=== PATIENT | male | born 1955 | race African-American/Black ===

== ENCOUNTER 2017-09-02 20:44 | Inpatient (IN) | payer OTHER ==
[~2017-09-02] VITALS: Ht 170.2 cm; Wt 60.0 kg
[~2017-09-02 20:44] MED LIST: ABAC1TAB PO; CIPR-255 PO; CIPR1TAB11 PO; CLOP1TAB15 PO; LAMI150T23 PO; [UNRECOGNIZED DRUG - CODE] PO
[2017-09-02] MEDS ORDERED: VANCOMYCIN 1GM ED/ASU OMNICELL IV STA (21:44)
--- NOTE | 2017-09-02 21:45 | DIAGNOSTIC IMAGING REPORT ---
CHEST ONE VIEW PORTABLE CLINICAL HISTORY: Sepsis. COMPARISON STUDY: No previous studies for comparison. FINDINGS: The patient is rotated. No pneumothorax or pleural effusion is noted. There is no consolidation to suggest pneumonia. Cardiac size is normal. Mediastinal contours are unremarkable when allowing for patient rotation. IMPRESSION: No acute cardiopulmonary findings. Electronically signed by: Butch Jeronimo M.D. 09/02/2017 9:43 PM Dictated Date/Time: 09/02/2017 9:43 PM
--- NOTE | 2017-09-02 21:56 | DIAGNOSTIC IMAGING REPORT ---
R FOOT MIN 3 VIEWS ROUTINE CLINICAL HISTORY: Evaluate for osteomyelitis. COMPARISON: CT of the right foot August 08, 2017. FINDINGS: Postoperative findings consistent with transmetatarsal amputation of the right first through fifth digits is noted. Open wound involving the first metatarsal is noted. There is subtle lucency at the resection site. There is subtle irregularity of the distal aspect of the third metatarsal as well. Alignment of the tarsometatarsal joints is anatomic. IMPRESSION: 1. Status post transmetatarsal amputation of the right first through fifth digits. Open wound involves the distal aspect of the remaining first metatarsal with subtle osteolysis within the first metatarsal which raises the possibility of osteomyelitis. 2. Equivocal osteomyelitis of the distal remaining third metatarsal. Electronically signed by: Butch Jeronimo M.D. 09/02/2017 9:54 PM Dictated Date/Time: 09/02/2017 9:47 PM
[2017-09-02 22:00] LABS: BASO % 0.3 %; BASO ABS # 0.02 K/uL (0-0.2); EOS % 1.4 %; EOS ABS # 0.08 K/uL (0-0.5); HEMATOCRIT 38.3 % (42-52); HEMOGLOBIN 13.3 g/dL (14.0-18.0); IG# 0.01 K/uL (0.00-0.02); LYMPH % 27.5 %; LYMPH ABS # 1.61 K/uL (1.2-3.4); MEAN CELL VOLUME 103.8 fL (80-100); MEAN CORPUSCULAR HGB CONC 34.7 g/dl (32-36); MEAN PLATELET VOLUME 9.4 fL (7.4-10.4); MONO % 5.6 %; MONO ABS # 0.33 K/uL (0.11-0.59); NEUT ABS # 3.81 K/uL (1.4-6.5); PLATELET COUNT 279 K/uL (130-400); RED CELL DISTRIBUTION WIDTH CV 14.3 % (11.5-14.5); RED CELL DISTRIBUTION WIDTH SD 54.8 fL (36.4-46.3); WHITE BLOOD COUNT 5.86 K/uL (4.8-10.8)
[2017-09-02 22:14] LABS: PTT PATIENT 23.5 SECONDS (21.0-31.0)
[2017-09-02 22:28] LABS: ALBUMIN 3.9 gm/dl (3.4-5.0); CALCIUM 9.5 mg/dl (8.5-10.1); CREATININE 1.06 mg/dl (0.60-1.40); POTASSIUM 3.9 mmol/L (3.5-5.1); TOTAL PROTEIN 8.1 gm/dl (6.4-8.2)
[2017-09-02] MEDS ORDERED: [UNRECOGNIZED DRUG - OTHER] PO (22:56)
[2017-09-02] MEDS ORDERED: CIPR-255 PO (22:59)
[2017-09-02] MEDS ORDERED: CARV6.25 PO (23:09)
[2017-09-02] MEDS ORDERED: GLC/500 PO (23:09)
[2017-09-02] MEDS ORDERED: ACET300T3 PO (23:09)
[2017-09-02] MEDS ORDERED: FLUO20CA35 PO (23:09)
[2017-09-02] MEDS ORDERED: EFAV600T PO (23:09)
[2017-09-02] MEDS ORDERED: MULT-506 PO (23:09)
[2017-09-02] MEDS ORDERED: VANCOMYCIN CONSULT ACTIVE PRN (23:15)
[2017-09-02] MEDS ORDERED: ACETAMINOPHEN 325 MG TAB PO PRN (23:15)
[2017-09-02] MEDS ORDERED: POLYETHYLENE (MIRALAX) 17 GM PACK PO PRN (23:15)
[2017-09-02] MEDS ORDERED: PIPERACILL/TAZOBAC CONSULT ACTIVE PRN (23:15)
[2017-09-02] MEDS ORDERED: ONDANSETRON INJ 2 MG/ML 2 ML VIAL IV PRN (23:15)
[2017-09-03] VITALS (7 sets, daily range): BP systolic 113–150; BP diastolic 67–82; PULSE 58–75; TEMP 36.6–37.2; O2SAT 99–100; Ht 170.2 cm; Wt 60.0 kg
--- NOTE | 2017-09-03 00:11 | EMERGENCY ROOM VISIT NOTE ---
History Report prepared by Diane: Nic Mariano Under the Supervision of: Dr. Artur Shukla M.D. First contact with patient: 20:48 Chief Complaint: WOUND INFECTION Stated Complaint: R FOOT INFECTION History of Present Illness The patient is a 62 year old male who presents to the Emergency Room with complaints of a wound on his right foot since his foot surgery on June 14. He states that he had a toe infection and had his toes removed at [facility] on June 14. He was discharged with aspirin and antibiotics. He has since been living with family in [place]. He reports that the wound on his foot has been open and exposing the bone for about a month and has since been placed back on antibiotics. He states that he has been sent to see a surgeon from [facility] who told him that he should have surgery, but the patient states he is waiting for a second opinion. He also notes that he was sent for blood work at the [facility] a couple days ago with no reported abnormalities. He states that today a new home care nurse told him that judging from the status of his foot, he should come to the ER. The patient does not believe it has been worsening recently. The patient denies fever or vomiting. He reports HIV for which he takes medication and that he is diabetic. He reports that he was told that the CT scan performed on August 08 was normal. Source of History: patient Onset: June 14 Position: foot (right) Quality: other (wound with bone exposed) Timing: constant Modifying Factors (Worsening): other (Palpation) Associated Symptoms: No fevers, No vomiting Review of Systems See HPI for pertinent positives & negatives. A total of 10 systems reviewed and were otherwise negative. Past Medical & Surgical Medical Problems: (1) Amputated toe (2) Diabetes (3) HIV (human immunodeficiency virus infection) (4) Osteomyelitis Family History Cancer Diabetes mellitus Hypertension Social History Smoking Status: Current Every Day Smoker Drug Use: marijuana Marital Status: Housing Status: lives with family Occupation Status: retired, disabled Current/Historical Medications Scheduled Abacavir Mugovkn-Wsknvhvuig-Zx (Trizivir), 1 TAB PO UD Carvedilol (Coreg), 6.25 MG PO Q12 Ciprofloxacin Hcl (Cipro), 500 MG PO BID Clopidogrel (Plavix), 75 MG PO DAILY Efavirenz (Sustiva), 600 MG PO HS Fluoxetine (Prozac), 20 MG PO DAILY Metformin Hcl (Glucophage), 500 MG PO BID Multivitamin (Multivitamin), 1 TAB PO DAILY Scheduled PRN Acetaminophen/Codeine (Tylenol W/Codeine #3), 2 TAB PO Q6H PRN for Pain Allergies Coded Allergies: No Known Allergies (Unverified , 07/28/17) Physical Exam Vital Signs Date Time Temp Pulse Resp B/P (MAP) Pulse Ox O2 Delivery O2 Flow Rate FiO2 09/02/17 23:07 76 18 136/70 99 Room Air 09/02/17 21:17 100 Room Air 09/02/17 20:47 36.7 79 142/90 100 Room Air Physical Exam Constitutional: Vital signs reviewed. Eyes: Pupils are equal round reactive to light. Conjunctiva are noninjected. ENT: Pharynx is clear without erythema or exudate. Mucous membranes are moist. Neck supple without meningeal signs. Respiratory: Clear to auscultation bilaterally. Breath sounds are equal bilaterally. Cardiovascular: Regular rate and rhythm. No rubs or gallops. GI: Soft, nondistended and nontender. Bowel sounds are present. Musculoskeletal: Open wound to right foot with amputation of all toes. First metatarsal is visible, no purulent discharge, diffuse tenderness Integumentary: No cyanosis. Neurological: The patient is awake and alert. No focal deficits. Psychiatric: Normal affect. Medical Decision & Procedures ER Provider Diagnostic Interpretation: Radiology results as stated below per my review and the radiologist's interpretation: Patient: LEYDA VALDEZ Address1: [address] [place] [address] Rec: [id number] Address2: Acct ID: [id number] [facility] Zip: [place] [address] Date: 1955 Sex: M Room/Bed: Ref Phy: [facility] SC: REBECCA Att Phy: Report #: [id number] Lynnette Phy: [facility] Test: [id number] Admit Phy: Healthcare Financial Analyst: LUCY Interpreting Phy: Butch Jeronimo MD Diagnosis: R FOOT INFECTION Ordering Phy: Artur Shukla MD Service Date: 09/02/17 Admit Date: 09/02/17 MNE: [id number] CONF: DICTATED BY: Butch Jeronimo MD]] CC: Artur Shukla M.D. [facility] Endcc: [~ rep ct add3]] CHEST ONE VIEW PORTABLE CLINICAL HISTORY: Sepsis. COMPARISON STUDY: No previous studies for comparison. FINDINGS: The patient is rotated. No pneumothorax or pleural effusion is noted. There is no consolidation to suggest pneumonia. Cardiac size is normal. Mediastinal contours are unremarkable when allowing for patient rotation. IMPRESSION: No acute cardiopulmonary findings. Electronically signed by: Butch Jeronimo M.D. 09/02/2017 9:43 PM Dictated Date/Time: 09/02/2017 9:43 PM Patient: LEYDA VALDEZ Address1: [address] [place] [address] Rec: [id number] Address2: Acct ID: [id number] [facility] Zip: [place] [address] Date: 1955 Sex: M Room/Bed: Ref Phy: [facility] SC: REBECCA Att Phy: Report #: [id number] Lynnette Phy: [facility] Test: FT Admit Phy: Healthcare Financial Analyst: LUCY Interpreting Phy: Butch Jeronimo MD Diagnosis: R FOOT INFECTION Ordering Phy: Artur Shukla MD Service Date: 09/02/17 Admit Date: 09/02/17 MNE: [id number] CONF: DICTATED BY: Butch Jeronimo MD]] CC: Artur Shukla M.D. [facility] Endcc: [~ rep ct add3]] R FOOT MIN 3 VIEWS ROUTINE CLINICAL HISTORY: Evaluate for osteomyelitis. COMPARISON: CT of the right foot August 08, 2017. FINDINGS: Postoperative findings consistent with transmetatarsal amputation of the right first through fifth digits is noted. Open wound involving the first metatarsal is noted. There is subtle lucency at the resection site. There is subtle irregularity of the distal aspect of the third metatarsal as well. Alignment of the tarsometatarsal joints is anatomic. IMPRESSION: 1. Status post transmetatarsal amputation of the right first through fifth digits. Open wound involves the distal aspect of the remaining first metatarsal with subtle osteolysis within the first metatarsal which raises the possibility of osteomyelitis. 2. Equivocal osteomyelitis of the distal remaining third metatarsal. Electronically signed by: Butch Jeronimo M.D. 09/02/2017 9:54 PM Dictated Date/Time: 09/02/2017 9:47 PM Laboratory Results 09/02/17 21:34 Red Blood Count 3.69, Mean Corpuscular Volume 103.8, Mean Corpuscular Hemoglobin 36.0, Mean Corpuscular Hemoglobin Concent 34.7, Mean Platelet Volume 9.4, Neutrophils (%) (Auto) 65.0, Lymphocytes (%) (Auto) 27.5, Monocytes (%) ( Auto) 5.6, Eosinophils (%) (Auto) 1.4, Basophils (%) (Auto) 0.3, Neutrophils # ( Auto) 3.81, Lymphocytes # (Auto) 1.61, Monocytes # (Auto) 0.33, Eosinophils # ( Auto) 0.08, Basophils # (Auto) 0.02 09/02/17 21:34 Test 09/02/17 21:34 09/02/17 21:46 White Blood Count 5.86 K/uL (4.8-10.8) Red Blood Count 3.69 M/uL (4.7-6.1) Hemoglobin 13.3 g/dL (14.0-18.0) Hematocrit 38.3 % (42-52) Mean Corpuscular Volume 103.8 fL (80-100) Mean Corpuscular Hemoglobin 36.0 pg (25-34) Mean Corpuscular Hemoglobin Concent 34.7 g/dl (32-36) Platelet Count 279 K/uL (130-400) Mean Platelet Volume 9.4 fL (7.4-10.4) Neutrophils (%) (Auto) 65.0 % Lymphocytes (%) (Auto) 27.5 % Monocytes (%) (Auto) 5.6 % Eosinophils (%) (Auto) 1.4 % Basophils (%) (Auto) 0.3 % Neutrophils # (Auto) 3.81 K/uL (1.4-6.5) Lymphocytes # (Auto) 1.61 K/uL (1.2-3.4) Monocytes # (Auto) 0.33 K/uL (0.11-0.59) Eosinophils # (Auto) 0.08 K/uL (0-0.5) Basophils # (Auto) 0.02 K/uL (0-0.2) RDW Standard Deviation 54.8 fL (36.4-46.3) RDW Coefficient of Variation 14.3 % (11.5-14.5) Immature Granulocyte % (Auto) 0.2 % Immature Granulocyte # (Auto) 0.01 K/uL (0.00-0.02) Prothrombin Time 10.1 SECONDS (9.0-12.0) Prothromb Time International Ratio 1.0 (0.9-1.1) Activated Partial Thromboplast Time 23.5 SECONDS (21.0-31.0) Partial Thromboplastin Ratio 0.9 Anion Gap 8.0 mmol/L (3-11) Est Creatinine Clear Calc Drug Dose 59.7 ml/min Estimated GFR () 85.5 Estimated GFR (Non- 73.8 BUN/Creatinine Ratio 25.0 (10-20) Calcium Level 9.5 mg/dl (8.5-10.1) Total Bilirubin 0.1 mg/dl (0.2-1) Aspartate Amino Transf (AST/SGOT) 12 U/L (15-37) Alanine Aminotransferase (ALT/SGPT) 20 U/L (12-78) Alkaline Phosphatase 149 U/L (45-117) Total Protein 8.1 gm/dl (6.4-8.2) Albumin 3.9 gm/dl (3.4-5.0) Globulin 4.2 gm/dl (2.5-4.0) Albumin/Globulin Ratio 0.9 (0.9-2) Bedside Lactic Acid Venous 2.80 mmol/L (0.90-1.70) Laboratory results as reviewed by me. Medications Administered Medications (Trade) Dose Ordered Sig/Sea Route Start Time Stop Time Status Last Admin Dose Admin Vancomycin HCl (Vancomycin 1gm Ed/Asu Omnicell) 1 gm NOW STAT IV 09/02/17 21:44 09/02/17 21:46 DC 09/02/17 21:57 1 GM ED Course 2057: The patient was evaluated in room C4. A complete history and physical exam was performed. 2143: Ordered Vancomycin HCl 1 gm IV. 2234: I spoke with Dr. Froylan Araujo Hospitalist. He will reevaluate the patient for admission. Medical Decision This is a 62-year-old male who presents with right foot pain. Differential diagnosis includes wound infection, sepsis, osteomyelitis, outpatient treatment failure, cellulitis, abscess. I did perform a limited focused review of portions of the patient's old chart on the electronic medical record. The patient had a August 02 debridement of right foot wound. He had a CT scan of the right leg August 08. Concerning of osteomyelitis of the 5th right metatarsal bone. I did evaluate the patient as noted above. The patient has a nonhealing wound to the right foot. It is open with bone exposed. Apparently it has been this way for a month. He had a CAT scan on August 08 which was concerning for osteomyelitis. He was told he needed surgery but declined at the time, waiting for a second opinion. He was sent here today by a home health nurse who was concerned about the appearance of the foot. IV access was established. The patient was placed on a continuous supervisor order takers. I did order and personally review the patient's foot x-ray as described above. He does have signs of osteomyelitis. I did order and review the patient's blood work as noted in the electronic medical record. Lactic acid is elevated. Blood cultures were obtained. I did treat the patient with IV vancomycin. The patient has a history of diabetes, HIV and peripheral vascular disease. I did recommend hospitalization for further care and evaluation. I did discuss the case with the hospitalist and trimming caser. Medication Reconcilliation Current Medication List: was personally reviewed by me Blood Pressure Screening Patient's blood pressure: Elevated blood pressure Blood pressure disposition: Referred to PCP Consults Time Called: 2228 Consulting Physician: Dr. Froylan Araujo Hospitalist Returned Call: [phone] Froylan Araujo Hospitalkim. He will reevaluate the patient for hospitalization. Impression Primary Impression: Osteomyelitis of right foot Additional Impressions: HIV (human immunodeficiency virus infection) Failure of outpatient treatment Scribe Attestation The scribe's documentation has been prepared under my direct and personally reviewed by me in its entirety. I confirm that the note above accurately reflects all work, treatment, procedures, and medical decision making performed by me. Departure Information Dispostion Being Evaluated By Hospitalist Referrals No Doctor, Assigned (PCP) Patient Instructions My [facility] Problem Qualifiers Primary Impression: Osteomyelitis of right foot Osteomyelitis type: unspecified type Qualified Codes: M86.9 - Osteomyelitis , unspecified
[2017-09-03] MEDS ORDERED: VANCOMYCIN IV 500 MG in SODIUM CHLORIDE 0.9% 250ML 250 ML IV STA (00:14)
[2017-09-03] MEDS ORDERED: PIPERACILL/TAZOBAC IV 4.5 GM in DEXTROSE 5% 100ML 100 ML IV STA (00:15)
--- NOTE | 2017-09-03 00:39 | HISTORY & PHYSICAL EXAMINATION ---
DATE OF ADMISSION: 09/02/2017 CHIEF COMPLAINT: Right foot infection. HISTORY OF PRESENT ILLNESS: A 62-year-old male with past medical history significant for hypertension, diabetes, HIV positive, on antivirals. Presents with right foot infection. The patient recently moved to [place] to live with his son. In [facility] in [place] he had right toe 1 to 5 amputation. The patient says after that he moved to [place] and [facility] He is on antibiotics, Cipro, but today home care nurse saw him and said that he needed to come to the hospital. His bone is exposed on the right foot but no foul smelling and drainage seen. No obvious erythema seen. Denies any fever, chills. Currently resting comfortably and hemodynamically stable. No blurred vision, no chest pain. Denies any headaches. No earaches. No chest pain, no shortness of breath, no nausea, no vomiting, no abdominal pain. Says he is doing okay and everything else is fine and does not want to answer the review questions. ALLERGIES: No known drug allergies. PAST MEDICAL HISTORY: As mentioned. PAST SURGICAL HISTORY: He says he just had amputation of his left foot toes. MEDICATIONS: Patient is on Cipro 500 mg p.o. b.i.d., metformin 500 mg p.o. b.i.d., Trizivir 1 tablet as directed, Tylenol with codeine 2 tablets p.o. q. 6 hours p.r.n., Coreg 6.25 mg p.o. b.i.d., Plavix 75 mg p.o. daily, Sustiva 600 mg p.o. at bedtime, Prozac 20 mg p.o. daily, multivitamin 1 tablet p.o. daily. FAMILY HISTORY: Says both of his parents are . SOCIAL HISTORY: He quit smoking, denies any alcohol use. REVIEW OF SYMPTOMS: As per HPI. Rest of the symptoms, patient is not answering. PHYSICAL EXAMINATION: GENERAL: Patient is of moderate build, not in distress. VITAL SIGNS: Temperature 36.7, pulse 100, respiratory rate 18, blood pressure 142/90, oxygen 100% room air. HEENT: No pallor, no icterus. NECK: No neck masses. CARDIOVASCULAR: S1, S2 heard, regular rate and rhythm, no murmur, no gallop. RESPIRATORY SYSTEM: Normal AP diameter. No accessory muscle use. No wheezing, no crackles. ABDOMEN: Soft, bowel sounds present, nontender, no distention. CENTRAL NERVOUS SYSTEM: Nonfocal. EXTREMITIES: No edema seen. Right foot from first to fifth toe s/p amputation amputation site is exposed with visible bone, but no drainage and no foul swelling or erythema seen. LABORATORIES: WBC 5.8, hemoglobin 13.3, hematocrit 38.3, platelets 279. Sodium 139, potassium 3.9, chloride 107, bicarbonate 24, BUN 27, creatinine 1.06, serum glucose 128, point of care lactic acid 2.8, calcium 9.5, total bilirubin 0.1, , AST 12, ALT 20, alkaline phosphatase is 149. PT 10.1, INR 1, APTT 23.5. Foot x-ray, status post transmetatarsal amputation of right 1st through 5th digits, Open wound involves the distal aspect of the remaining first metatarsal with subtle osteolysis within the first metatarsal space with raises a possibility of osteomyelitis, Equivocal osteomyelitis of the distal remaining 3rd metatarsal. No acute cardiopulmonary findings. ASSESSMENT AND PLAN: This is a 62-year-old male who presents with possible osteomyelitis of the Right foot. 1. Osteomyelitis of the Right foot, recently had amputation of 1st through 5th digits of his right foot at [facility]. Currently, came to live with his son in [place], [facility]. There is an open wound with bone exposed. Does not complain of much pain. No drainage . We will place him on IV Zosyn and IV vancomycin. Consult ortho and ID and wound care and monitor on medical floor. 2. History of HIV. Continue his home medications. 3. Diabetes. Hold metformin. Place on insulin sliding scale. 4. Hypertension. Continue his Coreg. 5. Deep venous thrombosis prophylaxis, heparin subQ. DISPOSITION: Admit to medical floor. Expect to discharge home and follow with his family doctor. Level 1 full code. MTDD
[2017-09-03] MEDS: SODIUM CHLORIDE 0.9% 1000ML 1,000 ML IV SCH ×2 (01:10→23:45)
[2017-09-03] MEDS: INSULIN ASPART 100 UNITS/ML 3 ML PEN SC SCH ×4 (08:00→21:00)
[2017-09-03 08:07] LABS: BASO % 0.2 %; BASO ABS # 0.01 K/uL (0-0.2); EOS % 1.7 %; EOS ABS # 0.08 K/uL (0-0.5); HEMATOCRIT 31.9 % (42-52); HEMOGLOBIN 11.1 g/dL (14.0-18.0); LYMPH % 28.6 %; LYMPH ABS # 1.38 K/uL (1.2-3.4); MEAN CELL VOLUME 103.6 fL (80-100); MEAN CORPUSCULAR HGB CONC 34.8 g/dl (32-36); MEAN PLATELET VOLUME 8.9 fL (7.4-10.4); MONO % 9.3 %; MONO ABS # 0.45 K/uL (0.11-0.59); NEUT % 60.2 %; PLATELET COUNT 255 K/uL (130-400); RED CELL DISTRIBUTION WIDTH CV 14.1 % (11.5-14.5); RED CELL DISTRIBUTION WIDTH SD 53.1 fL (36.4-46.3); WHITE BLOOD COUNT 4.82 K/uL (4.8-10.8)
[2017-09-03 08:32] LABS: CALCIUM 8.6 mg/dl (8.5-10.1); CREATININE 0.89 mg/dl (0.60-1.40); POTASSIUM 3.8 mmol/L (3.5-5.1)
[2017-09-03] MEDS: PIPERACILL/TAZOBAC IV 4.5 GM in D5W 100 ML IV SCH ×3 (08:43→23:49)
[2017-09-03] MEDS: CARVEDILOL 6.25 MG TAB PO SCH ×2 (08:51→20:37)
[2017-09-03] MEDS: FLUOXETINE HCL 20 MG CAP PO SCH (08:51)
[2017-09-03] MEDS: MULTIVITAMIN TAB PO SCH (08:51)
[2017-09-03] MEDS: CLOPIDOGREL BISULFATE 75 MG TAB PO SCH (08:51)
[2017-09-03] MEDS: HEPARIN SOD 5000 UNIT/0.5 ML CARP SQ SCH ×2 (08:58→20:39)
[2017-09-03] MEDS: VANCOMYCIN IV 750 MG in SODIUM CHLORIDE 0.9% 250ML 250 ML IV SCH (13:39)
[2017-09-03] MEDS ORDERED: VANCOMYCIN IV 750 MG in SODIUM CHLORIDE 0.9% 250ML 250 ML IV SCH (14:00)
--- NOTE | 2017-09-03 14:22 | Medical Consult ---
Consultation Date of Consultation: Sep 03, 2017. Attending Physician: Frandy Moffett M.D. Reason for Consultation: Osteomyelitis left foot History of Present Illness 62-year-old male with longstanding HIV infection, well maintained on current anti-retroviral medications with reportedly undetectable viral load good CD4 count, was hospitalized in June for left foot infection, ultimately requiring transmetatarsal amputation. Patient reportedly receiving ciprofloxacin after discharge. He was now referred the hospital by wound care nurse because of worsening left foot wound with exposed bone and purulent drainage with foul odor. Patient denies any significant fever or chills. Currently without pain in his foot, up to 3/10 in intensity in recent past. He has been started empirically on vancomycin and Zosyn, cultures are pending. Orthopedic consultation pending. Past Medical/Surgical History Medical Problems: (1) Diabetic foot ulcer Status: Acute (2) Failure of outpatient treatment Status: Acute (3) Osteomyelitis of right foot Status: Acute (4) Skin wound from surgical incision Status: Acute Medical Problems: (1) Amputated toe (2) Diabetes (3) HIV (human immunodeficiency virus infection) (4) Osteomyelitis Family History Cancer Diabetes mellitus Hypertension Social History Smoking Status: Former Smoker Drug Use: marijuana Marital Status: Housing Status: lives with family Occupation Status: retired, disabled Allergies Coded Allergies: No Known Allergies (Unverified , 07/28/17) Current Inpatient Medications Current Inpatient Medications Medications (Trade) Dose Ordered Sig/Sea Route Start Time Stop Time Status Last Admin Dose Admin Acetaminophen (Tylenol Tab) 650 mg Q4H PRN PO 09/02/17 23:15 10/02/17 23:14 Polyethylene (Miralax Powder Packet) 17 gm DAILY PRN PO 09/02/17 23:15 10/02/17 23:14 Ondansetron HCl (Zofran Inj) 4 mg Q6H PRN IV 09/02/17 23:15 10/02/17 23:14 Heparin Sodium (Porcine) (Heparin Sq 5000 Unit/0.5ml) 5,000 unit Q12H SQ 09/03/17 09:00 10/03/17 08:59 09/03/17 08:58 5,000 UNIT Acetaminophen/ Codeine Phosphate (Tylenol w/ Codeine #3 Tab) 2 tab Q6H PRN PO 09/02/17 23:15 10/02/17 23:14 Carvedilol (Coreg Tab) 6.25 mg Q12 PO 09/03/17 09:00 10/03/17 08:59 09/03/17 08:51 6.25 MG Clopidogrel Bisulfate (plAVix TAB) 75 mg DAILY PO 09/03/17 09:00 10/03/17 08:59 09/03/17 08:51 75 MG Fluoxetine HCl (Prozac Cap) 20 mg DAILY PO 09/03/17 09:00 10/03/17 08:59 09/03/17 08:51 20 MG Multivitamins (Multivitamin Tab) 1 tab DAILY PO 09/03/17 09:00 10/03/17 08:59 09/03/17 08:51 1 TAB Miscellaneous Information (Order Awaiting Action) 1 ea QS N/A 09/03/17 08:00 10/03/17 07:59 Miscellaneous Information (Order Awaiting Action) 1 ea QS N/A 09/03/17 08:00 10/03/17 07:59 Vancomycin HCl (Consult) 1 ea UD PRN N/A 09/02/17 23:15 10/02/17 23:14 Miscellaneous Information (Consult) 1 ea UD PRN N/A 09/02/17 23:15 10/02/17 23:14 Sodium Chloride 1,000 ml @ 50 mls/hr Q20H IV 09/02/17 23:59 10/02/17 23:58 09/03/17 01:10 50 MLS/HR Insulin Aspart (novoLOG ASPART) SLIDING SCALE G... ACHS SC 09/03/17 07:00 10/03/17 06:59 Piperacillin Sod/ Tazobactam Sod 4.5 gm/Dextrose 120 ml @ 30 mls/hr Q8H IV 09/03/17 08:00 10/15/17 07:59 09/03/17 08:43 30 MLS/HR Vancomycin HCl 750 mg/Sodium Chloride 265 ml @ 125 mls/hr Q12H IV 09/03/17 14:00 10/15/17 13:59 09/03/17 13:39 125 MLS/HR Review of Systems All systems were reviewed and are negative except as per HPI Physical Exam Date Time Temp Pulse Resp B/P (MAP) Pulse Ox O2 Delivery O2 Flow Rate FiO2 09/03/17 09:01 75 119/79 (92) 09/03/17 08:00 Room Air 09/03/17 06:27 36.6 70 16 113/76 (88) 100 Room Air 09/03/17 01:24 37.2 73 15 139/82 100 Room Air 09/03/17 00:03 37.2 73 15 139/82 (101) 100 Room Air 09/03/17 00:00 Room Air 09/02/17 23:07 76 18 136/70 99 Room Air 09/02/17 21:17 100 Room Air 09/02/17 20:47 36.7 79 142/90 100 Room Air General Appearance: WD/WN, no apparent distress Head: normocephalic, atraumatic Eyes: normal inspection, EOMI, sclerae normal ENT: normal ENT inspection, pharynx normal Neck: supple, no adenopathy, thyroid normal, trachea midline Respiratory/Chest: chest non-tender, lungs clear, normal breath sounds, no respiratory distress Cardiovascular: regular rate, rhythm, no gallop, no murmur Abdomen/GI: normal bowel sounds, non tender, soft, no organomegaly Back: normal inspection, no CVA tenderness Extremities/Musculoskelatal: no calf tenderness, non-tender Neurologic/Psych: alert, oriented x 3 Skin: normal color, no rash, + pertinent finding (Transmetatarsal site indurated with exposed bone) Laboratory Results Date/Time Source Procedure Growth Status 09/02/17 21:45 Blood Blood Culture Pending Received 09/02/17 21:34 Blood Blood Culture Pending Received Last 24 Hours Test 09/02/17 21:34 09/02/17 21:46 09/03/17 07:33 09/03/17 08:24 White Blood Count 5.86 K/uL 4.82 K/uL Red Blood Count 3.69 M/uL 3.08 M/uL Hemoglobin 13.3 g/dL 11.1 g/dL Hematocrit 38.3 % 31.9 % Mean Corpuscular Volume 103.8 fL 103.6 fL Mean Corpuscular Hemoglobin 36.0 pg 36.0 pg Mean Corpuscular Hemoglobin Concent 34.7 g/dl 34.8 g/dl Platelet Count 279 K/uL 255 K/uL Mean Platelet Volume 9.4 fL 8.9 fL Neutrophils (%) (Auto) 65.0 % 60.2 % Lymphocytes (%) (Auto) 27.5 % 28.6 % Monocytes (%) (Auto) 5.6 % 9.3 % Eosinophils (%) (Auto) 1.4 % 1.7 % Basophils (%) (Auto) 0.3 % 0.2 % Neutrophils # (Auto) 3.81 K/uL 2.90 K/uL Lymphocytes # (Auto) 1.61 K/uL 1.38 K/uL Monocytes # (Auto) 0.33 K/uL 0.45 K/uL Eosinophils # (Auto) 0.08 K/uL 0.08 K/uL Basophils # (Auto) 0.02 K/uL 0.01 K/uL RDW Standard Deviation 54.8 fL 53.1 fL RDW Coefficient of Variation 14.3 % 14.1 % Immature Granulocyte % (Auto) 0.2 % 0.0 % Immature Granulocyte # (Auto) 0.01 K/uL 0.00 K/uL Prothrombin Time 10.1 SECONDS Prothromb Time International Ratio 1.0 Activated Partial Thromboplast Time 23.5 SECONDS Partial Thromboplastin Ratio 0.9 Sodium Level 139 mmol/L 139 mmol/L Potassium Level 3.9 mmol/L 3.8 mmol/L Chloride Level 107 mmol/L 110 mmol/L Carbon Dioxide Level 24 mmol/L 22 mmol/L Anion Gap 8.0 mmol/L 7.0 mmol/L Blood Urea Nitrogen 27 mg/dl 22 mg/dl Creatinine 1.06 mg/dl 0.89 mg/dl Est Creatinine Clear Calc Drug Dose 59.7 ml/min 71.2 ml/min Estimated GFR () 85.5 104.7 Estimated GFR (Non- 73.8 90.4 BUN/Creatinine Ratio 25.0 24.7 Random Glucose 128 mg/dl 126 mg/dl Calcium Level 9.5 mg/dl 8.6 mg/dl Total Bilirubin 0.1 mg/dl Aspartate Amino Transf (AST/SGOT) 12 U/L Alanine Aminotransferase (ALT/SGPT) 20 U/L Alkaline Phosphatase 149 U/L Total Protein 8.1 gm/dl Albumin 3.9 gm/dl Globulin 4.2 gm/dl Albumin/Globulin Ratio 0.9 Bedside Lactic Acid Venous 2.80 mmol/L Magnesium Level 1.7 mg/dl Bedside Glucose 114 mg/dl Test 09/03/17 12:00 Bedside Glucose 114 mg/dl R FOOT MIN 3 VIEWS ROUTINE CLINICAL HISTORY: Evaluate for osteomyelitis. COMPARISON: CT of the right foot August 08, 2017. FINDINGS: Postoperative findings consistent with transmetatarsal amputation of the right first through fifth digits is noted. Open wound involving the first metatarsal is noted. There is subtle lucency at the resection site. There is subtle irregularity of the distal aspect of the third metatarsal as well. Alignment of the tarsometatarsal joints is anatomic. IMPRESSION: 1. Status post transmetatarsal amputation of the right first through fifth digits. Open wound involves the distal aspect of the remaining first metatarsal with subtle osteolysis within the first metatarsal which raises the possibility of osteomyelitis. 2. Equivocal osteomyelitis of the distal remaining third metatarsal. Electronically signed by: Butch Jeronimo M.D. 09/02/2017 9:54 PM Dictated Date/Time: 09/02/2017 9:47 PM Assessment & Plan 62-year-old diabetic male with HIV infection status post right transmetatarsal amputation now with open wound with exposed bone and likely osteomyelitis. Pending further cultures, vancomycin and Zosyn should provide adequate coverage. Would recommend surgical consultation is likely will need revision surgery. Will continue on his HIV medications. Will follow.
--- NOTE | 2017-09-03 17:24 | Progress Note ---
Internal Med Progress Note Date of Service: Sep 03, 2017. Provider Documentation: SUBJECTIVE: The patient was seen and examined in medical floor He was admitted yesterday with possible osteomyelitis involving the toe amputation site on left foot He does not have any significant symptoms associated with the wound He was seen by the visiting nurse at home who mentioned that the wound has been getting worse. There was a family dispute especially with his [id number] and he called the police for help. Following that he was taken to emergency room and now he is admitted for continuation of care He denies any complaints today OBJECTIVE: Vital Signs-as noted below Exam: General-no apparent distress Denies any pain or drainages from the wound Eyes-normal ENT-normal Neck-supple Lungs-clear to auscultate bilaterally Heart-regular Abdomen-benign, soft, nontender, no organomegaly Extremities-no edema, chronic skin changes, no palpable pulses All of the toes on left foot are amputated Amputation stem has a skin gap with visible first metatarsal bone Minimal to no surrounding inflammation Neuro-alert, awake and oriented 3 No focal sensory and/or motor deficit appreciated Lab data as noted below. ASSESSMENT & PLAN: He is a 62-year-old male with past medical history significant for hypertension , diabetes, HIV positive, on antivirals presented with the open and reasonably healed left foot amputation site with the possibility of ongoing osteomyelitis. Osteomyelitis of the Right foot, Status post amputation of 1st through 5th digits of his right foot at [facility] in June of this year There is an open wound with bone exposed-has been there for the last 3 months or so No complaints of pain , swelling , redness , tenderness and more drainages Has exposed terminal part of first metatarsal bone suspicious for osteomyelitis Started on IV Zosyn and IV vancomycin. Appreciate ID input and recommendation Ortho has been consulted Patient denies any symptoms History of HIV. Continue his home medications. Any further recommendation as per ID Diabetes. Hold metformin. Place on insulin sliding scale. Check hemoglobin A1c Hypertension. Continue his Coreg. Deep venous thrombosis prophylaxis, heparin subQ. Social issues; this is what he mentioned about his current living situation. He was in [place] and going with his livelihood without any significant problem He moved to [place] about 3 months back and has been living with his son and [id number] who has been sharing his social security check. He personally does not like to be cared like a child by her [id number]. Following that cell or agreement with his [id number] yesterday he had to call the police for help and following that he was brought into the emergency room for further evaluation of his right foot wound. DISPOSITION: Admit to medical floor. Expect to discharge home and follow with his family doctor. Level 1 full code. Vital Signs: Date Time Temp Pulse Resp B/P (MAP) Pulse Ox O2 Delivery O2 Flow Rate FiO2 09/03/17 16:00 Room Air 09/03/17 14:59 37.1 65 16 117/71 (86) 99 Room Air 09/03/17 09:01 75 119/79 (92) 09/03/17 08:00 Room Air 09/03/17 06:27 36.6 70 16 113/76 (88) 100 Room Air 09/03/17 01:24 37.2 73 15 139/82 100 Room Air 09/03/17 00:03 37.2 73 15 139/82 (101) 100 Room Air 09/03/17 00:00 Room Air 09/02/17 23:07 76 18 136/70 99 Room Air 09/02/17 21:17 100 Room Air 09/02/17 20:47 36.7 79 142/90 100 Room Air Lab Results: Results Past 24 Hours Test 09/02/17 21:34 09/02/17 21:46 09/03/17 07:33 09/03/17 08:24 Range/Units White Blood Count 5.86 4.82 4.8-10.8 K/uL Red Blood Count 3.69 3.08 4.7-6.1 M/uL Hemoglobin 13.3 11.1 14.0-18.0 g/dL Hematocrit 38.3 31.9 42-52 % Mean Corpuscular Volume 103.8 103.6 80-100 fL Mean Corpuscular Hemoglobin 36.0 36.0 25-34 pg Mean Corpuscular Hemoglobin Concent 34.7 34.8 32-36 g/dl Platelet Count 279 255 130-400 K/uL Mean Platelet Volume 9.4 8.9 7.4-10.4 fL Neutrophils (%) (Auto) 65.0 60.2 % Lymphocytes (%) (Auto) 27.5 28.6 % Monocytes (%) (Auto) 5.6 9.3 % Eosinophils (%) (Auto) 1.4 1.7 % Basophils (%) (Auto) 0.3 0.2 % Neutrophils # (Auto) 3.81 2.90 1.4-6.5 K/uL Lymphocytes # (Auto) 1.61 1.38 1.2-3.4 K/uL Monocytes # (Auto) 0.33 0.45 0.11-0.59 K/uL Eosinophils # (Auto) 0.08 0.08 0-0.5 K/uL Basophils # (Auto) 0.02 0.01 0-0.2 K/uL RDW Standard Deviation 54.8 53.1 36.4-46.3 fL RDW Coefficient of Variation 14.3 14.1 11.5-14.5 % Immature Granulocyte % (Auto) 0.2 0.0 % Immature Granulocyte # (Auto) 0.01 0.00 0.00-0.02 K/uL Prothrombin Time 10.1 9.0-12.0 SECONDS Prothromb Time International Ratio 1.0 0.9-1.1 Activated Partial Thromboplast Time 23.5 21.0-31.0 SECONDS Partial Thromboplastin Ratio 0.9 Sodium Level 139 139 136-145 mmol/L Potassium Level 3.9 3.8 3.5-5.1 mmol/L Chloride Level 107 110 98-107 mmol/L Carbon Dioxide Level 24 22 21-32 mmol/L Anion Gap 8.0 7.0 3-11 mmol/L Blood Urea Nitrogen 27 22 7-18 mg/dl Creatinine 1.06 0.89 0.60-1.40 mg/dl Est Creatinine Clear Calc Drug Dose 59.7 71.2 ml/min Estimated GFR () 85.5 104.7 Estimated GFR (Non- 73.8 90.4 BUN/Creatinine Ratio 25.0 24.7 10-20 Random Glucose 128 126 70-99 mg/dl Calcium Level 9.5 8.6 8.5-10.1 mg/dl Total Bilirubin 0.1 0.2-1 mg/dl Aspartate Amino Transf (AST/SGOT) 12 15-37 U/L Alanine Aminotransferase (ALT/SGPT) 20 12-78 U/L Alkaline Phosphatase 149 45-117 U/L Total Protein 8.1 6.4-8.2 gm/dl Albumin 3.9 3.4-5.0 gm/dl Globulin 4.2 2.5-4.0 gm/dl Albumin/Globulin Ratio 0.9 0.9-2 Bedside Lactic Acid Venous 2.80 0.90-1.70 mmol/L Magnesium Level 1.7 1.8-2.4 mg/dl Bedside Glucose 114 70-99 mg/dl Test 09/03/17 12:00 Range/Units Bedside Glucose 114 70-99 mg/dl Microbiology Results 09/02/17 Blood Culture, Received Pending 09/02/17 Blood Culture, Received Pending
[2017-09-04] MEDS: VANCOMYCIN IV 750 MG in SODIUM CHLORIDE 0.9% 250ML 250 ML IV SCH ×2 (02:09→14:31)
--- NOTE | 2017-09-04 05:41 | DIAGNOSTIC IMAGING REPORT ---
ADDENDUM Review of the examination again confirms the presence of a stent within the right superficial femoral artery. It is patent. Although waveforms are bi/ triphasic, overall flow characteristics are somewhat diminished. This indicates considerable arterial occlusive change inferior to the knees bilaterally. There may be a small focal area of occlusion with a dampened reconstitution involving the popliteal artery on the right. These findings correlate well with the MICAELA indices. IMPRESSION:. Review of the study indicates significant arterial occlusive change inferior to the knees bilaterally, with potential small focal occlusion right popliteal vessel with immediate reconstitution. Dampened waveforms and flow bilaterally. Electronically signed by: Wilian Hernandez M.D. 09/05/2017 9:47 AM Dictated Date/Time: 09/05/2017 9:41 AM ORIGINAL REPORT ART DOP LOWER EXT BILAT CLINICAL HISTORY: r/o PAD arterial occlusive change COMPARISON STUDY: None FINDINGS: Real-time as well as Doppler evaluation of the arterial structures of the lower legs was performed. Waveforms are triphasic throughout. Velocity characteristics are unremarkable. Triphasic waveforms are noted within the right thigh. There is a stent within the right superficial femoral artery. The stent is patent. Vascular flow characteristics of the right lower extremity are unremarkable. There is diffuse ankle brachial index on the right is 0.51. On the left, posterior tibial ankle brachial index 0.63 and dorsalis pedis 0.58. There is a focal a small focal area of occlusion of the mid left superficial femoral artery. Moderate arterial occlusive changes seen throughout small vessel throughout bilaterally. IMPRESSION: Normal study. 1. Stent within the right superficial femoral artery which is patent. 2. Moderate to moderate a significant small vessel arterial occlusive change bilaterally. 3. Small focal area of stenosis and occlusion Mid distal left superficial femoral artery with moderate reconstitution. The above report was generated using voice recognition software. It may contain grammatical, syntax or spelling errors. Electronically signed by: Wilian Hernandez M.D. 09/04/2017 5:39 AM Dictated Date/Time: 09/04/2017 5:37 AM
[2017-09-04 06:02] LABS: BASO % 0.3 %; BASO ABS # 0.01 K/uL (0-0.2); EOS % 1.8 %; EOS ABS # 0.07 K/uL (0-0.5); HEMATOCRIT 31.4 % (42-52); HEMOGLOBIN 10.8 g/dL (14.0-18.0); IG# 0.01 K/uL (0.00-0.02); LYMPH ABS # 1.57 K/uL (1.2-3.4); MEAN CELL VOLUME 102.6 fL (80-100); MEAN CORPUSCULAR HEMOGLOBIN 35.3 pg (25-34); MEAN CORPUSCULAR HGB CONC 34.4 g/dl (32-36); MEAN PLATELET VOLUME 8.8 fL (7.4-10.4); MONO % 11.5 %; MONO ABS # 0.44 K/uL (0.11-0.59); NEUT % 45.1 %; NEUT ABS # 1.73 K/uL (1.4-6.5); PLATELET COUNT 242 K/uL (130-400); RED CELL DISTRIBUTION WIDTH CV 13.8 % (11.5-14.5); RED CELL DISTRIBUTION WIDTH SD 51.6 fL (36.4-46.3); WHITE BLOOD COUNT 3.83 K/uL (4.8-10.8)
[2017-09-04 06:24] LABS: CALCIUM 7.7 mg/dl (8.5-10.1); CREATININE 0.86 mg/dl (0.60-1.40); POTASSIUM 3.7 mmol/L (3.5-5.1)
[2017-09-04 07:01] VITALS: BP 128/80; PULSE 63; TEMP 37.1; O2SAT 99
[2017-09-04] MEDS: PIPERACILL/TAZOBAC IV 4.5 GM in D5W 100 ML IV SCH ×2 (07:34→16:25)
[2017-09-04] MEDS: CARVEDILOL 6.25 MG TAB PO SCH ×2 (08:42→21:27)
[2017-09-04] MEDS: MULTIVITAMIN TAB PO SCH (08:42)
[2017-09-04] MEDS: CLOPIDOGREL BISULFATE 75 MG TAB PO SCH (08:42)
[2017-09-04] MEDS: FLUOXETINE HCL 20 MG CAP PO SCH (08:43)
[2017-09-04] MEDS: HEPARIN SOD 5000 UNIT/0.5 ML CARP SQ SCH ×2 (08:45→21:22)
[2017-09-04] MEDS: INSULIN ASPART 100 UNITS/ML 3 ML PEN SC SCH ×4 (08:45→21:00)
[2017-09-04] MEDS ORDERED: VANCOMYCIN TROUGH ONE ×2 (13:30→17:30)
--- NOTE | 2017-09-04 14:28 | Progress Note ---
Medicine Progress Note Date & Time of Visit: Sep 04, 2017 at 14:28. Subjective CC: Follow-up visit for osteomyelitis right foot and other problems. HPI: No fever. Has intermittent foot pain. No drainage from wound. ROS: General- no fever, no chills Resp- no cough; no shortness of breath Cardiac- no chest pain, no edema GI- no nausea, no vomiting, no diarrhea, no constipation - no dysuria, no difficulty voiding . Objective Last 8 Hrs Date Time Temp Pulse Resp B/P (MAP) Pulse Ox O2 Delivery O2 Flow Rate FiO2 09/04/17 07:30 Room Air 09/04/17 07:01 37.1 63 18 128/80 (96) 99 Room Air Physical Exam: General- lying in bed; no distress Lungs- clear to auscultation; no respiratory distress Cardiovascular- RRR; no murmur or gallop appreciated; no JVD; no pretibial edema Abdomen- + bowel sounds, soft, nontender Extremities- no cyanosis; no calf tenderness; s/p right transmetatarsal amputation with dehisced wound and exposed first metatarsal; moderate tenderness plantar surface of right foot Neuro- alert, oriented Skin- warm & dry . Laboratory Results: Last 24 Hours Test 09/03/17 17:12 09/03/17 20:35 09/04/17 05:31 09/04/17 08:12 Bedside Glucose 105 mg/dl 117 mg/dl 126 mg/dl White Blood Count 3.83 K/uL Red Blood Count 3.06 M/uL Hemoglobin 10.8 g/dL Hematocrit 31.4 % Mean Corpuscular Volume 102.6 fL Mean Corpuscular Hemoglobin 35.3 pg Mean Corpuscular Hemoglobin Concent 34.4 g/dl Platelet Count 242 K/uL Mean Platelet Volume 8.8 fL Neutrophils (%) (Auto) 45.1 % Lymphocytes (%) (Auto) 41.0 % Monocytes (%) (Auto) 11.5 % Eosinophils (%) (Auto) 1.8 % Basophils (%) (Auto) 0.3 % Neutrophils # (Auto) 1.73 K/uL Lymphocytes # (Auto) 1.57 K/uL Monocytes # (Auto) 0.44 K/uL Eosinophils # (Auto) 0.07 K/uL Basophils # (Auto) 0.01 K/uL RDW Standard Deviation 51.6 fL RDW Coefficient of Variation 13.8 % Immature Granulocyte % (Auto) 0.3 % Immature Granulocyte # (Auto) 0.01 K/uL Erythrocyte Sedimentation Rate 10 mm/hr Sodium Level 139 mmol/L Potassium Level 3.7 mmol/L Chloride Level 110 mmol/L Carbon Dioxide Level 23 mmol/L Anion Gap 6.0 mmol/L Blood Urea Nitrogen 15 mg/dl Creatinine 0.86 mg/dl Est Creatinine Clear Calc Drug Dose 73.6 ml/min Estimated GFR () 106.2 Estimated GFR (Non- 91.6 BUN/Creatinine Ratio 17.6 Random Glucose 109 mg/dl Calcium Level 7.7 mg/dl Magnesium Level 1.7 mg/dl Vitamin B12 Level 845 pg/mL Folate 10.44 ng/mL Thyroid Stimulating Hormone (TSH) 1.000 uIu/ml Test 09/04/17 12:27 09/04/17 13:30 Bedside Glucose 115 mg/dl Assessment & Plan SUSPECTED OSTEOMYELITIS Ortho input appreciated. Records from [place] requested. Consult ID & Vascular Surgery. Continue IV antibiotic therapy with vancomycin and piperacillin / tazobactam. PERIPHERAL VASCULAR DISEASE Records from [place] requested regarding prior vascular evaluations / interventions. HIV Patient does not know results of recent viral load or CD4. Old records requested. He was encouraged to have his family bring in his antiviral meds so that they can be continued. DM TYPE 2 Check Hgb A1C. Hold metformin during hospital stay. Continue insulin coverage as needed. VTE PROPHYLAXIS SQ heparin. DISPOSITION To be determined; may need skilled care when medically stable. Primary Care follow-up with [facility]. Will need local follow-up with ID. . Current Inpatient Medications: Current Inpatient Medications Medications (Trade) Dose Ordered Sig/Sea Route Start Time Stop Time Status Last Admin Dose Admin Acetaminophen (Tylenol Tab) 650 mg Q4H PRN PO 09/02/17 23:15 10/02/17 23:14 Polyethylene (Miralax Powder Packet) 17 gm DAILY PRN PO 09/02/17 23:15 10/02/17 23:14 Ondansetron HCl (Zofran Inj) 4 mg Q6H PRN IV 09/02/17 23:15 10/02/17 23:14 Heparin Sodium (Porcine) (Heparin Sq 5000 Unit/0.5ml) 5,000 unit Q12H SQ 09/03/17 09:00 10/03/17 08:59 09/04/17 08:45 5,000 UNIT Acetaminophen/ Codeine Phosphate (Tylenol w/ Codeine #3 Tab) 2 tab Q6H PRN PO 09/02/17 23:15 10/02/17 23:14 Carvedilol (Coreg Tab) 6.25 mg Q12 PO 09/03/17 09:00 10/03/17 08:59 09/04/17 08:42 6.25 MG Clopidogrel Bisulfate (plAVix TAB) 75 mg DAILY PO 09/03/17 09:00 10/03/17 08:59 09/04/17 08:42 75 MG Fluoxetine HCl (Prozac Cap) 20 mg DAILY PO 09/03/17 09:00 10/03/17 08:59 09/04/17 08:43 20 MG Multivitamins (Multivitamin Tab) 1 tab DAILY PO 09/03/17 09:00 10/03/17 08:59 09/04/17 08:42 1 TAB Miscellaneous Information (Order Awaiting Action) 1 ea QS N/A 09/03/17 08:00 10/03/17 07:59 Miscellaneous Information (Order Awaiting Action) 1 ea QS N/A 09/03/17 08:00 10/03/17 07:59 Vancomycin HCl (Consult) 1 ea UD PRN N/A 09/02/17 23:15 10/02/17 23:14 Miscellaneous Information (Consult) 1 ea UD PRN N/A 09/02/17 23:15 10/02/17 23:14 Sodium Chloride 1,000 ml @ 50 mls/hr Q20H IV 09/02/17 23:59 10/02/17 23:58 09/03/17 23:45 50 MLS/HR Insulin Aspart (novoLOG ASPART) SLIDING SCALE G... ACHS SC 09/03/17 07:00 10/03/17 06:59 Piperacillin Sod/ Tazobactam Sod 4.5 gm/Dextrose 120 ml @ 30 mls/hr Q8H IV 09/03/17 08:00 10/15/17 07:59 09/04/17 07:34 30 MLS/HR Vancomycin HCl 750 mg/Sodium Chloride 265 ml @ 125 mls/hr Q12H IV 09/03/17 14:00 10/15/17 13:59 09/04/17 02:09 125 MLS/HR
[2017-09-04 15:06] VITALS: BP 134/78; PULSE 67; TEMP 37.1; O2SAT 99
--- NOTE | 2017-09-04 16:19 | ORTHOPEDIC CONSULTATION ---
DATE OF CONSULTATION: 09/04/2017 HISTORY OF PRESENT ILLNESS: This is a 62-year-old gentleman, seen at the request of Dr. Moffett and Dr. Galeano. The patient was seen due to concerns regarding open wound dehiscence of his right foot and likely osteomyelitis of the first and third metatarsals as diagnosed by radiographs in the Emergency Department. Patient has a history of right great toe ulceration, which he noted several months ago. He has seen at [facility] and had osteomyelitis of the great toe. The surgeon opted for a transmetatarsal amputation. The patient states that there was consideration for below knee amputation; however, by urging the surgeon to perform a TMA, he was attempting for limb salvage. He eventually then moved to [place] to live with his son in July and has been under the care of several providers including the wound care center. He was on Cipro and was seen by home care nursing, and she noted exposed bone of the first distal metatarsal, has recommended to follow up in the ER. He was seen in the ER, evaluated, and admitted to the hospitalist service. PAST MEDICAL HISTORY: Hypertension, type 2 diabetes mellitus, HIV, on chronic antiretrovirals, questionable peripheral vascular disease, and depression. PAST SURGICAL HISTORY: Right foot transmetatarsal amputation and other noncontributory procedures. ALLERGIES: No known drug allergies. MEDICATIONS: Cipro 500 mg p.o. b.i.d., metformin 500 mg p.o. b.i.d., Trizivir 1 tablet as directed, Tylenol with Codeine 2 tablets p.o. q.6 h. p.r.n., Coreg 6.25 mg p.o. b.i.d., Plavix 75 mg p.o. daily, Sustiva 600 mg p.o. at bedtime, Prozac 20 mg p.o. daily, multivitamin 1 tablet p.o. daily. SOCIAL HISTORY: Quit smoking. Denies alcohol or current drug use. He is retired. He lives with his son in [place]. PHYSICAL EXAMINATION: GENERAL: This is a cachectic appearing 62-year-old gentleman lying supine in his hospital room bed. He is alert and oriented x3. His speech is clear and fluent. Affect is appropriate. Responds to questions appropriately. EXTREMITIES: Examination of the foot demonstrates status post transmetatarsal amputation with partial wound dehiscence and exposure of the distal aspect of the first metatarsal. There is approximately from 10 to 7 mm of wound dehiscence from medial to lateral. There is some local eschar and no evidence of new granulation tissue particularly over the first metatarsal. There is no foul odor. Pedal pulses are not palpable; however, the foot is warm. There is scant hair growth on the feet and ankles. IMAGING: Radiographs and ultrasound reviewed demonstrating possible osteomyelitis of the distal first and third metatarsals, status post transmetatarsal amputation with obvious distal wound dehiscence. No obvious DVTs. LABORATORY DATA: Laboratories reviewed, demonstrating white count initially of 5.86, now down to 3.83, hemoglobin 13.3, now down to 10.8, hematocrit initially 38.3, now down to 31.4, platelet count initially 279, down to 242. Sedimentation rate is 10. BUN 15, creatinine 0.86. Initial random glucose is 117. IMPRESSION: 1. Right foot wound dehiscence, status post transmetatarsal amputation, 06/2017, [facility]. 2. Possible osteomyelitis, first and third distal metatarsals. 3. Likely peripheral vascular disease. 4. HIV positive. 5. Diabetes mellitus type 2. RECOMMENDATIONS: At this point, would recommend vascular evaluation and arterial and venous Dopplers if not already performed at [facility], would recommend assessing for those studies and have them made part of the medical record if they were performed. The patient is unclear about the types of studies done at [facility]. I would not need to repeat them here at [facility]. Based upon vascular surgery evaluation for recommendations of a possible revision, transmetatarsal amputation versus below knee amputation would be appreciated. Will follow with you. Continue IV antibiotics. Maintain nonweightbearing, right lower extremity with the exception of minor pressure on the right heel for transfers. Local wound care with a soft dry dressing daily. Thank you for the opportunity to consult in the care of this patient.
[2017-09-04] MEDS: MAGNESIUM CHLORIDE 64MG DELAYED REL TAB PO SCH (21:28)
[2017-09-04 23:36] VITALS: BP 125/73; PULSE 73; TEMP 37.3; O2SAT 97
[2017-09-05] MEDS: PIPERACILL/TAZOBAC IV 4.5 GM in D5W 100 ML IV SCH ×4 (00:04→23:55)
[2017-09-05] MEDS: SODIUM CHLORIDE 0.9% 1000ML 1,000 ML IV SCH ×2 (00:04→21:35)
[2017-09-05] MEDS: VANCOMYCIN IV 750 MG in SODIUM CHLORIDE 0.9% 250ML 250 ML IV SCH ×3 (02:21→21:36)
[2017-09-05 07:25] VITALS: BP 162/75; PULSE 58; TEMP 37.1; O2SAT 98
[2017-09-05] MEDS: INSULIN ASPART 100 UNITS/ML 3 ML PEN SC SCH ×4 (08:41→21:00)
[2017-09-05] MEDS: HEPARIN SOD 5000 UNIT/0.5 ML CARP SQ SCH ×2 (08:47→21:54)
[2017-09-05] MEDS: CLOPIDOGREL BISULFATE 75 MG TAB PO SCH (08:48)
[2017-09-05] MEDS: MULTIVITAMIN TAB PO SCH (08:48)
[2017-09-05] MEDS: MAGNESIUM CHLORIDE 64MG DELAYED REL TAB PO SCH ×2 (08:49→21:35)
[2017-09-05] MEDS: CARVEDILOL 6.25 MG TAB PO SCH ×2 (08:49→21:34)
[2017-09-05] MEDS: TRIZIVIR PO SCH ×2 (08:49→21:34)
[2017-09-05] MEDS: FLUOXETINE HCL 20 MG CAP PO SCH (08:49)
--- NOTE | 2017-09-05 10:07 | Surgery Consultation ---
Consultation Date of Service Sep 05, 2017. Chief Complaint Open right TMA History of Present Illness The patient is a 62 year old male with past medical history of hypertension, diabetes, HIV positive, on antivirals. He had no history of claudication. He presented to [place] with a foot infection. He underwent stenting of his right superficial femoral artery as well as a transmetatarsal amputation. He then moved to [place]. He presented to the hospital here with an open transmetatarsal amputation site of the right foot. We do not have any previous records from his intervention at [place]. He did smoke in the past and stopped during his [place] hospitalization. Vitals Vital Signs Past 12 Hours Date Time Temp Pulse Resp B/P (MAP) Pulse Ox O2 Delivery O2 Flow Rate FiO2 09/05/17 07:25 37.1 58 16 162/75 (104) 98 Room Air 09/05/17 00:10 Room Air 09/04/17 23:36 37.3 73 14 125/73 (90) 97 Room Air Allergies Coded Allergies: No Known Allergies (Unverified , 07/28/17) Home Medications Scheduled Abacavir Ubfmwsk-Naibnvwcci-Oe (Trizivir), 1 TAB PO UD Carvedilol (Coreg), 6.25 MG PO Q12 Ciprofloxacin Hcl (Cipro), 500 MG PO BID Clopidogrel (Plavix), 75 MG PO DAILY Efavirenz (Sustiva), 600 MG PO HS Fluoxetine (Prozac), 20 MG PO DAILY Metformin Hcl (Glucophage), 500 MG PO BID Multivitamin (Multivitamin), 1 TAB PO DAILY Scheduled PRN Acetaminophen/Codeine (Tylenol W/Codeine #3), 2 TAB PO Q6H PRN for Pain Problem List Medical Problems: (1) Amputated toe (2) Diabetes (3) HIV (human immunodeficiency virus infection) (4) Osteomyelitis Surgical / Medical History Hx Cardiac Surgery: No Hx Abdominal Surgery: No Hx Cancer Surgery: No Hx Thoracic Surgery: No Hx Orthopedic: Yes (right foot, toes amputated) Hx Urinary Tract Surgery: No HX Other Surgery: No Family History Cancer Diabetes mellitus Hypertension Social History Smoking Status: Former Smoker Hx Tobacco Use In Past Year?: No Hx Alcohol Use - Type & Amnt: No Hx Substance Use -Type & Amnt: No Review of Systems Constitutional: No chills, No diaphoresis, No fever, No malaise, No weakness, No weight gain, No weight loss, No sweats, No fatigue, No problem reported Respiratory: No cough, No cyanosis, No ROBLERO, No hemoptysis, No orthopnea, No PND , No short of breath, No sputum production, No stridor, No wheezing, No dyspnea , No problem reported Cardiovascular: No chest pain, No chest tightness, No chest pressure, No palpitations, No syncope, No diaphoresis, No edema, No intermittent claudication , No orthopnea, No cyanosis, No mumur, No lightheadedness, No paroxysmal nocturnal dyspnea, No problem reported Gastrointestinal: No abdominal pain, No constipation, No diarrhea, No nausea, No vomiting, No anorexia, No appetite changes, No belching, No flatulence, No food intolerance, No hematemesis, No hemorrhoids, No hematochezia, No stool changes, No heartburn, No indigestion, No dysphagia, No rectal bleeding, No problem reported Musculoskeletal: No back pain, No gout, No joint pain, No joint swelling, No muscle pain, No muscle stiffness, No muscle weakness, No neck pain, No problem reported Neurologic: No dizziness, No weakness, No headache, No lethargy, No numbness, No paresthesia, No pre-existing deficit, No seizures, No tics, No tingling, No tremors, No vertigo, No memory loss, No LOC, No problem reported Psychiatric: No anxiety, No alcohol abuse, No auditory hallucinations, No depression, No drug abuse, No homicidal ideation, No mood changes, No suicidal ideation, No visual hallucinations, No problem reported Physical Exam Constitutional: General Apperance: cachectic Level of Distress: NAD Ambulation: limited ambulation Psychiatric: Mental Status: active & alert, normal mood, normal affect Orientation: oriented except where noted, to time, to place, to person Memory: recent memory normal, remote memory normal Neck: supple Lungs: Auscultation: breath sounds normal Cardiovascular: Heart Auscultation: RRR Peripheral Pulses: Radial Pulse: normal on the left, normal on the right Femoral Pulse: normal on the left, normal on the right Popliteal Pulse: decreased on the right, absent on the left Posterior Tibialis Pulse: absent on the left, absent on the right Dorsalis Pedis Pulse: absent on the left, absent on the right Abdomen: Inspection & Palpation: soft Musculoskeletal: normal Extremities: Upper Right: no cyanosis, no edema, no varicosities, no palpable cord, no clubbing, no ulcers, no mottling Upper Left: no cyanosis, no edema, no palpable cord, no clubbing, no ulcers , no mottling Lower Right: pertinent finding (open tma site) Lower Left: no cyanosis, no edema, no varicosities, no palpable cord, no clubbing, no ulcers, no mottling Neurologic: Cranial Nerves: grossly intact Sensation: grossly intact Assessment and Plan Impression: Open right TMA site. 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 Plan: Arterial noninvasives done here showed severe decrease ankle arm indices in both feet. He does have infrapopliteal artery occlusive disease of the right lower extremity. The stent however is patent. Waveforms below the knee are dampened. At this point being we do not have films from [place] we recommend repeat arteriography and possible intervention to see if there is any further increase in blood flow we could accomplish to the foot to try and salvage as much of the foot as possible. I have discussed the risks options and benefits of the procedure with the patient. The patient understands the risks options and benefits and agrees to the procedure. This will be done on Tuesday. Thank you very much for letting us participate in the care of this patient
[2017-09-05] MEDS ORDERED: NURSING VERBAL MED ORDER ONE (12:45)
[2017-09-05] MEDS ORDERED: VANCOMYCIN TROUGH ONE (13:30)
[2017-09-05 13:33] LABS: HEMATOCRIT 31.6 % (42-52); HEMOGLOBIN 11.1 g/dL (14.0-18.0); MEAN CELL VOLUME 101.6 fL (80-100); MEAN CORPUSCULAR HEMOGLOBIN 35.7 pg (25-34); MEAN CORPUSCULAR HGB CONC 35.1 g/dl (32-36); MEAN PLATELET VOLUME 8.7 fL (7.4-10.4); PLATELET COUNT 240 K/uL (130-400); RED CELL DISTRIBUTION WIDTH CV 13.9 % (11.5-14.5); RED CELL DISTRIBUTION WIDTH SD 51.8 fL (36.4-46.3); WHITE BLOOD COUNT 4.03 K/uL (4.8-10.8)
[2017-09-05 13:57] LABS: CREATININE 0.77 mg/dl (0.60-1.40); POTASSIUM 3.7 mmol/L (3.5-5.1)
--- NOTE | 2017-09-05 14:32 | Pharmacy Progress Note ---
Pharmacy Antibiotic Prog Note Date of Service Sep 05, 2017. Subjective The patient is currently receiving vancomycin 750 mg IV every 12 hours. The patient is currently on day # 4 of IV therapy. Objective Height (Feet): 5 Height (Inches): 7.00 Weight (Kilograms): 60.000 Levels: Item Value Date Time Vancomycin Level Trough 10.1 mcg/ml 09/05/17 1314 Lab Results (24hrs): Test 09/04/17 20:37 09/05/17 08:18 09/05/17 13:14 Bedside Glucose 128 mg/dl (70-99) 129 mg/dl (70-99) White Blood Count 4.03 K/uL (4.8-10.8) Red Blood Count 3.11 M/uL (4.7-6.1) Hemoglobin 11.1 g/dL (14.0-18.0) Hematocrit 31.6 % (42-52) Mean Corpuscular Volume 101.6 fL (80-100) Mean Corpuscular Hemoglobin 35.7 pg (25-34) Mean Corpuscular Hemoglobin Concent 35.1 g/dl (32-36) RDW Standard Deviation 51.8 fL (36.4-46.3) RDW Coefficient of Variation 13.9 % (11.5-14.5) Platelet Count 240 K/uL (130-400) Mean Platelet Volume 8.7 fL (7.4-10.4) Sodium Level 142 mmol/L (136-145) Potassium Level 3.7 mmol/L (3.5-5.1) Chloride Level 111 mmol/L (98-107) Carbon Dioxide Level 25 mmol/L (21-32) Anion Gap 6.0 mmol/L (3-11) Blood Urea Nitrogen 15 mg/dl (7-18) Creatinine 0.77 mg/dl (0.60-1.40) Est Creatinine Clear Calc Drug Dose 82.3 ml/min Estimated GFR () 111.2 Estimated GFR (Non- 95.9 BUN/Creatinine Ratio 19.1 (10-20) Random Glucose 96 mg/dl (70-99) Calcium Level 8.0 mg/dl (8.5-10.1) Vancomycin Level Trough 10.1 mcg/ml (SEE COMMENT) Micro Results: Item Value Date Time Blood Culture - Preliminary Resulted 09/02/17 2145 Blood NO GROWTH TO DATE. Blood Culture - Preliminary Resulted 09/02/172133 Blood NO GROWTH TO DATE. Assessment & Plan Patient currently on vancomycin and zosyn for osteomyelitis s/p right transmetatarsal amputation, with open wound. Blood cultures x 2 are pending. ID is following the patient. Ortho and vascular surgery consulted. Per vascular surgery, plan to go to OR on Tuesday for possible intervention. Vancomycin: * Trough level this afternoon came back subtherapeutic at ~10 mcg/ml (goal 15- 20 mcg/ml for osteomyelitis, ideally closer to 20 mcg/ml is the goal) * Will adjust vancomycin to 750 mg iv q 8 hrs to target a higher trough * Estimated kinetics based upon level today: t1/2~9 hrs, ke~0.08 hr-1 - Scr stable (CrCl ~82 ml/min) * Will plan to obtain a trough prior to the 0600 dose on 09/07 to ensure therapeutic Zosyn: * 4.5 gm iv q 8 hrs - appropriate for CrCl >20 ml/min (higher dosing due to more severe infxn noted) Pharmacy will continue to follow and will adjust dose/frequency as necessary. Thank you
[2017-09-05 15:11] VITALS: BP 136/73; PULSE 64; TEMP 36.8; O2SAT 100
--- NOTE | 2017-09-05 16:52 | Infectious Disease Progress Nt ---
Progress Note Date of Service Sep 05, 2017. Subjective Pt evaluation today including: conversation w/ patient, physical exam, chart review, lab review, review of studies, conversation w/ technical healthcare consultant, review of inpatient medication list Patient states pain in his foot is still present but improved since admission. Vascular surgery consult noted, plans for further vascular studies on Tuesday. Has been afebrile, tolerating antibiotic without apparent difficulty. Blood cultures remain negative. All Other Systems: Reviewed and Negative Medications Current Inpatient Medications Medications (Trade) Dose Ordered Sig/Sea Route Start Time Stop Time Status Last Admin Dose Admin Acetaminophen (Tylenol Tab) 650 mg Q4H PRN PO 09/02/17 23:15 10/02/17 23:14 09/05/17 00:13 650 MG Polyethylene (Miralax Powder Packet) 17 gm DAILY PRN PO 09/02/17 23:15 10/02/17 23:14 Ondansetron HCl (Zofran Inj) 4 mg Q6H PRN IV 09/02/17 23:15 10/02/17 23:14 Heparin Sodium (Porcine) (Heparin Sq 5000 Unit/0.5ml) 5,000 unit Q12H SQ 09/03/17 09:00 10/03/17 08:59 09/04/17 21:22 5,000 UNIT Acetaminophen/ Codeine Phosphate (Tylenol w/ Codeine #3 Tab) 2 tab Q6H PRN PO 09/02/17 23:15 10/02/17 23:14 Carvedilol (Coreg Tab) 6.25 mg Q12 PO 09/03/17 09:00 10/03/17 08:59 09/05/17 08:49 6.25 MG Clopidogrel Bisulfate (plAVix TAB) 75 mg DAILY PO 09/03/17 09:00 10/03/17 08:59 09/05/17 08:48 75 MG Fluoxetine HCl (Prozac Cap) 20 mg DAILY PO 09/03/17 09:00 10/03/17 08:59 09/05/17 08:49 20 MG Multivitamins (Multivitamin Tab) 1 tab DAILY PO 09/03/17 09:00 10/03/17 08:59 09/05/17 08:48 1 TAB Miscellaneous Information (Order Awaiting Action) 1 ea QS N/A 09/03/17 08:00 10/03/17 07:59 Vancomycin HCl (Consult) 1 ea UD PRN N/A 09/02/17 23:15 10/02/17 23:14 Miscellaneous Information (Consult) 1 ea UD PRN N/A 09/02/17 23:15 10/02/17 23:14 Sodium Chloride 1,000 ml @ 50 mls/hr Q20H IV 09/02/17 23:59 10/02/17 23:58 09/05/17 00:04 50 MLS/HR Insulin Aspart (novoLOG ASPART) SLIDING SCALE G... ACHS SC 09/03/17 07:00 10/03/17 06:59 Piperacillin Sod/ Tazobactam Sod 4.5 gm/Dextrose 120 ml @ 30 mls/hr Q8H IV 09/03/17 08:00 10/15/17 07:59 09/05/17 16:31 30 MLS/HR Vancomycin HCl 750 mg/Sodium Chloride 265 ml @ 125 mls/hr Q12H IV 09/03/17 14:00 09/05/17 17:00 09/05/17 14:05 125 MLS/HR Magnesium Chloride (Slow-Mag Tab) 64 mg BID PO 09/04/17 21:00 10/04/17 20:59 09/05/17 08:49 64 MG Non-Formulary Medication (Non-Formulary Patient'S Own Med) 1 ea Q12 PO 09/05/17 09:00 10/05/17 08:59 09/05/17 08:49 1 EA Vancomycin HCl 750 mg/Sodium Chloride 265 ml @ 125 mls/hr Q8H IV 09/05/17 22:00 10/17/17 21:59 Objective Vital Signs Date Time Temp Pulse Resp B/P (MAP) Pulse Ox O2 Delivery O2 Flow Rate FiO2 09/05/17 15:11 36.8 64 18 136/73 (94) 100 Room Air 09/05/17 07:30 Room Air 09/05/17 07:25 37.1 58 16 162/75 (104) 98 Room Air 09/05/17 00:10 Room Air 09/04/17 23:36 37.3 73 14 125/73 (90) 97 Room Air Laboratory Results Last 24 Hours Test 09/04/17 17:03 09/04/17 20:37 09/05/17 08:18 09/05/17 12:18 Bedside Glucose 117 mg/dl 128 mg/dl 129 mg/dl 141 mg/dl Test 09/05/17 13:14 White Blood Count 4.03 K/uL Red Blood Count 3.11 M/uL Hemoglobin 11.1 g/dL Hematocrit 31.6 % Mean Corpuscular Volume 101.6 fL Mean Corpuscular Hemoglobin 35.7 pg Mean Corpuscular Hemoglobin Concent 35.1 g/dl RDW Standard Deviation 51.8 fL RDW Coefficient of Variation 13.9 % Platelet Count 240 K/uL Mean Platelet Volume 8.7 fL Sodium Level 142 mmol/L Potassium Level 3.7 mmol/L Chloride Level 111 mmol/L Carbon Dioxide Level 25 mmol/L Anion Gap 6.0 mmol/L Blood Urea Nitrogen 15 mg/dl Creatinine 0.77 mg/dl Est Creatinine Clear Calc Drug Dose 82.3 ml/min Estimated GFR () 111.2 Estimated GFR (Non- 95.9 BUN/Creatinine Ratio 19.1 Random Glucose 96 mg/dl Calcium Level 8.0 mg/dl Vancomycin Level Trough 10.1 mcg/ml ADDENDUM Review of the examination again confirms the presence of a stent within the right superficial femoral artery. It is patent. Although waveforms are bi/ triphasic, overall flow characteristics are somewhat diminished. This indicates considerable arterial occlusive change inferior to the knees bilaterally. There may be a small focal area of occlusion with a dampened reconstitution involving the popliteal artery on the right. These findings correlate well with the MICAELA indices. IMPRESSION:. Review of the study indicates significant arterial occlusive change inferior to the knees bilaterally, with potential small focal occlusion right popliteal vessel with immediate reconstitution. Dampened waveforms and flow bilaterally. Electronically signed by: Wilian Hernandez M.D. 09/05/2017 9:47 AM Dictated Date/Time: 09/05/2017 9:41 AM Assessment and Plan 62-year-old diabetic male with HIV infection status post right transmetatarsal amputation now with open wound with exposed bone and likely osteomyelitis. Pending further cultures, vancomycin and Zosyn should provide adequate coverage. For angiography. Will follow.
--- NOTE | 2017-09-05 21:18 | Progress Note ---
Medicine Progress Note Date & Time of Visit: Sep 05, 2017 at 14:40 . Subjective CC: Follow-up visit for osteomyelitis right foot and other problems. HPI: No fever. Intermittent foot pain, but usually comfortable. ROS: General- no fever, no chills Resp- no cough; no shortness of breath Cardiac- no chest pain, no edema GI- no nausea, no vomiting, no diarrhea, no constipation - no dysuria, no difficulty voiding . Objective Last 8 Hrs Date Time Temp Pulse Resp B/P (MAP) Pulse Ox O2 Delivery O2 Flow Rate FiO2 09/05/17 16:00 Room Air 09/05/17 15:11 36.8 64 18 136/73 (94) 100 Room Air Physical Exam: General- lying in bed; no distress Lungs- clear to auscultation; no respiratory distress Cardiovascular- RRR; no murmur or gallop appreciated; no JVD; no pretibial edema Abdomen- + bowel sounds, soft, nontender Extremities- no cyanosis; no calf tenderness; right foot bandaged Neuro- alert, oriented Skin- warm & dry . Laboratory Results: Last 24 Hours Test 09/05/17 08:18 09/05/17 12:18 09/05/17 13:14 09/05/17 17:06 Bedside Glucose 129 mg/dl 141 mg/dl 130 mg/dl White Blood Count 4.03 K/uL Red Blood Count 3.11 M/uL Hemoglobin 11.1 g/dL Hematocrit 31.6 % Mean Corpuscular Volume 101.6 fL Mean Corpuscular Hemoglobin 35.7 pg Mean Corpuscular Hemoglobin Concent 35.1 g/dl RDW Standard Deviation 51.8 fL RDW Coefficient of Variation 13.9 % Platelet Count 240 K/uL Mean Platelet Volume 8.7 fL Sodium Level 142 mmol/L Potassium Level 3.7 mmol/L Chloride Level 111 mmol/L Carbon Dioxide Level 25 mmol/L Anion Gap 6.0 mmol/L Blood Urea Nitrogen 15 mg/dl Creatinine 0.77 mg/dl Est Creatinine Clear Calc Drug Dose 82.3 ml/min Estimated GFR () 111.2 Estimated GFR (Non- 95.9 BUN/Creatinine Ratio 19.1 Random Glucose 96 mg/dl Calcium Level 8.0 mg/dl Vancomycin Level Trough 10.1 mcg/ml Assessment & Plan SUSPECTED OSTEOMYELITIS Ortho input appreciated. Records from [place] requested. Consult ID & Vascular Surgery. Continue IV antibiotic therapy with vancomycin and piperacillin / tazobactam. PERIPHERAL VASCULAR DISEASE Records from [place] requested regarding prior vascular evaluations / interventions. Arterial duplex RLE: IMPRESSION: Normal study. 1. Stent within the right superficial femoral artery which is patent. 2. Moderate to moderate a significant small vessel arterial occlusive change bilaterally. 3. Small focal area of stenosis and occlusion Mid distal left superficial femoral artery with moderate reconstitution. HIV Patient does not know results of recent viral load or CD4. Old records requested. Continue Trizivir. DM TYPE 2 Check Hgb A1C. Hold metformin during hospital stay. FBS today = 129. Continue insulin coverage as needed. VTE PROPHYLAXIS SQ heparin. DISPOSITION To be determined; may need skilled care when medically stable. [facility] follow-up with [facility]. Will need local follow-up with ID. . Current Inpatient Medications: Current Inpatient Medications Medications (Trade) Dose Ordered Sig/Sea Route Start Time Stop Time Status Last Admin Dose Admin Acetaminophen (Tylenol Tab) 650 mg Q4H PRN PO 09/02/17 23:15 10/02/17 23:14 09/05/17 00:13 650 MG Polyethylene (Miralax Powder Packet) 17 gm DAILY PRN PO 09/02/17 23:15 10/02/17 23:14 Ondansetron HCl (Zofran Inj) 4 mg Q6H PRN IV 09/02/17 23:15 10/02/17 23:14 Heparin Sodium (Porcine) (Heparin Sq 5000 Unit/0.5ml) 5,000 unit Q12H SQ 09/03/17 09:00 10/03/17 08:59 09/04/17 21:22 5,000 UNIT Acetaminophen/ Codeine Phosphate (Tylenol w/ Codeine #3 Tab) 2 tab Q6H PRN PO 09/02/17 23:15 10/02/17 23:14 Carvedilol (Coreg Tab) 6.25 mg Q12 PO 09/03/17 09:00 10/03/17 08:59 09/05/17 08:49 6.25 MG Clopidogrel Bisulfate (plAVix TAB) 75 mg DAILY PO 09/03/17 09:00 10/03/17 08:59 09/05/17 08:48 75 MG Fluoxetine HCl (Prozac Cap) 20 mg DAILY PO 09/03/17 09:00 10/03/17 08:59 09/05/17 08:49 20 MG Multivitamins (Multivitamin Tab) 1 tab DAILY PO 09/03/17 09:00 10/03/17 08:59 09/05/17 08:48 1 TAB Miscellaneous Information (Order Awaiting Action) 1 ea QS N/A 09/03/17 08:00 10/03/17 07:59 Vancomycin HCl (Consult) 1 ea UD PRN N/A 09/02/17 23:15 10/02/17 23:14 Miscellaneous Information (Consult) 1 ea UD PRN N/A 09/02/17 23:15 10/02/17 23:14 Sodium Chloride 1,000 ml @ 50 mls/hr Q20H IV 09/02/17 23:59 10/02/17 23:58 09/05/17 00:04 50 MLS/HR Insulin Aspart (novoLOG ASPART) SLIDING SCALE G... ACHS SC 09/03/17 07:00 10/03/17 06:59 Piperacillin Sod/ Tazobactam Sod 4.5 gm/Dextrose 120 ml @ 30 mls/hr Q8H IV 09/03/17 08:00 10/15/17 07:59 09/05/17 16:31 30 MLS/HR Magnesium Chloride (Slow-Mag Tab) 64 mg BID PO 09/04/17 21:00 10/04/17 20:59 09/05/17 08:49 64 MG Non-Formulary Medication (Non-Formulary Patient'S Own Med) 1 ea Q12 PO 09/05/17 09:00 10/05/17 08:59 09/05/17 08:49 1 EA Vancomycin HCl 750 mg/Sodium Chloride 265 ml @ 125 mls/hr Q8H IV 09/05/17 22:00 10/17/17 21:59
[2017-09-05 23:00] VITALS: BP 107/77; PULSE 54; TEMP 36.8; O2SAT 98
[2017-09-06] VITALS (7 sets, daily range): BP systolic 137–143; BP diastolic 73–81; PULSE 55–63; TEMP 36.6–36.9; O2SAT 96–99
[2017-09-06] MEDS: VANCOMYCIN IV 750 MG in SODIUM CHLORIDE 0.9% 250ML 250 ML IV SCH ×3 (05:58→21:40)
[2017-09-06 07:05] LABS: CALCIUM 8.4 mg/dl (8.5-10.1); CREATININE 0.8 mg/dl (0.60-1.40); POTASSIUM 3.8 mmol/L (3.5-5.1)
[2017-09-06 07:08] LABS: HEMOGLOBIN A1C 6.2 % (4.5-5.6)
[2017-09-06] MEDS: PIPERACILL/TAZOBAC IV 4.5 GM in D5W 100 ML IV SCH ×3 (08:18→23:56)
[2017-09-06] MEDS: MAGNESIUM CHLORIDE 64MG DELAYED REL TAB PO SCH ×2 (09:05→21:37)
[2017-09-06] MEDS: FLUOXETINE HCL 20 MG CAP PO SCH (09:05)
[2017-09-06] MEDS: CLOPIDOGREL BISULFATE 75 MG TAB PO SCH (09:05)
[2017-09-06] MEDS: HEPARIN SOD 5000 UNIT/0.5 ML CARP SQ SCH ×2 (09:07→21:40)
[2017-09-06] MEDS: INSULIN ASPART 100 UNITS/ML 3 ML PEN SC SCH ×4 (09:09→21:00)
[2017-09-06] MEDS: MULTIVITAMIN TAB PO SCH (09:10)
[2017-09-06] MEDS: CARVEDILOL 6.25 MG TAB PO SCH ×2 (09:11→21:37)
[2017-09-06] MEDS: TRIZIVIR PO SCH ×2 (09:12→21:37)
[2017-09-06] MEDS: ACETAMINOPHEN/CODEINE 300/30MG TAB PO PRN ×2 (15:20→23:25)
[2017-09-06] MEDS: SODIUM CHLORIDE 0.9% 1000ML 1,000 ML IV SCH (17:07)
--- NOTE | 2017-09-06 19:59 | Progress Note ---
Medicine Progress Note Date & Time of Visit: Sep 06, 2017 at 19:30 . Subjective CC: Follow-up visit for osteomyelitis right foot and other problems. HPI: No new problems. No fever. Foot pain well controlled. ROS: General- no fever, no chills Resp- no cough; no shortness of breath Cardiac- no chest pain, no edema GI- no nausea, no vomiting, no diarrhea, no constipation - no dysuria . Objective Last 8 Hrs Date Time Temp Pulse Resp B/P (MAP) Pulse Ox O2 Delivery O2 Flow Rate FiO2 09/06/17 15:02 36.9 59 16 138/81 (100) 99 Room Air Physical Exam: General- lying in bed; no distress Lungs- clear to auscultation; no respiratory distress Cardiovascular- RRR; no murmur or gallop appreciated; no JVD; no pretibial edema Abdomen- + bowel sounds, soft, nontender Extremities- no cyanosis; no calf tenderness; right foot bandaged Neuro- alert, oriented Skin- warm & dry . Laboratory Results: Last 24 Hours Test 09/05/17 20:38 09/06/17 06:19 09/06/17 08:23 09/06/17 12:03 Bedside Glucose 138 mg/dl 144 mg/dl 129 mg/dl Sodium Level 140 mmol/L Potassium Level 3.8 mmol/L Chloride Level 110 mmol/L Carbon Dioxide Level 25 mmol/L Anion Gap 6.0 mmol/L Blood Urea Nitrogen 13 mg/dl Creatinine 0.80 mg/dl Est Creatinine Clear Calc Drug Dose 79.2 ml/min Estimated GFR () 109.4 Estimated GFR (Non- 94.4 BUN/Creatinine Ratio 15.8 Random Glucose 121 mg/dl Estimated Average Glucose 131 mg/dl Hemoglobin A1c 6.2 % Calcium Level 8.4 mg/dl Test 09/06/17 17:10 Bedside Glucose 138 mg/dl Assessment & Plan SUSPECTED OSTEOMYELITIS Ortho input appreciated. ID & Vascular Surgery consulted. Continue IV antibiotic therapy with vancomycin and piperacillin / tazobactam. PERIPHERAL VASCULAR DISEASE Records from [facility] requested regarding prior vascular evaluations / interventions. Arterial duplex RLE: IMPRESSION: Normal study. 1. Stent within the right superficial femoral artery which is patent. 2. Moderate to moderate a significant small vessel arterial occlusive change bilaterally. 3. Small focal area of stenosis and occlusion Mid distal left superficial femoral artery with moderate reconstitution. HIV Patient does not know results of recent viral load or CD4. Old records requested. Continue Trizivir. DM TYPE 2 Hgb A1C = 6.2. Hold metformin during hospital stay. FBS today = 144. Continue insulin coverage as needed. VTE PROPHYLAXIS SQ heparin. DISPOSITION To be determined; may need skilled care when medically stable. Primary Care follow-up with [facility]. Will need local follow-up with ID. . Current Inpatient Medications: Current Inpatient Medications Medications (Trade) Dose Ordered Sig/Sea Route Start Time Stop Time Status Last Admin Dose Admin Acetaminophen (Tylenol Tab) 650 mg Q4H PRN PO 09/02/17 23:15 10/02/17 23:14 09/05/17 00:13 650 MG Polyethylene (Miralax Powder Packet) 17 gm DAILY PRN PO 09/02/17 23:15 10/02/17 23:14 Ondansetron HCl (Zofran Inj) 4 mg Q6H PRN IV 09/02/17 23:15 10/02/17 23:14 Heparin Sodium (Porcine) (Heparin Sq 5000 Unit/0.5ml) 5,000 unit Q12H SQ 09/03/17 09:00 10/03/17 08:59 09/06/17 09:07 5,000 UNIT Acetaminophen/ Codeine Phosphate (Tylenol w/ Codeine #3 Tab) 2 tab Q6H PRN PO 09/02/17 23:15 10/02/17 23:14 09/06/17 15:20 1 TAB Carvedilol (Coreg Tab) 6.25 mg Q12 PO 09/03/17 09:00 10/03/17 08:59 09/06/17 09:11 6.25 MG Clopidogrel Bisulfate (plAVix TAB) 75 mg DAILY PO 09/03/17 09:00 10/03/17 08:59 09/06/17 09:05 75 MG Fluoxetine HCl (Prozac Cap) 20 mg DAILY PO 09/03/17 09:00 10/03/17 08:59 09/06/17 09:05 20 MG Multivitamins (Multivitamin Tab) 1 tab DAILY PO 09/03/17 09:00 10/03/17 08:59 09/06/17 09:10 1 TAB Miscellaneous Information (Order Awaiting Action) 1 ea QS N/A 09/03/17 08:00 10/03/17 07:59 Vancomycin HCl (Consult) 1 ea UD PRN N/A 09/02/17 23:15 10/02/17 23:14 Miscellaneous Information (Consult) 1 ea UD PRN N/A 09/02/17 23:15 10/02/17 23:14 Sodium Chloride 1,000 ml @ 50 mls/hr Q20H IV 09/02/17 23:59 10/02/17 23:58 09/06/17 17:07 50 MLS/HR Insulin Aspart (novoLOG ASPART) SLIDING SCALE G... ACHS SC 09/03/17 07:00 10/03/17 06:59 09/06/17 09:09 1 UNITS Piperacillin Sod/ Tazobactam Sod 4.5 gm/Dextrose 120 ml @ 30 mls/hr Q8H IV 09/03/17 08:00 10/15/17 07:59 09/06/17 16:06 30 MLS/HR Magnesium Chloride (Slow-Mag Tab) 64 mg BID PO 09/04/17 21:00 10/04/17 20:59 09/06/17 09:05 64 MG Non-Formulary Medication (Non-Formulary Patient'S Own Med) 1 ea Q12 PO 09/05/17 09:00 10/05/17 08:59 09/06/17 09:12 1 EA Vancomycin HCl 750 mg/Sodium Chloride 265 ml @ 125 mls/hr Q8H IV 09/05/17 22:00 10/17/17 21:59 09/06/17 13:29 125 MLS/HR
[2017-09-07] VITALS (14 sets, daily range): BP systolic 134–185; BP diastolic 64–86; PULSE 51–60; TEMP 36.4–37; O2SAT 95–100
[2017-09-07] MEDS ORDERED: VANCOMYCIN TROUGH ONE (05:30)
[2017-09-07] MEDS: VANCOMYCIN IV 750 MG in SODIUM CHLORIDE 0.9% 250ML 250 ML IV SCH ×3 (05:43→22:01)
[2017-09-07 06:04] LABS: HEMATOCRIT 30.1 % (42-52); HEMOGLOBIN 10.8 g/dL (14.0-18.0); MEAN CELL VOLUME 103.4 fL (80-100); MEAN CORPUSCULAR HEMOGLOBIN 37.1 pg (25-34); MEAN CORPUSCULAR HGB CONC 35.9 g/dl (32-36); PLATELET COUNT 264 K/uL (130-400); RED CELL DISTRIBUTION WIDTH CV 14.3 % (11.5-14.5); RED CELL DISTRIBUTION WIDTH SD 54.4 fL (36.4-46.3); WHITE BLOOD COUNT 4.77 K/uL (4.8-10.8)
[2017-09-07 07:16] LABS: CALCIUM 7.5 mg/dl (8.5-10.1); CREATININE 0.75 mg/dl (0.60-1.40); POTASSIUM 3.9 mmol/L (3.5-5.1)
[2017-09-07] MEDS: PIPERACILL/TAZOBAC IV 4.5 GM in D5W 100 ML IV SCH ×2 (07:45→15:58)
--- NOTE | 2017-09-07 08:46 | Progress Note ---
Progress Note Date of Service Sep 07, 2017. Progress Note Patient for arteriography with possible intervention of the right lower extremity. I have discussed the risks options and benefits of the procedure with the patient. The patient understands the risks options and benefits and agrees to the procedure. I have examined the patient, reviewed the History & Physical and in the interval since the performance of the History & Physical I have noted the following changes of clinical significance: No changes noted
[2017-09-07] MEDS: INSULIN ASPART 100 UNITS/ML 3 ML PEN SC SCH ×4 (08:47→21:12)
[2017-09-07] MEDS: CARVEDILOL 6.25 MG TAB PO SCH ×2 (08:53→21:00)
[2017-09-07] MEDS: TRIZIVIR PO SCH ×2 (08:54→21:09)
[2017-09-07] MEDS: MULTIVITAMIN TAB PO SCH (08:54)
[2017-09-07] MEDS: HEPARIN SOD 5000 UNIT/0.5 ML CARP SQ SCH (09:00)
[2017-09-07] MEDS: MAGNESIUM CHLORIDE 64MG DELAYED REL TAB PO SCH ×2 (09:00→21:14)
--- NOTE | 2017-09-07 09:53 | Pharmacy Progress Note ---
Pharmacy Abx Dose Short Note Date of Service Sep 07, 2017. Assessment & Plan Assessment 62 year old male receiving Vancomycin and Zosyn for treatment of osteomyelitis Day # 6 of antimicrobial therapy. Plan Vancomycin * Trough level of 16.5 mcg/mL is therapeutic * Continue dose of 750 mg IV every 8 hours * Goal trough level for osteomyelitis : 15 to 20 mcg/mL * Will draw additional trough in 2-3 days unless there is a significant change in the patient's renal funcion. Pharmacy will continue to follow and will adjust dose/frequency as necessary. Thank you.
[2017-09-07] MEDS: CLOPIDOGREL BISULFATE 75 MG TAB PO SCH (10:15)
--- NOTE | 2017-09-07 11:31 | Pre Sedation Assessment ---
Pre Sedation Assessment General Date of Sedation: Sep 07, 2017. Vital Signs Past 12 Hours Date Time Temp Pulse Resp B/P (MAP) Pulse Ox O2 Delivery O2 Flow Rate FiO2 09/07/17 11:02 36.7 52 16 174/85 (114) 100 Room Air 09/07/17 08:52 51 135/81 (99) 100 Room Air 09/07/17 07:40 Room Air 09/07/17 07:31 36.9 51 16 175/78 (110) 95 Room Air 09/06/17 23:35 Room Air Pre-Sedation Airway Assessment Smoking Status: Former Smoker Hx of Sleep Apnea: No Short Thick Neck: No Thyro-mental Distance: > 3 Finger Breadths Oral Cavity: Dentures Mallampati Classification: Class II ASA Classification: Class III NPO Status Date of Last Intake of Fluids: Sep 06, 2017 Time of Last Intake of Fluids: 2344 Date of Last Intake of Solids: Sep 06, 2016 Time of Last Intake of Solids: 2344 Procedure Planning Contraindications for Sedation: None Current Medications Reviewed: Yes Notes The planned sedation has been discussed with the patient. Informed Consent was obtained. I have identified the patient, determined the appropriateness of sedation and have assessed the patient immediately prior to the procedure. All medicine(s) and interventions are by my order.
[2017-09-07] MEDS ORDERED: MIDAZOLAM HCL 1 MG/ML 2ML VIAL IV ONE ×2 (12:02→12:28)
[2017-09-07] MEDS ORDERED: FENTANYL CITRATE INJ 50 MCG/1 ML 2 ML VIAL IV ONE ×2 (12:02→12:28)
[2017-09-07] MEDS ORDERED: LIDOCAINE HCL 1% 20 ML VIAL SQ ONE ×2 (12:10→12:42)
[2017-09-07] MEDS ORDERED: IODIXANOL (VISIPAQUE) 270 MG/ML 150ML IV ONE (12:42)
--- NOTE | 2017-09-07 12:44 | [facility] Post Operative Brief Note ---
Immediate Operative Summary Operative Date Sep 07, 2017. Pre-Operative Diagnosis Open TMA Right Foot, Peripheral Artery Disease Post-Operative Diagnosis Open TMA Right Foot, Peripheral Artery Disease Procedure(s) Performed Right Lower Extremity Arteriogram, Mechanical Closure of Right Lower Extremity, Moderate Sedation From [address] Rodriguez Saddle Stitch Operator Surgeon(s) none Estimated Blood Loss 10 Findings Consistent with Post-Op Diagnosis Specimens None Anesthesia Type IV Sedat Cons RN Only Complication(s) none Disposition Accompanied Pt To Recover: no Disposition:
--- NOTE | 2017-09-07 12:53 | Post Sedation Assessment ---
Post Sedation Assessment General Date of Sedation Sep 07, 2017. Vital Signs: Vital Signs Past 12 Hours Date Time Temp Pulse Resp B/P (MAP) Pulse Ox O2 Delivery O2 Flow Rate FiO2 09/07/17 11:02 36.7 52 16 174/85 (114) 100 Room Air 09/07/17 08:52 51 135/81 (99) 100 Room Air 09/07/17 07:40 Room Air 09/07/17 07:31 36.9 51 16 175/78 (110) 95 Room Air Post Procedure Recovery Score Activity: (2) Moves 4 extremities * Respiration: (2) Deep breath/cough Circulation: (2) +/-20% PreAnes Value Consciousness: (2) Fully Awake Oxygen Saturation: (2) > 92% On Room Air Post Anesthesia Score: 10 Discharge Sedation Level of Care: Fast Track Phase II Post Sedation Plan On clinical assessment, the patient appears to have tolerated the sedation without complications. Patient is recovering as anticipated. Patient will continue to be monitored by nursing and may be discharged when sedation discharge criteria are met per below protocol. Upon Completions of procedure and additional 15 minutes continue every 5 minute vital signs and the P.A.R. score; then discharge to a Phase I or Fast Track to Phase II per the following guidelines: * Discharge Patient to appropriate Phase II area if PAR is 8 or greater or return to pre- procedure baseline. The post - procedure orders will be as directed. * If PAR score is less than 8 or not return to pre-procedure baseline then patient will follow Phase I monitoring till PAR is reached for Phase II. The Phase I may be done in procedure room or may call to secure a Phase I area. * If naloxone or flumazenil are used for reversal, hold in Phase I for an additional 60 -120 minutes before discharge to Phase II. Please call the Sedation Physician to re-evaluate and complete post-note for discharge to Phase II area. Do NOT discharge from procedure sedation or Phase 1 until post- sedation evaluation note is complete by procedure /sedation MD Sedation Discharge Instructions to be given to the patient at discharge to home.
--- NOTE | 2017-09-07 12:53 | [facility] Operative Report ---
Operative Report Operative Date Sep 07, 2017. Pre-Operative Diagnosis Open TMA Right Foot, Peripheral Artery Disease Post-Operative Diagnosis Open TMA Right Foot, Peripheral Artery Disease Procedure(s) Performed Right Lower Extremity Arteriogram, Mechanical Closure of Right Lower Extremity, Moderate Sedation From [address] 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 He underwent a transmetatarsal amputation which has not healed. We now recommend a repeat arteriography and possible intervention if indicated.I have discussed the risks options and benefits of the procedure with the patient. The patient understands the risks options and benefits and agrees to the procedure. Description of Procedure Patient was taken to the angiogram suite and placed in the supine position. After the left groin was prepped and draped in a sterile manner local anesthetic was administered. A percutaneous puncture was made in the left Common femoral artery and a 5 Kazakh sheath inserted. An 035 Glidewire as well as a pigtail was inserted through the sheath into the infrarenal abdominal aorta. Arteriography was performed which showed moderate atherosclerotic changes of the iliacs by an common femoral arteries. This was seen on both sides. The pigtail using 035 wire was then advanced to the right external iliac artery and the right lower extremity runoff was performed. The superficial femoral artery stents are widely patent. There is a moderate stenosis just beyond the stent on the right side. The popliteal artery was patent until the takeoff of the anterior tibial. Anterior tibial artery appeared to be occluded with reconstitution at the interosseous membrane. The peroneal artery proximally was occluded with reconstitution in the upper third of the calf. The posterior tibial artery was totally occluded. The anterior tibial artery did reconstitute and cross the ankle. This artery however is fairly small. Next the pigtail was exchanged over a stiffened Glidewire and the 5 Kazakh sheath was exchanged to a 6 Kazakh destination. Using an 035 wire Quick cross catheter we tried to cannulate the peroneal artery on the right side. This could not be done. We then tried with an 014 command ES. Again the peroneal could not be cannulated. At that point we decided no further intervention will be attempted. The destination was pulled back over to the left side. Hand-injection showed the puncture site to be in the common femoral artery. The sheath was then pulled over a wire and the puncture site closed with a star close device without difficulty. Sterile dressings were applied. The patient left the Angio-Seal in good condition and tolerated procedure well. I attest to the content of the Intraoperative Record and any orders documented therein. Any exceptions are noted below.
[2017-09-07] MEDS: FLUOXETINE HCL 20 MG CAP PO SCH (13:36)
[2017-09-07] MEDS: ACETAMINOPHEN/CODEINE 300/30MG TAB PO PRN (15:38)
--- NOTE | 2017-09-07 18:49 | Infectious Disease Progress Nt ---
Progress Note Date of Service Sep 07, 2017. Subjective Pt evaluation today including: conversation w/ patient, physical exam, chart review, lab review, review of studies, conversation w/ advanced manufacturing consultant, review of inpatient medication list Status post angiography with finding of severe vascular disease of his distal right leg. Pain controlled. Remains afebrile. All Other Systems: Reviewed and Negative Medications Current Inpatient Medications Medications (Trade) Dose Ordered Sig/Sea Route Start Time Stop Time Status Last Admin Dose Admin Acetaminophen (Tylenol Tab) 650 mg Q4H PRN PO 09/02/17 23:15 10/02/17 23:14 09/05/17 00:13 650 MG Polyethylene (Miralax Powder Packet) 17 gm DAILY PRN PO 09/02/17 23:15 10/02/17 23:14 Ondansetron HCl (Zofran Inj) 4 mg Q6H PRN IV 09/02/17 23:15 10/02/17 23:14 Heparin Sodium (Porcine) (Heparin Sq 5000 Unit/0.5ml) 5,000 unit Q12H SQ 09/03/17 09:00 10/03/17 08:59 Future Hold 09/06/17 21:40 5,000 UNIT Acetaminophen/ Codeine Phosphate (Tylenol w/ Codeine #3 Tab) 2 tab Q6H PRN PO 09/02/17 23:15 10/02/17 23:14 09/07/17 15:38 2 TAB Carvedilol (Coreg Tab) 6.25 mg Q12 PO 09/03/17 09:00 10/03/17 08:59 09/06/17 21:37 6.25 MG Clopidogrel Bisulfate (plAVix TAB) 75 mg DAILY PO 09/03/17 09:00 10/03/17 08:59 09/07/17 10:15 75 MG Fluoxetine HCl (Prozac Cap) 20 mg DAILY PO 09/03/17 09:00 10/03/17 08:59 09/07/17 13:36 20 MG Multivitamins (Multivitamin Tab) 1 tab DAILY PO 09/03/17 09:00 10/03/17 08:59 09/06/17 09:10 1 TAB Miscellaneous Information (Order Awaiting Action) 1 ea QS N/A 09/03/17 08:00 10/03/17 07:59 Vancomycin HCl (Consult) 1 ea UD PRN N/A 09/02/17 23:15 10/02/17 23:14 Miscellaneous Information (Consult) 1 ea UD PRN N/A 09/02/17 23:15 10/02/17 23:14 Sodium Chloride 1,000 ml @ 50 mls/hr Q20H IV 09/02/17 23:59 10/02/17 23:58 09/06/17 17:07 50 MLS/HR Insulin Aspart (novoLOG ASPART) SLIDING SCALE G... ACHS SC 09/03/17 07:00 10/03/17 06:59 09/07/17 08:47 1 UNITS Piperacillin Sod/ Tazobactam Sod 4.5 gm/Dextrose 120 ml @ 30 mls/hr Q8H IV 09/03/17 08:00 10/15/17 07:59 09/07/17 15:58 30 MLS/HR Magnesium Chloride (Slow-Mag Tab) 64 mg BID PO 09/04/17 21:00 10/04/17 20:59 09/06/17 21:37 64 MG Non-Formulary Medication (Non-Formulary Patient'S Own Med) 1 ea Q12 PO 09/05/17 09:00 10/05/17 08:59 09/07/17 08:54 1 EA Vancomycin HCl 750 mg/Sodium Chloride 265 ml @ 125 mls/hr Q8H IV 09/05/17 22:00 10/17/17 21:59 09/07/17 13:37 125 MLS/HR Objective Vital Signs Date Time Temp Pulse Resp B/P (MAP) Pulse Ox O2 Delivery O2 Flow Rate FiO2 09/07/17 18:26 36.9 57 16 134/75 (94) 99 09/07/17 16:58 36.9 55 16 151/73 (99) 99 09/07/17 15:50 36.9 59 18 142/64 (90) 100 09/07/17 15:30 Room Air 09/07/17 14:45 56 16 185/84 (117) 98 Room Air 09/07/17 14:15 55 16 160/80 (106) 99 Room Air 09/07/17 13:46 58 16 159/76 (103) 100 Room Air 09/07/17 13:29 59 16 145/78 (100) 99 Room Air 09/07/17 13:13 36.4 51 16 157/86 (109) 100 Room Air 09/07/17 13:04 36.8 51 14 172/85 (114) 99 Room Air 09/07/17 13:00 Room Air 09/07/17 12:47 56 16 162/81 100 Oxymask 2 09/07/17 12:42 53 16 159/85 100 Oxymask 2 09/07/17 12:37 54 17 150/80 100 Oxymask 2 09/07/17 12:32 58 14 173/90 99 Oxymask 2 09/07/17 12:27 54 14 178/79 100 Oxymask 2 09/07/17 12:22 52 14 168/75 100 Oxymask 2 09/07/17 12:17 52 16 153/79 100 Oxymask 2 09/07/17 12:12 51 14 140/75 100 Oxymask 2 09/07/17 12:07 51 16 162/88 99 Oxymask 2 09/07/17 12:02 50 16 170/84 100 Oxymask 2 09/07/17 12:00 51 16 201/85 100 Oxymask 2 09/07/17 11:02 36.7 52 16 174/85 (114) 100 Room Air 09/07/17 08:52 51 135/81 (99) 100 Room Air 09/07/17 07:40 Room Air 09/07/17 07:31 36.9 51 16 175/78 (110) 95 Room Air 09/06/17 23:35 Room Air 09/06/17 22:52 36.9 60 16 137/73 (94) 99 Room Air 09/06/17 21:36 63 143/73 (96) 09/06/17 19:25 99 Room Air Physical Exam General Appearance: WD/WN, no apparent distress Eyes: normal inspection, EOMI ENT: normal ENT inspection, pharynx normal Neck: supple, no adenopathy, thyroid normal, trachea midline Respiratory/Chest: chest non-tender, lungs clear, normal breath sounds, no respiratory distress Cardiovascular: regular rate, rhythm, no gallop, no murmur Abdomen: normal bowel sounds, non tender, soft, no organomegaly Extremities: non-tender, no calf tenderness, + slow capillary refill Neurologic/Psychiatric: alert, oriented x 3 Skin: normal color, no rash, + pertinent finding (Right foot appears about the same) Lymphatic: no adenopathy Laboratory Results Last 24 Hours Test 09/06/17 21:08 09/07/17 05:43 09/07/17 08:02 09/07/17 13:05 Bedside Glucose 122 mg/dl 151 mg/dl 116 mg/dl White Blood Count 4.77 K/uL Red Blood Count 2.91 M/uL Hemoglobin 10.8 g/dL Hematocrit 30.1 % Mean Corpuscular Volume 103.4 fL Mean Corpuscular Hemoglobin 37.1 pg Mean Corpuscular Hemoglobin Concent 35.9 g/dl RDW Standard Deviation 54.4 fL RDW Coefficient of Variation 14.3 % Platelet Count 264 K/uL Mean Platelet Volume 9.0 fL Sodium Level 140 mmol/L Potassium Level 3.9 mmol/L Chloride Level 109 mmol/L Carbon Dioxide Level 20 mmol/L Anion Gap 11.0 mmol/L Blood Urea Nitrogen 13 mg/dl Creatinine 0.75 mg/dl Est Creatinine Clear Calc Drug Dose 84.4 ml/min Estimated GFR () 112.4 Estimated GFR (Non- 96.9 BUN/Creatinine Ratio 17.8 Random Glucose 135 mg/dl Calcium Level 7.5 mg/dl Chemistry Specimen Hemolysis Vancomycin Level Trough 16.5 mcg/ml Test 09/07/17 16:56 Bedside Glucose 128 mg/dl Assessment and Plan 62-year-old diabetic male with HIV infection status post right transmetatarsal amputation now with open wound with exposed bone and likely osteomyelitis. Now s /p angiography with finding of severe PAD. to continue Abx, will follow.
--- NOTE | 2017-09-07 21:43 | Progress Note ---
Medicine Progress Note Date & Time of Visit: Sep 07, 2017 at 16:50 . Subjective CC: Follow-up visit for osteomyelitis right foot and other problems. HPI: Underwent angiogram RLE today without incident. No new problems. No fever. Blood sugars have been well controlled. Foot pain well controlled. ROS: General- no fever, no chills Resp- no cough; no shortness of breath Cardiac- no chest pain, no edema GI- no nausea, no vomiting, no diarrhea, no constipation - no dysuria . Objective Last 8 Hrs Date Time Temp Pulse Resp B/P (MAP) Pulse Ox O2 Delivery O2 Flow Rate FiO2 09/07/17 21:04 57 148/79 (102) 09/07/17 18:26 36.9 57 16 134/75 (94) 99 09/07/17 16:58 36.9 55 16 151/73 (99) 99 09/07/17 15:50 36.9 59 18 142/64 (90) 100 09/07/17 15:30 Room Air 09/07/17 14:45 56 16 185/84 (117) 98 Room Air 09/07/17 14:15 55 16 160/80 (106) 99 Room Air 09/07/17 13:46 58 16 159/76 (103) 100 Room Air Physical Exam: General- lying in bed; no distress Lungs- clear to auscultation; no respiratory distress Cardiovascular- RRR; no murmur or gallop appreciated; no JVD; no pretibial edema Abdomen- + bowel sounds, soft, nontender Extremities- no cyanosis; no calf tenderness; right foot bandaged Neuro- alert, oriented Skin- warm & dry . Laboratory Results: Last 24 Hours Test 09/07/17 05:43 09/07/17 08:02 09/07/17 13:05 09/07/17 16:56 White Blood Count 4.77 K/uL Red Blood Count 2.91 M/uL Hemoglobin 10.8 g/dL Hematocrit 30.1 % Mean Corpuscular Volume 103.4 fL Mean Corpuscular Hemoglobin 37.1 pg Mean Corpuscular Hemoglobin Concent 35.9 g/dl RDW Standard Deviation 54.4 fL RDW Coefficient of Variation 14.3 % Platelet Count 264 K/uL Mean Platelet Volume 9.0 fL Sodium Level 140 mmol/L Potassium Level 3.9 mmol/L Chloride Level 109 mmol/L Carbon Dioxide Level 20 mmol/L Anion Gap 11.0 mmol/L Blood Urea Nitrogen 13 mg/dl Creatinine 0.75 mg/dl Est Creatinine Clear Calc Drug Dose 84.4 ml/min Estimated GFR () 112.4 Estimated GFR (Non- 96.9 BUN/Creatinine Ratio 17.8 Random Glucose 135 mg/dl Calcium Level 7.5 mg/dl Chemistry Specimen Hemolysis Vancomycin Level Trough 16.5 mcg/ml Bedside Glucose 151 mg/dl 116 mg/dl 128 mg/dl Test 09/07/17 20:46 Bedside Glucose 142 mg/dl Assessment & Plan SUSPECTED OSTEOMYELITIS Ortho input appreciated. ID & Vascular Surgery consulted. Continue IV antibiotic therapy with vancomycin and piperacillin / tazobactam. PERIPHERAL VASCULAR DISEASE Records from [place] requested regarding prior vascular evaluations / interventions. Arterial duplex RLE: IMPRESSION: Normal study. 1. Stent within the right superficial femoral artery which is patent. 2. Moderate to moderate a significant small vessel arterial occlusive change bilaterally. 3. Small focal area of stenosis and occlusion Mid distal left superficial femoral artery with moderate reconstitution. Angiography RLE today: iliac and common femoral artery- moderate disease superficial femoral artery- patent stent with moderate stenosis distally popliteal artery- patent until takeoff of the anterior tibial anterior tibial- occluded with reconstitution at the interosseous membrane peroneal artery- occluded with reconstitution in the upper third of the calf posterior tibial-occluded No interventions performed. HIV Patient does not know results of recent viral load or CD4. Old records requested. Continue Trizivir. DM TYPE 2 Hgb A1C = 6.2. Hold metformin during hospital stay. FBS today = 151. Continue NovoLog coverage as needed. VTE PROPHYLAXIS SQ heparin. DISPOSITION To be determined; may need skilled care when medically stable. Primary Care follow-up with [facility]. Will need local follow-up with ID. . Current Inpatient Medications: Current Inpatient Medications Medications (Trade) Dose Ordered Sig/Sea Route Start Time Stop Time Status Last Admin Dose Admin Acetaminophen (Tylenol Tab) 650 mg Q4H PRN PO 09/02/17 23:15 10/02/17 23:14 09/05/17 00:13 650 MG Polyethylene (Miralax Powder Packet) 17 gm DAILY PRN PO 09/02/17 23:15 10/02/17 23:14 Ondansetron HCl (Zofran Inj) 4 mg Q6H PRN IV 09/02/17 23:15 10/02/17 23:14 Heparin Sodium (Porcine) (Heparin Sq 5000 Unit/0.5ml) 5,000 unit Q12H SQ 09/03/17 09:00 10/03/17 08:59 Future Hold 09/06/17 21:40 5,000 UNIT Acetaminophen/ Codeine Phosphate (Tylenol w/ Codeine #3 Tab) 2 tab Q6H PRN PO 09/02/17 23:15 10/02/17 23:14 09/07/17 15:38 2 TAB Carvedilol (Coreg Tab) 6.25 mg Q12 PO 09/03/17 09:00 10/03/17 08:59 09/06/17 21:37 6.25 MG Clopidogrel Bisulfate (plAVix TAB) 75 mg DAILY PO 09/03/17 09:00 10/03/17 08:59 09/07/17 10:15 75 MG Fluoxetine HCl (Prozac Cap) 20 mg DAILY PO 09/03/17 09:00 10/03/17 08:59 09/07/17 13:36 20 MG Multivitamins (Multivitamin Tab) 1 tab DAILY PO 09/03/17 09:00 10/03/17 08:59 09/06/17 09:10 1 TAB Miscellaneous Information (Order Awaiting Action) 1 ea QS N/A 09/03/17 08:00 10/03/17 07:59 Vancomycin HCl (Consult) 1 ea UD PRN N/A 09/02/17 23:15 10/02/17 23:14 Miscellaneous Information (Consult) 1 ea UD PRN N/A 09/02/17 23:15 10/02/17 23:14 Sodium Chloride 1,000 ml @ 50 mls/hr Q20H IV 09/02/17 23:59 10/02/17 23:58 09/06/17 17:07 50 MLS/HR Insulin Aspart (novoLOG ASPART) SLIDING SCALE G... ACHS SC 09/03/17 07:00 10/03/17 06:59 09/07/17 21:12 1 UNITS Piperacillin Sod/ Tazobactam Sod 4.5 gm/Dextrose 120 ml @ 30 mls/hr Q8H IV 09/03/17 08:00 10/15/17 07:59 09/07/17 15:58 30 MLS/HR Magnesium Chloride (Slow-Mag Tab) 64 mg BID PO 09/04/17 21:00 10/04/17 20:59 09/07/17 21:14 64 MG Non-Formulary Medication (Non-Formulary Patient'S Own Med) 1 ea Q12 PO 09/05/17 09:00 10/05/17 08:59 09/07/17 21:09 1 EA Vancomycin HCl 750 mg/Sodium Chloride 265 ml @ 125 mls/hr Q8H IV 09/05/17 22:00 10/17/17 21:59 09/07/17 13:37 125 MLS/HR
[2017-09-07] MEDS ORDERED: NURSING VERBAL MED ORDER ONE (22:30)
[2017-09-08] MEDS: SODIUM CHLORIDE 0.9% 1000ML 1,000 ML IV SCH (00:25)
[2017-09-08] MEDS: PIPERACILL/TAZOBAC IV 4.5 GM in D5W 100 ML IV SCH ×4 (00:25→23:34)
[2017-09-08 03:49] VITALS: BP 166/83; PULSE 58; TEMP 36.8; O2SAT 99
[2017-09-08] MEDS: VANCOMYCIN IV 750 MG in SODIUM CHLORIDE 0.9% 250ML 250 ML IV SCH ×3 (05:57→21:58)
[2017-09-08 07:01] LABS: HEMATOCRIT 29.7 % (42-52); HEMOGLOBIN 10.5 g/dL (14.0-18.0); MEAN CELL VOLUME 101.7 fL (80-100); MEAN CORPUSCULAR HGB CONC 35.4 g/dl (32-36); PLATELET COUNT 245 K/uL (130-400); RED CELL DISTRIBUTION WIDTH CV 14.1 % (11.5-14.5); RED CELL DISTRIBUTION WIDTH SD 52.3 fL (36.4-46.3); WHITE BLOOD COUNT 5.38 K/uL (4.8-10.8)
[2017-09-08 07:15] VITALS: BP 165/72; PULSE 51; TEMP 37; O2SAT 100
[2017-09-08 07:42] LABS: CALCIUM 8.1 mg/dl (8.5-10.1); CREATININE 0.84 mg/dl (0.60-1.40); POTASSIUM 4.3 mmol/L (3.5-5.1)
[2017-09-08] MEDS: CLOPIDOGREL BISULFATE 75 MG TAB PO SCH (08:38)
[2017-09-08] MEDS: CARVEDILOL 6.25 MG TAB PO SCH ×2 (08:38→20:29)
[2017-09-08] MEDS: TRIZIVIR PO SCH ×2 (08:38→20:29)
[2017-09-08] MEDS: MAGNESIUM CHLORIDE 64MG DELAYED REL TAB PO SCH ×2 (08:38→20:29)
[2017-09-08] MEDS: MULTIVITAMIN TAB PO SCH (08:38)
[2017-09-08] MEDS: FLUOXETINE HCL 20 MG CAP PO SCH (08:39)
[2017-09-08 12:29] VITALS: BP 142/79; PULSE 57; TEMP 36.9; O2SAT 99
--- NOTE | 2017-09-08 14:07 | Anesthesiology Progress Note ---
Anesthesia Progress Note Date of Service Sep 08, 2017. Progress Notes The patient is a 62 y/o male scheduled for R transmetatarsal amputation revision tomorrow due to osteomyelitis. PMH includes HIV, longtime smoker, HTN , DM, and anemia. He has an EKG ordered that is pending. The patient was consented for R ankle block for anesthesia with general anesthesia as backup. He was counseled to remain NPO after midnight except for sips of water with pills.
[2017-09-08 15:24] VITALS: BP 151/77; PULSE 60; TEMP 37; O2SAT 98
[2017-09-08 20:28] VITALS: BP 176/78; PULSE 62
[2017-09-08] MEDS ORDERED: NURSING VERBAL MED ORDER ONE (22:15)
[2017-09-08 23:05] VITALS: BP 158/80; PULSE 65; TEMP 37; O2SAT 96
--- NOTE | 2017-09-08 23:47 | Progress Note ---
Medicine Progress Note Date & Time of Visit: Sep 08, 2017 at 12:00 . Subjective CC: Follow-up visit for osteomyelitis right foot and other problems. HPI: No new problems. No fever. Foot pain well controlled. ROS: General- no fever, no chills Resp- no cough; no shortness of breath Cardiac- no chest pain, no edema GI- no nausea, no vomiting, no diarrhea, no constipation - no dysuria . Objective Last 8 Hrs Date Time Temp Pulse Resp B/P (MAP) Pulse Ox O2 Delivery O2 Flow Rate FiO2 09/08/17 23:05 37.0 65 18 158/80 (106) 96 Room Air 09/08/17 20:28 62 176/78 (110) 09/08/17 16:00 Room Air Physical Exam: General- lying in bed; no distress Lungs- clear to auscultation; no respiratory distress Cardiovascular- RRR; no murmur or gallop appreciated; no JVD; no pretibial edema Abdomen- + bowel sounds, soft, nontender Extremities- no cyanosis; no calf tenderness; right foot bandaged Neuro- alert, oriented Skin- warm & dry . Laboratory Results: Last 24 Hours Test 09/08/17 06:33 White Blood Count 5.38 K/uL Red Blood Count 2.92 M/uL Hemoglobin 10.5 g/dL Hematocrit 29.7 % Mean Corpuscular Volume 101.7 fL Mean Corpuscular Hemoglobin 36.0 pg Mean Corpuscular Hemoglobin Concent 35.4 g/dl RDW Standard Deviation 52.3 fL RDW Coefficient of Variation 14.1 % Platelet Count 245 K/uL Mean Platelet Volume 9.0 fL Sodium Level 139 mmol/L Potassium Level 4.3 mmol/L Chloride Level 109 mmol/L Carbon Dioxide Level 26 mmol/L Anion Gap 4.0 mmol/L Blood Urea Nitrogen 14 mg/dl Creatinine 0.84 mg/dl Est Creatinine Clear Calc Drug Dose 75.4 ml/min Estimated GFR () 107.2 Estimated GFR (Non- 92.5 BUN/Creatinine Ratio 16.6 Random Glucose 139 mg/dl Calcium Level 8.1 mg/dl Chemistry Specimen Hemolysis Assessment & Plan SUSPECTED OSTEOMYELITIS Ortho input appreciated. ID & Vascular Surgery consulted. Surgical management per Ortho. Continue IV antibiotic therapy with vancomycin and piperacillin / tazobactam. PERIPHERAL VASCULAR DISEASE Records from [place] requested regarding prior vascular evaluations / interventions. Arterial duplex RLE: IMPRESSION: Normal study. 1. Stent within the right superficial femoral artery which is patent. 2. Moderate to moderate a significant small vessel arterial occlusive change bilaterally. 3. Small focal area of stenosis and occlusion Mid distal left superficial femoral artery with moderate reconstitution. Angiography RLE today: iliac and common femoral artery- moderate disease superficial femoral artery- patent stent with moderate stenosis distally popliteal artery- patent until takeoff of the anterior tibial anterior tibial- occluded with reconstitution at the interosseous membrane peroneal artery- occluded with reconstitution in the upper third of the calf posterior tibial-occluded No interventions performed. HIV Patient does not know results of recent viral load or CD4. Old records requested. Continue Trizivir. DM TYPE 2 Hgb A1C = 6.2. Hold metformin during hospital stay. FBS today = 139. Highest fingerstick blood sugar has been 151; most have been less than 140. Has received minimal insulin coverage. Will suspend BSG's. Follow fasting blood sugars with BMP. VTE PROPHYLAXIS SQ heparin. DISPOSITION To be determined; may need skilled care when medically stable. Primary Care follow-up with [facility]. Will need local follow-up with ID. . Current Inpatient Medications: Current Inpatient Medications Medications (Trade) Dose Ordered Sig/Sea Route Start Time Stop Time Status Last Admin Dose Admin Acetaminophen (Tylenol Tab) 650 mg Q4H PRN PO 09/02/17 23:15 10/02/17 23:14 09/05/17 00:13 650 MG Polyethylene (Miralax Powder Packet) 17 gm DAILY PRN PO 09/02/17 23:15 10/02/17 23:14 Ondansetron HCl (Zofran Inj) 4 mg Q6H PRN IV 09/02/17 23:15 10/02/17 23:14 Heparin Sodium (Porcine) (Heparin Sq 5000 Unit/0.5ml) 5,000 unit Q12H SQ 09/03/17 09:00 10/03/17 08:59 Future Hold 09/06/17 21:40 5,000 UNIT Acetaminophen/ Codeine Phosphate (Tylenol w/ Codeine #3 Tab) 2 tab Q6H PRN PO 09/02/17 23:15 10/02/17 23:14 09/07/17 15:38 2 TAB Carvedilol (Coreg Tab) 6.25 mg Q12 PO 09/03/17 09:00 10/03/17 08:59 09/08/17 20:29 6.25 MG Clopidogrel Bisulfate (plAVix TAB) 75 mg DAILY PO 09/03/17 09:00 10/03/17 08:59 09/08/17 08:38 75 MG Fluoxetine HCl (Prozac Cap) 20 mg DAILY PO 09/03/17 09:00 10/03/17 08:59 09/08/17 08:39 20 MG Multivitamins (Multivitamin Tab) 1 tab DAILY PO 09/03/17 09:00 10/03/17 08:59 09/08/17 08:38 1 TAB Miscellaneous Information (Order Awaiting Action) 1 ea QS N/A 09/03/17 08:00 10/03/17 07:59 Vancomycin HCl (Consult) 1 ea UD PRN N/A 09/02/17 23:15 10/02/17 23:14 Miscellaneous Information (Consult) 1 ea UD PRN N/A 09/02/17 23:15 10/02/17 23:14 Sodium Chloride 1,000 ml @ 50 mls/hr Q20H IV 09/02/17 23:59 10/02/17 23:58 09/08/17 00:25 50 MLS/HR Piperacillin Sod/ Tazobactam Sod 4.5 gm/Dextrose 120 ml @ 30 mls/hr Q8H IV 09/03/17 08:00 10/15/17 07:59 09/08/17 23:34 30 MLS/HR Magnesium Chloride (Slow-Mag Tab) 64 mg BID PO 09/04/17 21:00 10/04/17 20:59 09/08/17 20:29 64 MG Non-Formulary Medication (Non-Formulary Patient'S Own Med) 1 ea Q12 PO 09/05/17 09:00 10/05/17 08:59 09/08/17 20:29 1 EA Vancomycin HCl 750 mg/Sodium Chloride 265 ml @ 125 mls/hr Q8H IV 09/05/17 22:00 10/17/17 21:59 09/08/17 21:58 125 MLS/HR
[2017-09-09] VITALS (10 sets, daily range): BP systolic 103–172; BP diastolic 64–79; PULSE 56–89; TEMP 36.4–37; O2SAT 98–100
[2017-09-09] MEDS: VANCOMYCIN IV 750 MG in SODIUM CHLORIDE 0.9% 250ML 250 ML IV SCH ×3 (05:31→21:19)
[2017-09-09] MEDS: SODIUM CHLORIDE 0.9% 1000ML 1,000 ML IV SCH ×2 (05:32→15:40)
[2017-09-09] MEDS: PIPERACILL/TAZOBAC IV 4.5 GM in D5W 100 ML IV SCH ×3 (07:35→23:35)
[2017-09-09] MEDS: MULTIVITAMIN TAB PO SCH (08:40)
[2017-09-09] MEDS: TRIZIVIR PO SCH ×2 (08:40→21:18)
[2017-09-09] MEDS: MAGNESIUM CHLORIDE 64MG DELAYED REL TAB PO SCH ×2 (08:40→21:18)
[2017-09-09] MEDS: FLUOXETINE HCL 20 MG CAP PO SCH (08:41)
[2017-09-09] MEDS: CARVEDILOL 6.25 MG TAB PO SCH ×2 (08:41→21:18)
[2017-09-09] MEDS ORDERED: ROPIVACAINE 0.5% 5 MG/ML 30 ML VIAL INFIL ONE (09:29)
[2017-09-09] MEDS ORDERED: BACITRACIN 50000 UNIT VIAL ONE (10:50)
[2017-09-09] MEDS ORDERED: FENTANYL CITRATE INJ 50 MCG/1 ML 2 ML VIAL ONE (11:26)
[2017-09-09] MEDS ORDERED: MIDAZOLAM HCL 1 MG/ML 2ML VIAL ONE (11:26)
[2017-09-09] MEDS ORDERED: LIDOCAINE HCL 2% 2 ML VIAL (20MG/ML) ONE (11:27)
[2017-09-09] MEDS ORDERED: PROPOFOL IV EMULSION 10 MG/ML 20 ML VIAL ONE (11:27)
[2017-09-09] MEDS ORDERED: ONDANSETRON INJ 2 MG/ML 2 ML VIAL ONE (11:27)
[2017-09-09] MEDS ORDERED: ATROPINE SULFATE 0.1 MG/ML 5ML SYR IV PRN (11:30)
[2017-09-09] MEDS ORDERED: PHENYLEPHRINE 100MCG/ML 5ML SYR IV PRN (11:30)
[2017-09-09] MEDS ORDERED: HYDROmorphone INJ 2 MG/ML SYR/VIAL IV PRN (11:30)
[2017-09-09] MEDS ORDERED: FENTANYL CITRATE INJ 50 MCG/1 ML 2 ML VIAL IV PRN (11:30)
[2017-09-09] MEDS ORDERED: EpHEDrine SULFATE INJ 50 MG/ML AMP IV PRN (11:30)
[2017-09-09] MEDS ORDERED: MEPERIDINE HCL 25 MG/ML CARP IV PRN (11:30)
[2017-09-09] MEDS ORDERED: LABETALOL HCL IV 5 MG/ML 20ML IV PRN (11:30)
[2017-09-09] MEDS ORDERED: ONDANSETRON INJ 2 MG/ML 2 ML VIAL IV PRN (11:30)
[2017-09-09] MEDS ORDERED: NALOXONE HCL 0.4 MG/1 ML VIAL/CARP IV PRN (11:30)
[2017-09-09] MEDS ORDERED: FLUMAZENIL 0.1 MG/1 ML 10 ML VIAL IV PRN (11:30)
--- NOTE | 2017-09-09 11:41 | History & Physical Bridge Note ---
H&P Re-Evaluation Bridge Note: I have examined the patient, reviewed the History & Physical and in the interval since the performance of the History & Physical I have noted the following changes of clinical significance: No changes noted
[2017-09-09] MEDS ORDERED: EpHEDrine SULFATE 50MG/5ML SYR ONE (12:22)
[2017-09-09] MEDS ORDERED: EpHEDrine SULFATE INJ 50 MG/ML AMP ONE (12:52)
--- NOTE | 2017-09-09 13:29 | [facility] Post Operative Brief Note ---
Immediate Operative Summary Operative Date Sep 09, 2017. Pre-Operative Diagnosis Right foot osteomyelitis first and third metatarsals, Right foot wound dehiscence Transmetatarsal Right Foot, Peripheral Artery Disease, HIV, DM type 2 Post-Operative Diagnosis Right foot wound dehiscence, status post Transmetatarsal Amputation, Osteomyelitis First and Third Distal Metatarsals, Peripheral Vascular Disease, HIV positive, Diabetes mellitus type 2. Procedure(s) Performed Right Foot Transmetatarsal Amputation Revision Including First through Fifth metatarsals Surgeon Dr. Neo Osei Banana Grader Surgeon(s) Babak Tompkins PA-C Estimated Blood Loss 75ml Findings Consistent with Post-Op Diagnosis Specimens A.) First Metatarsal, Right Foot Drains HV x 1 Anesthesia Type General Regional Complication(s) none Disposition Accompanied Pt To Recover: no Disposition: Recovery Room / PACU
[2017-09-09] MEDS ORDERED: HydrALAZINE HCL 20 MG/ML VIAL IV. STA ×2 (13:41→14:03)
--- NOTE | 2017-09-09 14:26 | Anesthesiology Progress Note ---
Anesthesia Post Op Note Date & Time Sep 09, 2017 at 14:25 Vital Signs Pain Intensity: 0 Vital Signs Past 12 Hours Date Time Temp Pulse Resp B/P (MAP) Pulse Ox O2 Delivery O2 Flow Rate FiO2 09/09/17 14:15 36.4 64 16 162/84 100 Room Air 09/09/17 14:05 58 16 196/91 100 Room Air 09/09/17 13:55 51 16 220/101 100 Oxymask 10 09/09/17 13:45 54 16 215/104 100 Oxymask 10 09/09/17 13:35 36.3 70 16 198/96 99 Oxymask 10 09/09/17 08:41 59 09/09/17 07:50 Room Air 09/09/17 07:12 37.0 56 16 172/71 (104) 98 Room Air Notes Mental Status: alert / awake / arousable, participated in evaluation Pt Amnestic to Procedure: Yes Nausea / Vomiting: adequately controlled Pain: adequately controlled Airway Patency, RR, SpO2: stable & adequate BP & HR: stable & adequate, see Notes Hydration State: stable & adequate Anesthetic Complications: no major complications apparent The patient did well. He was noted to be hypertensive preoperatively. In the OR, he required several doses of ephedrine to maintain his blood pressure. He was again hypertensive in the PACU where he was treated with hydralazine. All of his other vitals have been stable. His blood pressure is close to his baseline now. He is awake and comfortable.
--- NOTE | 2017-09-09 15:15 | OPERATIVE REPORT ---
DATE OF OPERATION: 09/09/2017 PREOPERATIVE DIAGNOSES: 1. Osteomyelitis, first and third metatarsals of the right foot. 2. Wound dehiscence, right foot transmetatarsal amputation. 3. Peripheral vascular disease. 4. Diabetes mellitus. 5. Human immunodeficiency virus positive. POSTOPERATIVE DIAGNOSES: 1. Osteomyelitis, first and third metatarsals of the right foot. 2. Wound dehiscence, right foot transmetatarsal amputation. 3. Peripheral vascular disease. 4. Diabetes mellitus. 5. Human immunodeficiency virus positive. PROCEDURE: Right foot revision transmetatarsal amputation including first, second, third, fourth, and fifth metatarsals. SURGEON: Neo Osei DO PREPRESS SUPERVISOR: Babak Tompkins PA-C who was present for patient positioning, sterile prep and drape, management of retractors and instruments. He was present through the critical portions of the case including wound closure, application of sterile dressing and transport of the patient to recovery. ANESTHESIA: General LMA with popliteal block. SPECIMENS: Right foot first metatarsal. DRAINS: Hemovac x1. COMPLICATIONS: None. BLOOD LOSS: 75 mL. PERTINENT HISTORY: This is a 62-year-old gentleman who has had ongoing peripheral vascular disease, diabetes mellitus, HIV who had a prior ulceration with osteomyelitis of his right foot cared for by a surgeon in [facility] in [place] in June. Had a smoldering wound complications for approximately 6-8 weeks and then presented to the [facility] with his son. He was doing wound care and then had dehiscence of his wound with exposed bone of the first metatarsal. Imaging demonstrated osteomyelitis. The patient had an attempted vascular procedure by Dr. Rodriguez which was unfortunately unable to be performed due to the extent of his disease and the patient was then scheduled for revision transmetatarsal amputation as indicated. All potential risks, benefits, complications, alternatives, rehab, potential for incomplete relief of symptoms, need for further surgery, DVT, PE, persistent pain, swelling, scarring, weakness, neurovascular injury, wound complications, and need for potential revision amputation was discussed with the patient. The patient decided to proceed with the procedure as indicated. DESCRIPTION OF PROCEDURE: The patient had a popliteal block administered in the preop holding area. He was then taken to the operative suite, placed supine on the operating room table. After reviewing consent and identification of proper operative site, the patient was anesthetized, LMA was placed. Tourniquet was placed high on the right thigh over cast padding. Right lower extremity was then sterilely prepped and draped in usual fashion, elevated and partially exsanguinated from the mid calf proximal and exsanguinated with an Esmarch bandage, tourniquet inflated to 325 mmHg. Next, a 15 blade scalpel was used to incise the hypertrophic avascular tissue at the wound margins, first to encourage a fresh bleeding tissue. Bleeding tissue was noted. Next, the dorsal flap was then incised with a margin of approximately 2-3 mm to freshen the tissue and also make a straight healthy margin for closure. Next, the metatarsals first, second, third, fourth, and fifth were then skeletonized with a Freeman elevator. Next, a sagittal saw was then used to resect the distal aspect of the first, second, third, fourth, and fifth metatarsals. These fragments were then removed and the first metatarsal fragment was then sent for specimen and culture including aerobic, anaerobic, and Gram stain. Next, the soft tissue was then sharply incised including the fascia, flexor and extensor tendons and particularly the dorsal flap to revise the shape and contour. Next, a rongeur was then used to debride the flap carefully. Next, pulsatile lavage with 3 L saline with bacitracin was then used to cleanse the residual foot and next 10 [place] Hemovac drain was placed and then the flap was closed full thickness over the drain using a combination of 3-0 and 2-0 nylon sutures. The flap had low tension load and no tension closure. The sterile compressive dressing was applied overwrapped with an Khurram wrap. The tourniquet was released, the patient was awakened and taken to recovery in stable condition. I attest to the content of the Intraoperative Record and any orders documented therein. Any exception s are noted below.
[2017-09-09] MEDS: ACETAMINOPHEN/CODEINE 300/30MG TAB PO PRN (19:44)
--- NOTE | 2017-09-09 20:07 | DIAGNOSTIC IMAGING REPORT ---
R FOOT MIN 3 VIEWS ROUTINE CLINICAL HISTORY: post op COMPARISON: 09/02/2017 DISCUSSION: Limited images showing revision and/or additional resection of components of the metatarsals. Phalanges have been previously resected. Surgical drains are in position. Expected soft tissue postoperative change. IMPRESSION: Doppler changes consistent with slightly progressive metatarsal resection compared to the prior study. The above report was generated using voice recognition software. It may contain grammatical, syntax or spelling errors. Electronically signed by: Wilian Hernandez M.D. 09/09/2017 8:06 PM Dictated Date/Time: 09/09/2017 8:05 PM
--- NOTE | 2017-09-09 20:40 | Progress Note ---
Medicine Progress Note Date & Time of Visit: Sep 09, 2017 at 19:45 . Subjective CC: Follow-up visit for osteomyelitis right foot and other problems. HPI: Revision of right transmetatarsal amputation done today. Doing well post op. No significant pain. ROS: General- no fever, no chills Resp- no cough; no shortness of breath Cardiac- no chest pain, no edema GI- no nausea, no vomiting, no diarrhea, no constipation - no dysuria . Objective Last 8 Hrs Date Time Temp Pulse Resp B/P (MAP) Pulse Ox O2 Delivery O2 Flow Rate FiO2 09/09/17 19:13 37.0 89 18 103/65 (78) 98 Room Air 09/09/17 17:38 36.8 77 18 121/68 (85) 99 Room Air 09/09/17 16:44 36.4 72 18 113/67 (82) 99 Room Air 09/09/17 16:00 Room Air 09/09/17 15:40 36.4 69 18 147/79 (101) 100 Room Air 09/09/17 15:16 36.5 77 18 143/72 (95) 100 Room Air 09/09/17 14:40 100 Room Air 09/09/17 14:40 36.5 76 18 150/77 (101) 100 Room Air 09/09/17 14:40 Room Air 09/09/17 14:25 65 16 151/84 100 Room Air 09/09/17 14:15 36.4 64 16 162/84 100 Room Air 09/09/17 14:05 58 16 196/91 100 Room Air 09/09/17 13:55 51 16 220/101 100 Oxymask 10 09/09/17 13:45 54 16 215/104 100 Oxymask 10 09/09/17 13:35 36.3 70 16 198/96 99 Oxymask 10 Physical Exam: General- lying in bed; no distress Lungs- clear to auscultation; no respiratory distress Cardiovascular- RRR; no murmur or gallop appreciated; no JVD; no pretibial edema Abdomen- + bowel sounds, soft, nontender Extremities- no cyanosis; no calf tenderness; right foot bandaged Neuro- alert, oriented Skin- warm & dry . Laboratory Results: Last 24 Hours Test 09/09/17 11:03 09/09/17 12:21 09/09/17 14:03 Bedside Glucose 131 mg/dl 134 mg/dl Assessment & Plan SUSPECTED OSTEOMYELITIS Ortho input appreciated. ID & Vascular Surgery consulted. Revision right transmetatarsal amputation performed. Continue IV antibiotic therapy with vancomycin and piperacillin / tazobactam. PERIPHERAL VASCULAR DISEASE Records from [place] requested regarding prior vascular evaluations / interventions. Arterial duplex RLE: IMPRESSION: Normal study. 1. Stent within the right superficial femoral artery which is patent. 2. Moderate to moderate a significant small vessel arterial occlusive change bilaterally. 3. Small focal area of stenosis and occlusion Mid distal left superficial femoral artery with moderate reconstitution. Angiography RLE today: iliac and common femoral artery- moderate disease superficial femoral artery- patent stent with moderate stenosis distally popliteal artery- patent until takeoff of the anterior tibial anterior tibial- occluded with reconstitution at the interosseous membrane peroneal artery- occluded with reconstitution in the upper third of the calf posterior tibial-occluded No interventions performed. HIV Patient does not know results of recent viral load or CD4. Old records requested. Continue Trizivir. DM TYPE 2 Hgb A1C = 6.2. Hold metformin during hospital stay. Has required minimal insulin coverage. FBS today = 131. Follow fasting blood sugars with BMP. VTE PROPHYLAXIS SQ heparin. DISPOSITION To be determined; may need skilled care or inpatient rehab when medically stable. [facility] Care follow-up with [facility]. Will need local follow-up with ID. . Current Inpatient Medications: Current Inpatient Medications Medications (Trade) Dose Ordered Sig/Sea Route Start Time Stop Time Status Last Admin Dose Admin Acetaminophen (Tylenol Tab) 650 mg Q4H PRN PO 09/02/17 23:15 10/02/17 23:14 09/05/17 00:13 650 MG Polyethylene (Miralax Powder Packet) 17 gm DAILY PRN PO 09/02/17 23:15 10/02/17 23:14 Ondansetron HCl (Zofran Inj) 4 mg Q6H PRN IV 09/02/17 23:15 10/02/17 23:14 Heparin Sodium (Porcine) (Heparin Sq 5000 Unit/0.5ml) 5,000 unit Q12H SQ 09/03/17 09:00 10/03/17 08:59 Future Hold 09/06/17 21:40 5,000 UNIT Acetaminophen/ Codeine Phosphate (Tylenol w/ Codeine #3 Tab) 2 tab Q6H PRN PO 09/02/17 23:15 10/02/17 23:14 09/09/17 19:44 2 TAB Carvedilol (Coreg Tab) 6.25 mg Q12 PO 09/03/17 09:00 10/03/17 08:59 09/09/17 08:41 6.25 MG Fluoxetine HCl (Prozac Cap) 20 mg DAILY PO 09/03/17 09:00 10/03/17 08:59 09/09/17 08:41 20 MG Multivitamins (Multivitamin Tab) 1 tab DAILY PO 09/03/17 09:00 10/03/17 08:59 09/08/17 08:38 1 TAB Miscellaneous Information (Order Awaiting Action) 1 ea QS N/A 09/03/17 08:00 10/03/17 07:59 Vancomycin HCl (Consult) 1 ea UD PRN N/A 09/02/17 23:15 10/02/17 23:14 Miscellaneous Information (Consult) 1 ea UD PRN N/A 09/02/17 23:15 10/02/17 23:14 Sodium Chloride 1,000 ml @ 50 mls/hr Q20H IV 09/02/17 23:59 10/02/17 23:58 09/09/17 15:40 50 MLS/HR Piperacillin Sod/ Tazobactam Sod 4.5 gm/Dextrose 120 ml @ 30 mls/hr Q8H IV 09/03/17 08:00 10/15/17 07:59 09/09/17 15:31 30 MLS/HR Magnesium Chloride (Slow-Mag Tab) 64 mg BID PO 09/04/17 21:00 10/04/17 20:59 09/08/17 20:29 64 MG Non-Formulary Medication (Non-Formulary Patient'S Own Med) 1 ea Q12 PO 09/05/17 09:00 10/05/17 08:59 09/09/17 08:40 1 EA Vancomycin HCl 750 mg/Sodium Chloride 265 ml @ 125 mls/hr Q8H IV 09/05/17 22:00 10/17/17 21:59 09/09/17 15:31 125 MLS/HR Oxycodone HCl (Roxicodone Immediate Rel Tab) 5 mg Q4H PRN PO 09/09/17 14:15 09/23/17 14:14 Oxycodone HCl (Roxicodone Immediate Rel Tab) 10 mg Q4H PRN PO 09/09/17 14:15 09/23/17 14:14
[2017-09-10] VITALS (9 sets, daily range): BP systolic 106–150; BP diastolic 57–74; PULSE 62–80; TEMP 36.9–37.2; O2SAT 96–99
[2017-09-10] MEDS: ACETAMINOPHEN/CODEINE 300/30MG TAB PO PRN (03:29)
[2017-09-10] MEDS: OXYCODONE HCL IR 5 MG TAB (IMMEDIATE RELEASE) PO PRN ×3 (04:23→17:43)
[2017-09-10] MEDS ORDERED: VANCOMYCIN TROUGH ONE (05:30)
[2017-09-10] MEDS: VANCOMYCIN IV 750 MG in SODIUM CHLORIDE 0.9% 250ML 250 ML IV SCH ×3 (05:54→22:01)
[2017-09-10 06:20] LABS: CREATININE 0.88 mg/dl (0.60-1.40)
[2017-09-10] MEDS: PIPERACILL/TAZOBAC IV 4.5 GM in D5W 100 ML IV SCH ×2 (07:48→16:51)
[2017-09-10] MEDS ORDERED: HYDROmorphone INJ 1 MG/ML SYR IV ONE (08:00)
--- NOTE | 2017-09-10 09:33 | Pharmacy Progress Note ---
Pharmacy Abx Dose Short Note Date of Service Sep 10, 2017. Assessment & Plan Assessment * 62 year old male receiving VANCOMYCIN + ZOSYN for R foot osteomyelitis in the setting of PVD, DM and HIV * Day # 9 of antimicrobial therapy * Pt is now s/p revision of R transmetatarsal amputation on 09/09 * Renal fxn appears stable Plan Vancomycin * Trough level of 19.1 mcg/mL is therapeutic * Continue dose of 750 mg IV every 8 hours * Goal trough level for bone/joint infxn : 15 to 20 mcg/mL * Will repeat trough level in 48-72 hrs as we are near the upper end of our goal Pharmacy will continue to follow and will adjust dose/frequency as necessary. Thank you.
[2017-09-10] MEDS: FLUOXETINE HCL 20 MG CAP PO SCH (09:37)
[2017-09-10] MEDS: TRIZIVIR PO SCH ×2 (09:37→20:35)
[2017-09-10] MEDS: MAGNESIUM CHLORIDE 64MG DELAYED REL TAB PO SCH ×2 (09:37→20:36)
[2017-09-10] MEDS: MULTIVITAMIN TAB PO SCH (09:37)
[2017-09-10] MEDS: CARVEDILOL 6.25 MG TAB PO SCH ×2 (09:37→20:35)
--- NOTE | 2017-09-10 12:00 | Orthopedic Progress Note ---
Orthopedic Progress Note Date of Service Sep 10, 2017. Subjective Post OP Day: 1 Reports: complaints (pain in the operative foot. ) Additional Notes: Pt states he's been having pain in his foot today. Received IV med at 0800 and OxyIR at 1046. Pt not keeping the foot elevated at present time. States the foot is throbbing off and on. No other complaints. Objective calves soft nontender, dressing C/D/I, A&O x3, hemovac drainage (minimal) Date Time Temp Pulse Resp B/P (MAP) Pulse Ox O2 Delivery O2 Flow Rate FiO2 09/10/17 10:44 80 16 106/57 (73) 99 Room Air 09/10/17 09:36 79 148/74 (98) 09/10/17 07:35 99 Room Air 09/10/17 07:02 37.0 75 16 126/68 (87) 98 Room Air 09/10/17 03:16 37.0 75 16 122/69 (86) 99 Room Air 09/09/17 23:35 Room Air 09/09/17 23:34 37.0 71 14 120/64 (82) 99 Room Air 09/09/17 21:14 76 156/72 (100) 09/09/17 19:13 37.0 89 18 103/65 (78) 98 Room Air 09/09/17 17:38 36.8 77 18 121/68 (85) 99 Room Air 09/09/17 16:44 36.4 72 18 113/67 (82) 99 Room Air 09/09/17 16:00 Room Air 09/09/17 15:40 36.4 69 18 147/79 (101) 100 Room Air 09/09/17 15:16 36.5 77 18 143/72 (95) 100 Room Air 09/09/17 14:40 100 Room Air 09/09/17 14:40 36.5 76 18 150/77 (101) 100 Room Air 09/09/17 14:40 Room Air 09/09/17 14:25 65 16 151/84 100 Room Air 09/09/17 14:15 36.4 64 16 162/84 100 Room Air 09/09/17 14:05 58 16 196/91 100 Room Air 09/09/17 13:55 51 16 220/101 100 Oxymask 10 8/3/18 13:45 54 16 215/104 100 Oxymask 10 09/09/17 13:35 36.3 70 16 198/96 99 Oxymask 10 Assessment & Plan Assessment: POD 1 Revision TMA Plan: Continue OOB heel down to balance only Plan for dressing change tomorrow. Toradol added for pain control Inhouse Planning Pain Management: Dilaudid, PO Tylenol, Oxy IR
[2017-09-10] MEDS: HYDROmorphone INJ 1 MG/ML SYR IV PRN (14:03)
[2017-09-10] MEDS: SODIUM CHLORIDE 0.9% 1000ML 1,000 ML IV SCH (18:27)
[2017-09-10] MEDS: KETOROLAC TROMETHAMINE 30 MG/ML VIAL IV PRN (18:31)
--- NOTE | 2017-09-10 22:00 | Progress Note ---
Medicine Progress Note Date & Time of Visit: Sep 10, 2017 at 08:40 . Subjective CC: Follow-up visit for osteomyelitis right foot and other problems. HPI: Revision of right transmetatarsal amputation done 09/09. Having postop pain not relieved by oxycodone. ROS: General- no fever, no chills Resp- no cough; no shortness of breath Cardiac- no chest pain, no edema GI- no nausea, no vomiting, no diarrhea, no constipation - no dysuria . Objective Last 8 Hrs Date Time Temp Pulse Resp B/P (MAP) Pulse Ox O2 Delivery O2 Flow Rate FiO2 09/10/17 20:33 70 132/72 (92) 09/10/17 16:00 Room Air 09/10/17 14:52 37.2 80 18 118/62 (80) 99 Room Air Physical Exam: General- lying in bed; no distress Lungs- clear to auscultation; no respiratory distress Cardiovascular- RRR; no murmur or gallop appreciated; no JVD; no pretibial edema Abdomen- + bowel sounds, soft, nontender Extremities- no cyanosis; no calf tenderness; right foot bandaged Neuro- alert, oriented Skin- warm & dry . Laboratory Results: Last 24 Hours Test 09/10/17 05:35 09/10/17 08:02 09/10/17 11:55 09/10/17 16:39 Creatinine 0.88 mg/dl Est Creatinine Clear Calc Drug Dose 72.0 ml/min Estimated GFR () 105.2 Estimated GFR (Non- 90.8 Vancomycin Level Trough 19.1 mcg/ml Bedside Glucose 165 mg/dl 131 mg/dl 139 mg/dl Test 09/10/17 20:18 Bedside Glucose 148 mg/dl Assessment & Plan SUSPECTED OSTEOMYELITIS Ortho input appreciated. ID & Vascular Surgery consulted. Revision right transmetatarsal amputation performed 09/09/17. Continue IV antibiotic therapy with vancomycin and piperacillin / tazobactam. PERIPHERAL VASCULAR DISEASE Records from [place] requested regarding prior vascular evaluations / interventions. Arterial duplex RLE 09/03/17: IMPRESSION: Normal study. 1. Stent within the right superficial femoral artery which is patent. 2. Moderate to moderate a significant small vessel arterial occlusive change bilaterally. 3. Small focal area of stenosis and occlusion Mid distal left superficial femoral artery with moderate reconstitution. Angiography RLE 09/07/17: iliac and common femoral artery- moderate disease superficial femoral artery- patent stent with moderate stenosis distally popliteal artery- patent until takeoff of the anterior tibial anterior tibial- occluded with reconstitution at the interosseous membrane peroneal artery- occluded with reconstitution in the upper third of the calf posterior tibial-occluded No interventions performed. HIV Patient does not know results of recent viral load or CD4. Old records requested. Continue Trizivir. DM TYPE 2 Hgb A1C = 6.2. Hold metformin during hospital stay. FBS today = 165. Insulin coverage as necessary. VTE PROPHYLAXIS Initially received SQ heparin, held for surgery. SCD's. Resume heparin when OK from surgical perspective. DISPOSITION To be determined; may need skilled care or inpatient rehab when medically stable. Primary Care follow-up with [facility]. Will need local follow-up with ID. . Current Inpatient Medications: Current Inpatient Medications Medications (Trade) Dose Ordered Sig/Sea Route Start Time Stop Time Status Last Admin Dose Admin Acetaminophen (Tylenol Tab) 650 mg Q4H PRN PO 09/02/17 23:15 10/02/17 23:14 09/05/17 00:13 650 MG Polyethylene (Miralax Powder Packet) 17 gm DAILY PRN PO 09/02/17 23:15 10/02/17 23:14 Ondansetron HCl (Zofran Inj) 4 mg Q6H PRN IV 09/02/17 23:15 10/02/17 23:14 Heparin Sodium (Porcine) (Heparin Sq 5000 Unit/0.5ml) 5,000 unit Q12H SQ 09/03/17 09:00 10/03/17 08:59 Future Hold 09/06/17 21:40 5,000 UNIT Carvedilol (Coreg Tab) 6.25 mg Q12 PO 09/03/17 09:00 10/03/17 08:59 09/10/17 20:35 6.25 MG Fluoxetine HCl (Prozac Cap) 20 mg DAILY PO 09/03/17 09:00 10/03/17 08:59 09/10/17 09:37 20 MG Multivitamins (Multivitamin Tab) 1 tab DAILY PO 09/03/17 09:00 10/03/17 08:59 09/10/17 09:37 1 TAB Miscellaneous Information (Order Awaiting Action) 1 ea QS N/A 09/03/17 08:00 8/27/18 07:59 Vancomycin HCl (Consult) 1 ea UD PRN N/A 09/02/17 23:15 10/02/17 23:14 Miscellaneous Information (Consult) 1 ea UD PRN N/A 09/02/17 23:15 10/02/17 23:14 Sodium Chloride 1,000 ml @ 50 mls/hr Q20H IV 09/02/17 23:59 10/02/17 23:58 09/10/17 18:27 50 MLS/HR Piperacillin Sod/ Tazobactam Sod 4.5 gm/Dextrose 120 ml @ 30 mls/hr Q8H IV 09/03/17 08:00 10/15/17 07:59 09/10/17 16:51 30 MLS/HR Magnesium Chloride (Slow-Mag Tab) 64 mg BID PO 09/04/17 21:00 10/04/17 20:59 09/10/17 20:36 64 MG Non-Formulary Medication (Non-Formulary Patient'S Own Med) 1 ea Q12 PO 09/05/17 09:00 10/05/17 08:59 09/10/17 20:35 1 EA Vancomycin HCl 750 mg/Sodium Chloride 265 ml @ 125 mls/hr Q8H IV 09/05/17 22:00 10/17/17 21:59 09/10/17 14:01 125 MLS/HR Oxycodone HCl (Roxicodone Immediate Rel Tab) 5 mg Q4H PRN PO 09/09/17 14:15 09/23/17 14:14 Oxycodone HCl (Roxicodone Immediate Rel Tab) 10 mg Q4H PRN PO 09/09/17 14:15 09/23/17 14:14 09/10/17 17:43 10 MG Hydromorphone HCl (Dilaudid Inj) 1 mg Q4H PRN IV 09/10/17 09:45 09/24/17 09:44 09/10/17 14:03 1 MG Ketorolac Tromethamine (Toradol Inj) 30 mg Q6H PRN IV 09/10/17 12:00 09/15/17 11:59 09/10/17 18:31 30 MG
[2017-09-10] MEDS ORDERED: CARBOHYDRATES FOR HYPOGLYCEMIA PO PRN (22:15)
[2017-09-10] MEDS ORDERED: GLUCOSE 10 TABS/TUBE PO PRN (22:15)
[2017-09-10] MEDS ORDERED: DEXTROSE 50% 50 ML SYR IV PRN (22:15)
[2017-09-10] MEDS ORDERED: GLUCOSE 40% GEL 15 GM TUBE PO PRN (22:15)
[2017-09-10] MEDS ORDERED: GLUCAGON FOR INJ 1 MG VIAL IM PRN (22:15)
[2017-09-11] MEDS: PIPERACILL/TAZOBAC IV 4.5 GM in D5W 100 ML IV SCH ×4 (00:06→23:41)
[2017-09-11] MEDS: VANCOMYCIN IV 750 MG in SODIUM CHLORIDE 0.9% 250ML 250 ML IV SCH ×3 (06:03→21:33)
[2017-09-11 06:12] LABS: HEMATOCRIT 22.8 % (42-52); HEMOGLOBIN 7.7 g/dL (14.0-18.0); MEAN CELL VOLUME 103.2 fL (80-100); MEAN CORPUSCULAR HEMOGLOBIN 34.8 pg (25-34); MEAN CORPUSCULAR HGB CONC 33.8 g/dl (32-36); MEAN PLATELET VOLUME 8.4 fL (7.4-10.4); PLATELET COUNT 207 K/uL (130-400); RED CELL DISTRIBUTION WIDTH CV 14.6 % (11.5-14.5); RED CELL DISTRIBUTION WIDTH SD 55.2 fL (36.4-46.3); WHITE BLOOD COUNT 6.26 K/uL (4.8-10.8)
[2017-09-11 06:48] LABS: CALCIUM 8.2 mg/dl (8.5-10.1); CREATININE 0.87 mg/dl (0.60-1.40); POTASSIUM 4.4 mmol/L (3.5-5.1)
[2017-09-11 07:37] VITALS: BP 131/71; PULSE 71; TEMP 37.4; O2SAT 92
[2017-09-11] MEDS: INSULIN ASPART 100 UNITS/ML 3 ML PEN SC SCH ×4 (08:00→21:00)
[2017-09-11] MEDS: CARVEDILOL 6.25 MG TAB PO SCH ×2 (08:56→21:29)
[2017-09-11] MEDS: FLUOXETINE HCL 20 MG CAP PO SCH (08:56)
[2017-09-11] MEDS: MAGNESIUM CHLORIDE 64MG DELAYED REL TAB PO SCH ×2 (08:56→21:29)
[2017-09-11] MEDS: MULTIVITAMIN TAB PO SCH (08:56)
[2017-09-11] MEDS: TRIZIVIR PO SCH ×2 (08:57→21:29)
[2017-09-11] MEDS: OXYCODONE HCL IR 5 MG TAB (IMMEDIATE RELEASE) PO PRN ×4 (09:01→21:38)
--- NOTE | 2017-09-11 10:25 | Orthopedic Progress Note ---
Orthopedic Progress Note Date of Service Sep 11, 2017. Subjective Post OP Day: 2 Reports: feeling well Additional Notes: Pain control is adequate. No new complaints. Objective calves soft nontender, incision C/D/I, A&O x3 Dressing removed. Drain removed without difficulty. Wound appears benign. No overt drainage. Wound approximated. No overt erythema. Redressed with adaptic /4x4's/ABD and kerlix. Date Time Temp Pulse Resp B/P (MAP) Pulse Ox O2 Delivery O2 Flow Rate FiO2 09/11/17 07:37 37.4 71 16 131/71 (91) 92 Room Air 09/10/17 23:30 96 Room Air 10.0 09/10/17 23:08 36.9 62 14 150/71 (97) 96 Room Air 09/10/17 20:33 70 132/72 (92) 09/10/17 16:00 Room Air 09/10/17 14:52 37.2 80 18 118/62 (80) 99 Room Air 09/10/17 10:44 80 16 106/57 (73) 99 Room Air Laboratory Results 24 Hours: Test 09/11/17 05:55 09/11/17 09:35 Hematocrit 22.8 % Hemoglobin 7.7 g/dL Assessment & Plan Assessment: POD 2 Revision TMA Plan: Continue OOB heel down to balance only Daily dressing changes Inhouse Planning Pain Management: Dilaudid, PO Tylenol, Oxy IR
[2017-09-11] MEDS: KETOROLAC TROMETHAMINE 30 MG/ML VIAL IV PRN (10:42)
[2017-09-11 10:48] LABS: HEMATOCRIT 22.3 % (42-52); HEMOGLOBIN 7.6 g/dL (14.0-18.0)
[2017-09-11 11:14] LABS: TRANSFERRIN 156 mg/dl (200-360)
[2017-09-11] MEDS: HYDROmorphone INJ 1 MG/ML SYR IV PRN (11:18)
[2017-09-11] MEDS: SODIUM CHLORIDE 0.9% 1000ML 1,000 ML IV SCH (12:43)
[2017-09-11 15:05] VITALS: BP 116/68; PULSE 71; TEMP 36.9; O2SAT 92
--- NOTE | 2017-09-11 20:56 | Progress Note ---
Medicine Progress Note Date & Time of Visit: Sep 11, 2017 at 11:20 . Subjective CC: Follow-up visit for osteomyelitis right foot and other problems. HPI: Revision of right transmetatarsal amputation done 09/09. Still having postop pain. Infiltrated IV left arm. ROS: General- no fever, no chills Resp- no cough; no shortness of breath Cardiac- no chest pain, no edema GI- no nausea, no vomiting, no diarrhea, no constipation - no dysuria . Objective Last 8 Hrs Date Time Temp Pulse Resp B/P (MAP) Pulse Ox O2 Delivery O2 Flow Rate FiO2 09/11/17 16:37 Room Air 09/11/17 15:05 36.9 71 16 116/68 84 92 Physical Exam: General- lying in bed; no distress Lungs- clear to auscultation; no respiratory distress Cardiovascular- RRR; no murmur or gallop appreciated; no JVD; no pretibial edema Abdomen- + bowel sounds, soft, nontender Extremities- no cyanosis; no calf tenderness; right foot bandaged Neuro- alert, oriented Skin- warm & dry . Laboratory Results: Last 24 Hours Test 09/11/17 05:55 09/11/17 08:06 09/11/17 09:35 09/11/17 12:11 White Blood Count 6.26 K/uL Red Blood Count 2.21 M/uL Hemoglobin 7.7 g/dL 7.6 g/dL Hematocrit 22.8 % 22.3 % Mean Corpuscular Volume 103.2 fL Mean Corpuscular Hemoglobin 34.8 pg Mean Corpuscular Hemoglobin Concent 33.8 g/dl RDW Standard Deviation 55.2 fL RDW Coefficient of Variation 14.6 % Platelet Count 207 K/uL Mean Platelet Volume 8.4 fL Sodium Level 139 mmol/L Potassium Level 4.4 mmol/L Chloride Level 108 mmol/L Carbon Dioxide Level 25 mmol/L Anion Gap 6.0 mmol/L Blood Urea Nitrogen 14 mg/dl Creatinine 0.87 mg/dl Est Creatinine Clear Calc Drug Dose 72.8 ml/min Estimated GFR () 105.7 Estimated GFR (Non- 91.2 BUN/Creatinine Ratio 16.6 Random Glucose 122 mg/dl Calcium Level 8.2 mg/dl Bedside Glucose 138 mg/dl 122 mg/dl Iron Level 36 mcg/dl Total Iron Binding Capacity 197 mcg/dl Transferrin 156 mg/dl Transferrin % Saturation 16 % Vitamin B12 Level 605 pg/mL Folate 14.87 ng/mL Test 09/11/17 16:54 09/11/17 20:33 Bedside Glucose 112 mg/dl 148 mg/dl Assessment & Plan SUSPECTED OSTEOMYELITIS Ortho input appreciated. ID & Vascular Surgery consulted. Revision right transmetatarsal amputation performed 09/09/17. Continue IV antibiotic therapy with vancomycin and piperacillin / tazobactam- DC when OK with ID and Ortho. PERIPHERAL VASCULAR DISEASE Records from [place] requested regarding prior vascular evaluations / interventions. Arterial duplex RLE 09/03/17: IMPRESSION: Normal study. 1. Stent within the right superficial femoral artery which is patent. 2. Moderate to moderate a significant small vessel arterial occlusive change bilaterally. 3. Small focal area of stenosis and occlusion Mid distal left superficial femoral artery with moderate reconstitution. Angiography RLE 09/07/17: iliac and common femoral artery- moderate disease superficial femoral artery- patent stent with moderate stenosis distally popliteal artery- patent until takeoff of the anterior tibial anterior tibial- occluded with reconstitution at the interosseous membrane peroneal artery- occluded with reconstitution in the upper third of the calf posterior tibial-occluded No interventions performed. HIV Patient does not know results of recent viral load or CD4. Old records requested. Continue Trizivir. DM TYPE 2 Hgb A1C = 6.2. Hold metformin during hospital stay. FBS today = 138. Insulin coverage as necessary. ANEMIA Hgb 13.3 --> 10.5 preop --> 7.7 postop. No overt GI bleeding. Hemodynamically stable. Type and cross pRBC's. No need for transfusion at this time. Check Fe studies, B12, folate. Check stool for OB. Follow H/H. VTE PROPHYLAXIS Initially received SQ heparin, held for surgery. SCD's. Resume heparin when OK from surgical perspective and GI bleeding ruled out. DISPOSITION Expect need for skilled care or inpatient rehab when medically stable. Primary Care follow-up with [facility]. Will need follow-up with ID for HIV. . Current Inpatient Medications: Current Inpatient Medications Medications (Trade) Dose Ordered Sig/Sea Route Start Time Stop Time Status Last Admin Dose Admin Acetaminophen (Tylenol Tab) 650 mg Q4H PRN PO 09/02/17 23:15 10/02/17 23:14 09/05/17 00:13 650 MG Polyethylene (Miralax Powder Packet) 17 gm DAILY PRN PO 09/02/17 23:15 10/02/17 23:14 Ondansetron HCl (Zofran Inj) 4 mg Q6H PRN IV 09/02/17 23:15 10/02/17 23:14 Heparin Sodium (Porcine) (Heparin Sq 5000 Unit/0.5ml) 5,000 unit Q12H SQ 09/03/17 09:00 10/03/17 08:59 Future Hold 09/06/17 21:40 5,000 UNIT Carvedilol (Coreg Tab) 6.25 mg Q12 PO 09/03/17 09:00 10/03/17 08:59 09/11/17 08:56 6.25 MG Fluoxetine HCl (Prozac Cap) 20 mg DAILY PO 09/03/17 09:00 10/03/17 08:59 09/11/17 08:56 20 MG Multivitamins (Multivitamin Tab) 1 tab DAILY PO 09/03/17 09:00 10/03/17 08:59 09/11/17 08:56 1 TAB Miscellaneous Information (Order Awaiting Action) 1 ea QS N/A 09/03/17 08:00 10/03/17 07:59 Vancomycin HCl (Consult) 1 ea UD PRN N/A 09/02/17 23:15 10/02/17 23:14 Miscellaneous Information (Consult) 1 ea UD PRN N/A 09/02/17 23:15 10/02/17 23:14 Sodium Chloride 1,000 ml @ 50 mls/hr Q20H IV 09/02/17 23:59 10/02/17 23:58 09/11/17 12:43 50 MLS/HR Piperacillin Sod/ Tazobactam Sod 4.5 gm/Dextrose 120 ml @ 30 mls/hr Q8H IV 09/03/17 08:00 10/15/17 07:59 09/11/17 16:43 30 MLS/HR Magnesium Chloride (Slow-Mag Tab) 64 mg BID PO 09/04/17 21:00 10/04/17 20:59 09/11/17 08:56 64 MG Non-Formulary Medication (Non-Formulary Patient'S Own Med) 1 ea Q12 PO 09/05/17 09:00 8/29/18 08:59 09/11/17 08:57 1 EA Vancomycin HCl 750 mg/Sodium Chloride 265 ml @ 125 mls/hr Q8H IV 09/05/17 22:00 10/17/17 21:59 09/11/17 13:33 125 MLS/HR Oxycodone HCl (Roxicodone Immediate Rel Tab) 5 mg Q4H PRN PO 09/09/17 14:15 09/23/17 14:14 Oxycodone HCl (Roxicodone Immediate Rel Tab) 10 mg Q4H PRN PO 09/09/17 14:15 09/23/17 14:14 09/11/17 15:03 10 MG Hydromorphone HCl (Dilaudid Inj) 1 mg Q4H PRN IV 09/10/17 09:45 09/24/17 09:44 09/11/17 11:18 1 MG Ketorolac Tromethamine (Toradol Inj) 30 mg Q6H PRN IV 09/10/17 12:00 09/15/17 11:59 09/11/17 10:42 30 MG Insulin Aspart (novoLOG ASPART) SLIDING SCALE G... ACHS SC 09/11/17 08:00 10/11/17 07:59 Glucose (Glucose 40% Gel) 15-30 GRAMS 15 GRAMS... UD PRN PO 09/10/17 22:15 10/10/17 22:14 Glucose (Glucose Chew Tab) 4-8 Tablets 4 Tabl... UD PRN PO 09/10/17 22:15 10/10/17 22:14 Dextrose (Dextrose 50% 50ML Syringe) 25-50ML 25ML FOR ... UD PRN IV 09/10/17 22:15 10/10/17 22:14 Glucagon (Glucagon Inj) 1 mg UD PRN IM 09/10/17 22:15 10/10/17 22:14 Carbohydrates (Carbohydrates For Hypoglycemia) 15-30 GRAMS 15 grams if BSG 54-69... UD PRN PO 09/10/17 22:15 10/10/17 22:14
[2017-09-11 21:26] VITALS: BP 114/67; PULSE 65
[2017-09-11 23:00] VITALS: BP 142/76; PULSE 67; TEMP 36.9; O2SAT 98
[2017-09-11 23:30] VITALS: O2SAT 98
[2017-09-12] VITALS (9 sets, daily range): BP systolic 142–172; BP diastolic 61–88; PULSE 54–76; TEMP 36.9–37.3; O2SAT 97–99
[2017-09-12] MEDS ORDERED: VANCOMYCIN TROUGH ONE (05:30)
[2017-09-12 06:04] LABS: HEMATOCRIT 21.2 % (42-52); HEMOGLOBIN 7.2 g/dL (14.0-18.0); MEAN CELL VOLUME 103.9 fL (80-100); MEAN CORPUSCULAR HEMOGLOBIN 35.3 pg (25-34); MEAN PLATELET VOLUME 8.5 fL (7.4-10.4); PLATELET COUNT 212 K/uL (130-400); RED CELL DISTRIBUTION WIDTH CV 14.5 % (11.5-14.5); RED CELL DISTRIBUTION WIDTH SD 54.8 fL (36.4-46.3); WHITE BLOOD COUNT 5.19 K/uL (4.8-10.8)
[2017-09-12 06:23] LABS: CREATININE 0.93 mg/dl (0.60-1.40); POTASSIUM 4.1 mmol/L (3.5-5.1)
[2017-09-12] MEDS: VANCOMYCIN IV 750 MG in SODIUM CHLORIDE 0.9% 250ML 250 ML IV SCH (06:36)
[2017-09-12] MEDS: INSULIN ASPART 100 UNITS/ML 3 ML PEN SC SCH ×4 (08:00→20:57)
--- NOTE | 2017-09-12 08:14 | Anesthesiology Progress Note ---
Anesthesia Post Op Note Date & Time Sep 12, 2017 at 08:14 Vital Signs Vital Signs Past 12 Hours Date Time Temp Pulse Resp B/P (MAP) Pulse Ox O2 Delivery O2 Flow Rate FiO2 09/12/17 07:34 37.1 61 16 149/61 (90) 98 Room Air 09/11/17 23:30 98 Room Air 10.0 09/11/17 23:00 36.9 67 16 142/76 (98) 98 Room Air 09/11/17 21:26 65 114/67 (83) Notes Mental Status: alert / awake / arousable, participated in evaluation Pt Amnestic to Procedure: Yes Nausea / Vomiting: adequately controlled Pain: adequately controlled Airway Patency, RR, SpO2: stable & adequate BP & HR: stable & adequate Hydration State: stable & adequate Anesthetic Complications: no major complications apparent
--- NOTE | 2017-09-12 09:01 | Progress Note ---
Medicine Progress Note Date & Time of Visit: Sep 12, 2017 at 08:57. Subjective seen resting in bed, comfortable, eating an orange introduced myself and i asked patient how he was doing, patient replied, "how do you think I look like?" then he followed with, "State your case, what is your plan for me?" I explained to the patient that I need to ask him a few questions as part of my evaluation so I can make appropriate recommendations and plan of care patient then agreed states he feels fine denies chest pain, dyspnea, dizziness no hematuria, melena/hematochezia denies other symptoms Objective Last 8 Hrs Date Time Temp Pulse Resp B/P (MAP) Pulse Ox O2 Delivery O2 Flow Rate FiO2 09/12/17 07:34 37.1 61 16 149/61 (90) 98 Room Air Physical Exam: General- oriented x 3, not in distress, speaks in sentences with no effort Head- atraumatic Eyes- anicteric ENT- oropharynx clear Neck- supple, no JVD Lungs- clear breath sounds bilaterally, no rales/wheezes Heart- regular rhythm; no murmur, normal rate Abdomen- normal bowel sounds, soft, nontender Extremities- right foot with heavy dressing in place, no calf tenderness/edema left leg essentially normal Neuro- alert, oriented x 3; no gross focal deficits Skin- warm & dry Laboratory Results: Last 24 Hours Test 09/11/17 09:35 09/11/17 12:11 09/11/17 16:54 09/11/17 20:33 Hemoglobin 7.6 g/dL Hematocrit 22.3 % Iron Level 36 mcg/dl Total Iron Binding Capacity 197 mcg/dl Transferrin 156 mg/dl Transferrin % Saturation 16 % Vitamin B12 Level 605 pg/mL Folate 14.87 ng/mL Bedside Glucose 122 mg/dl 112 mg/dl 148 mg/dl Test 09/12/17 01:20 09/12/17 05:30 09/12/17 08:02 Stool Occult Blood NEGATIVE White Blood Count 5.19 K/uL Red Blood Count 2.04 M/uL Hemoglobin 7.2 g/dL Hematocrit 21.2 % Mean Corpuscular Volume 103.9 fL Mean Corpuscular Hemoglobin 35.3 pg Mean Corpuscular Hemoglobin Concent 34.0 g/dl RDW Standard Deviation 54.8 fL RDW Coefficient of Variation 14.5 % Platelet Count 212 K/uL Mean Platelet Volume 8.5 fL Sodium Level 139 mmol/L Potassium Level 4.1 mmol/L Chloride Level 110 mmol/L Carbon Dioxide Level 24 mmol/L Anion Gap 5.0 mmol/L Blood Urea Nitrogen 15 mg/dl Creatinine 0.93 mg/dl Est Creatinine Clear Calc Drug Dose 68.1 ml/min Estimated GFR () 100.2 Estimated GFR (Non- 86.5 BUN/Creatinine Ratio 15.7 Random Glucose 112 mg/dl Calcium Level 8.0 mg/dl Vancomycin Level Trough 22.7 mcg/ml Bedside Glucose 135 mg/dl Assessment & Plan SUSPECTED OSTEOMYELITIS, RIGHT FOOT Revision right transmetatarsal amputation performed 09/09/17. Per Ortho: Continue OOB heel down to balance only Daily dressing changes Continue IV vancomycin and piperacillin / tazobactam awaiting ID recommendations regarding antibiotics ID & Vascular Surgery consulted. 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 Arterial duplex RLE 09/03/17: IMPRESSION: Normal study. 1. Stent within the right superficial femoral artery which is patent. 2. Moderate to moderate a significant small vessel arterial occlusive change bilaterally. 3. Small focal area of stenosis and occlusion Mid distal left superficial femoral artery with moderate reconstitution. Angiography RLE 09/07/17: iliac and common femoral artery- moderate disease superficial femoral artery- patent stent with moderate stenosis distally popliteal artery- patent until takeoff of the anterior tibial anterior tibial- occluded with reconstitution at the interosseous membrane peroneal artery- occluded with reconstitution in the upper third of the calf posterior tibial-occluded No interventions performed. already on Plavix ANEMIA, IRON DEFICIENCY, POSSIBLY FROM ACUTE BLOOD LOSS Hgb 13.3 --> 10.5 preop --> 7.7 postop. No overt GI bleeding. Hemodynamically stable. 2 units pRBC ordered FOBT negative Iron 35 FeSO4 ordered monitor HIV Patient does not know results of recent viral load or CD4. Old records requested. Continue Trizivir. DM TYPE 2 Hgb A1C = 6.2. Hold metformin during hospital stay. FBS today = 138. Insulin coverage as necessary. VTE PROPHYLAXIS Initially received SQ heparin, held for surgery. SCD's. Resume heparin when OK from surgical perspective and GI bleeding ruled out. DISPOSITION Expect need for skilled care or inpatient rehab when medically stable--> explained to patient, declining PT/OT at this time, explained this is necessary to determine how stable he is with standing, walking, etc. Primary Care follow-up with [facility]. Will need follow-up with ID for HIV. explained to patient at length regarding his medical conditions and plan of care all questions answered he is comfortable and agreeable with plan of care Current Inpatient Medications: Current Inpatient Medications Medications (Trade) Dose Ordered Sig/Sea Route Start Time Stop Time Status Last Admin Dose Admin Acetaminophen (Tylenol Tab) 650 mg Q4H PRN PO 09/02/17 23:15 10/02/17 23:14 09/05/17 00:13 650 MG Polyethylene (Miralax Powder Packet) 17 gm DAILY PRN PO 09/02/17 23:15 10/02/17 23:14 Ondansetron HCl (Zofran Inj) 4 mg Q6H PRN IV 09/02/17 23:15 10/02/17 23:14 Heparin Sodium (Porcine) (Heparin Sq 5000 Unit/0.5ml) 5,000 unit Q12H SQ 09/03/17 09:00 10/03/17 08:59 Future Hold 09/06/17 21:40 5,000 UNIT Carvedilol (Coreg Tab) 6.25 mg Q12 PO 09/03/17 09:00 10/03/17 08:59 09/11/17 21:29 6.25 MG Fluoxetine HCl (Prozac Cap) 20 mg DAILY PO 09/03/17 09:00 10/03/17 08:59 09/11/17 08:56 20 MG Multivitamins (Multivitamin Tab) 1 tab DAILY PO 09/03/17 09:00 10/03/17 08:59 09/11/17 08:56 1 TAB Miscellaneous Information (Order Awaiting Action) 1 ea QS N/A 09/03/17 08:00 10/03/17 07:59 Vancomycin HCl (Consult) 1 ea UD PRN N/A 09/02/17 23:15 10/02/17 23:14 Miscellaneous Information (Consult) 1 ea UD PRN N/A 09/02/17 23:15 10/02/17 23:14 Sodium Chloride 1,000 ml @ 50 mls/hr Q20H IV 09/02/17 23:59 10/02/17 23:58 09/11/17 12:43 50 MLS/HR Piperacillin Sod/ Tazobactam Sod 4.5 gm/Dextrose 120 ml @ 30 mls/hr Q8H IV 09/03/17 08:00 10/15/17 07:59 09/11/17 23:41 30 MLS/HR Magnesium Chloride (Slow-Mag Tab) 64 mg BID PO 09/04/17 21:00 10/04/17 20:59 09/11/17 21:29 64 MG Non-Formulary Medication (Non-Formulary Patient'S Own Med) 1 ea Q12 PO 09/05/17 09:00 10/05/17 08:59 09/11/17 21:29 1 EA Vancomycin HCl 750 mg/Sodium Chloride 265 ml @ 125 mls/hr Q8H IV 09/05/17 22:00 10/17/17 21:59 09/12/17 06:36 125 MLS/HR Oxycodone HCl (Roxicodone Immediate Rel Tab) 5 mg Q4H PRN PO 09/09/17 14:15 09/23/17 14:14 09/11/17 21:38 5 MG Oxycodone HCl (Roxicodone Immediate Rel Tab) 10 mg Q4H PRN PO 09/09/17 14:15 09/23/17 14:14 09/11/17 15:03 10 MG Hydromorphone HCl (Dilaudid Inj) 1 mg Q4H PRN IV 09/10/17 09:45 09/24/17 09:44 09/11/17 11:18 1 MG Ketorolac Tromethamine (Toradol Inj) 30 mg Q6H PRN IV 09/10/17 12:00 09/15/17 11:59 09/11/17 10:42 30 MG Insulin Aspart (novoLOG ASPART) SLIDING SCALE G... ACHS SC 09/11/17 08:00 10/11/17 07:59 Glucose (Glucose 40% Gel) 15-30 GRAMS 15 GRAMS... UD PRN PO 09/10/17 22:15 10/10/17 22:14 Glucose (Glucose Chew Tab) 4-8 Tablets 4 Tabl... UD PRN PO 09/10/17 22:15 10/10/17 22:14 Dextrose (Dextrose 50% 50ML Syringe) 25-50ML 25ML FOR ... UD PRN IV 09/10/17 22:15 10/10/17 22:14 Glucagon (Glucagon Inj) 1 mg UD PRN IM 09/10/17 22:15 10/10/17 22:14 Carbohydrates (Carbohydrates For Hypoglycemia) 15-30 GRAMS 15 grams if BSG 54-69... UD PRN PO 09/10/17 22:15 10/10/17 22:14 Ferrous Sulfate (Feosol Tab) 325 mg DAILY@1200 PO 09/12/17 12:00 10/12/17 11:59
[2017-09-12] MEDS: MAGNESIUM CHLORIDE 64MG DELAYED REL TAB PO SCH ×2 (09:05→20:53)
[2017-09-12] MEDS: FLUOXETINE HCL 20 MG CAP PO SCH (09:05)
[2017-09-12] MEDS: MULTIVITAMIN TAB PO SCH (09:05)
[2017-09-12] MEDS: TRIZIVIR PO SCH ×2 (09:05→20:53)
[2017-09-12] MEDS: CARVEDILOL 6.25 MG TAB PO SCH ×2 (09:06→20:53)
[2017-09-12] MEDS: PIPERACILL/TAZOBAC IV 4.5 GM in D5W 100 ML IV SCH ×3 (09:20→23:39)
--- NOTE | 2017-09-12 09:53 | Progress Note ---
Subjective Date of Service: Sep 12, 2017. Subjective pt tolerating abx. afebrile. wbc nml. remains on HAART, cd4 pending. wbc nml. blood cultures negative and final. no OR culture done, previous culture with [place] sensitive pseudomonas. Problem List Medical Problems: (1) Diabetic foot ulcer Status: Acute (2) Failure of outpatient treatment Status: Acute (3) Osteomyelitis of right foot Status: Acute (4) Skin wound from surgical incision Status: Acute Objective Vital Signs Date Time Temp Pulse Resp B/P (MAP) Pulse Ox O2 Delivery O2 Flow Rate FiO2 09/12/17 07:34 37.1 61 16 149/61 (90) 98 Room Air 09/11/17 23:30 98 Room Air 10.0 09/11/17 23:00 36.9 67 16 142/76 (98) 98 Room Air 09/11/17 21:26 65 114/67 (83) 09/11/17 16:37 Room Air 09/11/17 15:05 36.9 71 16 116/68 (84) 92 Physical Exam General Appearance: WD/WN, no apparent distress Eyes: EOMI Neck: supple Respiratory/Chest: normal breath sounds, no respiratory distress Extremities: no pedal edema Neurologic/Psychiatric: alert Skin: normal color Comments: dressing c/d/i Laboratory Results Item Value Date Time Blood Culture - Final Complete 09/02/172133 Blood NO GROWTH Blood Culture - Final Complete 09/02/17 214 Blood NO GROWTH Gram Stain - Final Complete 08/02/17 1540 Ulcer Foot Right Last 24 Hours Test 09/11/17 12:11 09/11/17 16:54 09/11/17 20:33 09/12/17 01:20 Bedside Glucose 122 mg/dl 112 mg/dl 148 mg/dl Stool Occult Blood NEGATIVE Test 09/12/17 05:30 09/12/17 08:02 White Blood Count 5.19 K/uL Red Blood Count 2.04 M/uL Hemoglobin 7.2 g/dL Hematocrit 21.2 % Mean Corpuscular Volume 103.9 fL Mean Corpuscular Hemoglobin 35.3 pg Mean Corpuscular Hemoglobin Concent 34.0 g/dl RDW Standard Deviation 54.8 fL RDW Coefficient of Variation 14.5 % Platelet Count 212 K/uL Mean Platelet Volume 8.5 fL Sodium Level 139 mmol/L Potassium Level 4.1 mmol/L Chloride Level 110 mmol/L Carbon Dioxide Level 24 mmol/L Anion Gap 5.0 mmol/L Blood Urea Nitrogen 15 mg/dl Creatinine 0.93 mg/dl Est Creatinine Clear Calc Drug Dose 68.1 ml/min Estimated GFR () 100.2 Estimated GFR (Non- 86.5 BUN/Creatinine Ratio 15.7 Random Glucose 112 mg/dl Calcium Level 8.0 mg/dl Vancomycin Level Trough 22.7 mcg/ml Bedside Glucose 135 mg/dl Assessment and Plan (1) Osteomyelitis of right foot Assessment & Plan: can continue zosyn for now, will stop vanco. upon d/c can transition to po cipro, 4 weeks. will have continued followup with wound care post d/c. continue HAART. Problem Qualifiers (1) Osteomyelitis of right foot: Osteomyelitis type: unspecified type Qualified Codes: M86.9 - Osteomyelitis, unspecified
--- NOTE | 2017-09-12 10:55 | Orthopedic Progress Note ---
Orthopedic Progress Note Date of Service Sep 12, 2017. Subjective Post OP Day: 3 Reports: feeling well, pain controlled w PO medications, Denies: complaints Objective calves soft nontender, N/V intact, capillary refill less than 2 sec., incision C /D/I, A&O x3 No erythema. Transmetatarsal amputation site on the right foot is well approximated. No active bleeding or open areas. Date Time Temp Pulse Resp B/P (MAP) Pulse Ox O2 Delivery O2 Flow Rate FiO2 09/12/17 08:10 Room Air 09/12/17 07:34 37.1 61 16 149/61 (90) 98 Room Air 09/11/17 23:30 98 Room Air 10.0 09/11/17 23:00 36.9 67 16 142/76 (98) 98 Room Air 09/11/17 21:26 65 114/67 (83) 09/11/17 16:37 Room Air 09/11/17 15:05 36.9 71 16 116/68 (84) 92 Laboratory Results 24 Hours: Test 09/12/17 05:30 Hematocrit 21.2 % Hemoglobin 7.2 g/dL Assessment & Plan Assessment: POD #3 : Right foot revision transmetatarsal amputation including first, second, third, fourth, and fifth metatarsals Plan: Continue OOB heel down to balance only Daily dressing changes Ortho to sign off. Follow up in our office in 10-14 days. Inhouse Planning Pain Management: Dilaudid, PO Tylenol, Oxy IR
--- NOTE | 2017-09-12 10:56 | Consultant Recommendations ---
Administrative Tech Recommendations Date of Service Sep 12, 2017. Administrative Tech Recommendations ACTIVITY RECOMMENDATIONS: Limitations: Heel weight bearing only if able to tolerate. SPECIAL CARE INSTRUCTIONS: * Some drainage onto the dressing is normal and is no cause for alarm. * Some swelling is natural especially after walking. * When resting, keep your foot elevated above the level of your heart. * Call [facility] if you notice: -Increased drainage -Fever over 101 degrees F -Severe constant pain BANDAGE: * Daily dry dressing changes. May change dressing every other day if unable to change daily. * Keep bandage/cast dry at all times. PIN CARE: * Leave pins alone. * If pins come loose or fall out, notify physician. FOLLOW UP VISIT WITH DR. ELLIOTT If appointment is not already scheduled: Please call [facility] after you get home today to schedule a follow-up appointment for 10-[address] Elliott at .
[2017-09-12] MEDS: FERROUS SULFATE 325 MG TAB PO SCH (13:31)
[2017-09-12] MEDS: SODIUM CHLORIDE 0.9% 1000ML 1,000 ML IV SCH (16:58)
[2017-09-12] MEDS: OXYCODONE HCL IR 5 MG TAB (IMMEDIATE RELEASE) PO PRN (20:53)
[2017-09-12] MEDS: KETOROLAC TROMETHAMINE 30 MG/ML VIAL IV PRN (22:52)
[2017-09-13] MEDS: SODIUM CHLORIDE 0.9% 1000ML 1,000 ML IV SCH ×2 (05:22→23:49)
[2017-09-13 06:42] VITALS: BP 163/73; PULSE 55; TEMP 37; O2SAT 99
[2017-09-13 07:22] LABS: BASO % 0.4 %; BASO ABS # 0.02 K/uL (0-0.2); EOS % 2.4 %; EOS ABS # 0.13 K/uL (0-0.5); HEMATOCRIT 25.6 % (42-52); HEMOGLOBIN 8.8 g/dL (14.0-18.0); IG# 0.01 K/uL (0.00-0.02); LYMPH ABS # 1.17 K/uL (1.2-3.4); MEAN CELL VOLUME 100.8 fL (80-100); MEAN CORPUSCULAR HEMOGLOBIN 34.6 pg (25-34); MEAN CORPUSCULAR HGB CONC 34.4 g/dl (32-36); MEAN PLATELET VOLUME 8.7 fL (7.4-10.4); MONO % 9.8 %; MONO ABS # 0.52 K/uL (0.11-0.59); NEUT % 65.2 %; NEUT ABS # 3.47 K/uL (1.4-6.5); PLATELET COUNT 205 K/uL (130-400); RED CELL DISTRIBUTION WIDTH CV 17.1 % (11.5-14.5); RED CELL DISTRIBUTION WIDTH SD 62.6 fL (36.4-46.3); WHITE BLOOD COUNT 5.32 K/uL (4.8-10.8)
[2017-09-13] MEDS: PIPERACILL/TAZOBAC IV 4.5 GM in D5W 100 ML IV SCH ×3 (07:51→23:49)
[2017-09-13] MEDS: INSULIN ASPART 100 UNITS/ML 3 ML PEN SC SCH ×4 (08:00→20:56)
[2017-09-13] MEDS: TRIZIVIR PO SCH ×2 (08:37→20:57)
[2017-09-13] MEDS: FLUOXETINE HCL 20 MG CAP PO SCH (08:37)
[2017-09-13] MEDS: MULTIVITAMIN TAB PO SCH (08:38)
[2017-09-13 08:39] VITALS: BP 169/82; PULSE 63
[2017-09-13] MEDS: CARVEDILOL 6.25 MG TAB PO SCH ×2 (08:41→20:56)
[2017-09-13] MEDS: MAGNESIUM CHLORIDE 64MG DELAYED REL TAB PO SCH ×2 (08:41→20:58)
[2017-09-13] MEDS: FERROUS SULFATE 325 MG TAB PO SCH (12:59)
[2017-09-13 14:16] VITALS: BP 169/82; PULSE 63; TEMP 37; O2SAT 99
[2017-09-13] MEDS ORDERED: AMLODIPINE BESYLATE 5 MG TAB PO ONE (15:45)
[2017-09-13 15:47] VITALS: BP 182/76; PULSE 55; TEMP 36.8; O2SAT 100
[2017-09-13] MEDS: OXYCODONE HCL IR 5 MG TAB (IMMEDIATE RELEASE) PO PRN (17:59)
--- NOTE | 2017-09-13 20:38 | Progress Note ---
Medicine Progress Note Date & Time of Visit: Sep 13, 2017 at 20:27. Subjective seen resting in bed, comfortable states he feels fine today denies headache, dizziness, chest pain, dyspnea, palpitations denies pain on the left foot no other symptoms Objective Last 8 Hrs Date Time Temp Pulse Resp B/P (MAP) Pulse Ox O2 Delivery O2 Flow Rate FiO2 09/13/17 15:50 Room Air 09/13/17 15:47 36.8 55 18 182/76 (111) 100 Room Air 09/13/17 14:16 37.0 63 15 99 Room Air Physical Exam: General- oriented x 3, not in distress, speaks in sentences with no effort Eyes- anicteric Neck- no JVD Lungs- clearBS bilaterally Heart- regular rhythm; no murmur, normal rate Abdomen- normal bowel sounds, soft, nontender Extremities- right foot with heavy dressing in place no calf tenderness/edema left leg essentially normal Neuro- alert, oriented x 3; no gross focal deficits Skin- warm & dry Laboratory Results: Last 24 Hours Test 09/13/17 07:06 09/13/17 07:57 09/13/17 12:14 09/13/17 17:24 White Blood Count 5.32 K/uL Red Blood Count 2.54 M/uL Hemoglobin 8.8 g/dL Hematocrit 25.6 % Mean Corpuscular Volume 100.8 fL Mean Corpuscular Hemoglobin 34.6 pg Mean Corpuscular Hemoglobin Concent 34.4 g/dl Platelet Count 205 K/uL Mean Platelet Volume 8.7 fL Neutrophils (%) (Auto) 65.2 % Lymphocytes (%) (Auto) 22.0 % Monocytes (%) (Auto) 9.8 % Eosinophils (%) (Auto) 2.4 % Basophils (%) (Auto) 0.4 % Neutrophils # (Auto) 3.47 K/uL Lymphocytes # (Auto) 1.17 K/uL Monocytes # (Auto) 0.52 K/uL Eosinophils # (Auto) 0.13 K/uL Basophils # (Auto) 0.02 K/uL RDW Standard Deviation 62.6 fL RDW Coefficient of Variation 17.1 % Immature Granulocyte % (Auto) 0.2 % Immature Granulocyte # (Auto) 0.01 K/uL Red Blood Cell Morphology Unremarkable Bedside Glucose 139 mg/dl 116 mg/dl 146 mg/dl Assessment & Plan SUSPECTED OSTEOMYELITIS, RIGHT FOOT Revision right transmetatarsal amputation performed 09/09/17. Per Ortho: Continue OOB heel down to balance only Daily dressing changes Continue IV piperacillin / tazobactam has received IV Vanco upon discharge, plan to transition to Cipro BID x 4 weeks per ID follow up with [facility] in 1 week follow up with Ortho Dr. Osei in 1 week ID & Vascular Surgery consulted. 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 Arterial duplex RLE 09/03/17: IMPRESSION: Normal study. 1. Stent within the right superficial femoral artery which is patent. 2. Moderate to moderate a significant small vessel arterial occlusive change bilaterally. 3. Small focal area of stenosis and occlusion Mid distal left superficial femoral artery with moderate reconstitution. Angiography RLE 09/07/17: iliac and common femoral artery- moderate disease superficial femoral artery- patent stent with moderate stenosis distally popliteal artery- patent until takeoff of the anterior tibial anterior tibial- occluded with reconstitution at the interosseous membrane peroneal artery- occluded with reconstitution in the upper third of the calf posterior tibial-occluded No interventions performed. already on Plavix ANEMIA, IRON DEFICIENCY, POSSIBLY FROM ACUTE BLOOD LOSS Hgb 13.3 --> 10.5 preop --> 7.7 postop. No overt GI bleeding. Hemodynamically stable. 2 units pRBC ordered FOBT negative -- Hg improved to 8.8 no obvious bleeding today Iron 35 FeSO4 ordered monitor HYPERTENSION not at goal Amlodipine added continue Carvedilol monitor HIV Patient does not know results of recent viral load or CD4. Old records requested. Continue Trizivir. DM TYPE 2 Hgb A1C = 6.2. Hold metformin during hospital stay. FBS today = 138. Insulin coverage as necessary. VTE PROPHYLAXIS resume Heparin q12h DISPOSITION patient agreeable to transition to Rehab follow up with [facility] in 1 week follow up with Ortho Dr. Osei in 1 week Primary Care follow-up with [facility]. Will need follow-up with ID for HIV. explained to patient at length regarding his medical conditions and plan of care all questions answered he is comfortable and agreeable with plan of care Current Inpatient Medications: Current Inpatient Medications Medications (Trade) Dose Ordered Sig/Sea Route Start Time Stop Time Status Last Admin Dose Admin Acetaminophen (Tylenol Tab) 650 mg Q4H PRN PO 09/02/17 23:15 10/02/17 23:14 09/05/17 00:13 650 MG Polyethylene (Miralax Powder Packet) 17 gm DAILY PRN PO 09/02/17 23:15 10/02/17 23:14 Ondansetron HCl (Zofran Inj) 4 mg Q6H PRN IV 09/02/17 23:15 10/02/17 23:14 Heparin Sodium (Porcine) (Heparin Sq 5000 Unit/0.5ml) 5,000 unit Q12H SQ 09/03/17 09:00 10/03/17 08:59 Future Hold 09/06/17 21:40 5,000 UNIT Carvedilol (Coreg Tab) 6.25 mg Q12 PO 09/03/17 09:00 10/03/17 08:59 09/13/17 08:41 6.25 MG Fluoxetine HCl (Prozac Cap) 20 mg DAILY PO 09/03/17 09:00 10/03/17 08:59 09/13/17 08:37 20 MG Multivitamins (Multivitamin Tab) 1 tab DAILY PO 09/03/17 09:00 10/03/17 08:59 09/13/17 08:38 1 TAB Miscellaneous Information (Order Awaiting Action) 1 ea QS N/A 09/03/17 08:00 10/03/17 07:59 Miscellaneous Information (Consult) 1 ea UD PRN N/A 09/02/17 23:15 10/02/17 23:14 Sodium Chloride 1,000 ml @ 50 mls/hr Q20H IV 09/02/17 23:59 10/02/17 23:58 09/13/17 05:22 50 MLS/HR Piperacillin Sod/ Tazobactam Sod 4.5 gm/Dextrose 120 ml @ 30 mls/hr Q8H IV 09/03/17 08:00 10/15/17 07:59 09/13/17 16:00 30 MLS/HR Magnesium Chloride (Slow-Mag Tab) 64 mg BID PO 09/04/17 21:00 10/04/17 20:59 09/13/17 08:41 64 MG Non-Formulary Medication (Non-Formulary Patient'S Own Med) 1 ea Q12 PO 09/05/17 09:00 10/05/17 08:59 09/13/17 08:37 1 EA Oxycodone HCl (Roxicodone Immediate Rel Tab) 5 mg Q4H PRN PO 09/09/17 14:15 09/23/17 14:14 09/11/17 21:38 5 MG Oxycodone HCl (Roxicodone Immediate Rel Tab) 10 mg Q4H PRN PO 09/09/17 14:15 09/23/17 14:14 09/13/17 17:59 10 MG Hydromorphone HCl (Dilaudid Inj) 1 mg Q4H PRN IV 09/10/17 09:45 09/24/17 09:44 09/11/17 11:18 1 MG Ketorolac Tromethamine (Toradol Inj) 30 mg Q6H PRN IV 09/10/17 12:00 09/15/17 11:59 09/12/17 22:52 30 MG Insulin Aspart (novoLOG ASPART) SLIDING SCALE G... ACHS SC 09/11/17 08:00 10/11/17 07:59 09/13/17 18:07 3 UNITS Glucose (Glucose 40% Gel) 15-30 GRAMS 15 GRAMS... UD PRN PO 09/10/17 22:15 10/10/17 22:14 Glucose (Glucose Chew Tab) 4-8 Tablets 4 Tabl... UD PRN PO 09/10/17 22:15 10/10/17 22:14 Dextrose (Dextrose 50% 50ML Syringe) 25-50ML 25ML FOR ... UD PRN IV 09/10/17 22:15 10/10/17 22:14 Glucagon (Glucagon Inj) 1 mg UD PRN IM 09/10/17 22:15 10/10/17 22:14 Carbohydrates (Carbohydrates For Hypoglycemia) 15-30 GRAMS 15 grams if BSG 54-69... UD PRN PO 09/10/17 22:15 10/10/17 22:14 Ferrous Sulfate (Feosol Tab) 325 mg DAILY@1200 PO 09/12/17 12:00 10/12/17 11:59 09/13/17 12:59 325 MG Amlodipine Besylate (Norvasc Tab) 2.5 mg QAM PO 09/14/17 09:00 10/14/17 08:59
[2017-09-13] MEDS ORDERED: AMLODIPINE BESYLATE 5 MG TAB PO PRN (20:45)
[2017-09-13 20:55] VITALS: BP 168/81; PULSE 52
[2017-09-13] MEDS: HEPARIN SOD 5000 UNIT/0.5 ML CARP SQ SCH (21:21)
[2017-09-13 23:20] VITALS: BP 169/77; PULSE 54; TEMP 37.1; O2SAT 98
[2017-09-14 07:18] VITALS: BP 193/87; PULSE 60; TEMP 37.1; O2SAT 100
[2017-09-14 07:42] LABS: BASO % 0.2 %; BASO ABS # 0.01 K/uL (0-0.2); EOS ABS # 0.16 K/uL (0-0.5); HEMATOCRIT 27.3 % (42-52); HEMOGLOBIN 9.3 g/dL (14.0-18.0); IG# 0.01 K/uL (0.00-0.02); LYMPH % 20.1 %; LYMPH ABS # 1.07 K/uL (1.2-3.4); MEAN CORPUSCULAR HEMOGLOBIN 34.1 pg (25-34); MEAN CORPUSCULAR HGB CONC 34.1 g/dl (32-36); MEAN PLATELET VOLUME 8.5 fL (7.4-10.4); MONO % 11.7 %; MONO ABS # 0.62 K/uL (0.11-0.59); NEUT % 64.8 %; NEUT ABS # 3.45 K/uL (1.4-6.5); PLATELET COUNT 239 K/uL (130-400); RED CELL DISTRIBUTION WIDTH CV 16.6 % (11.5-14.5); RED CELL DISTRIBUTION WIDTH SD 60.2 fL (36.4-46.3); WHITE BLOOD COUNT 5.32 K/uL (4.8-10.8)
[2017-09-14] MEDS: PIPERACILL/TAZOBAC IV 4.5 GM in D5W 100 ML IV SCH (07:50)
[2017-09-14] MEDS: INSULIN ASPART 100 UNITS/ML 3 ML PEN SC SCH ×2 (08:00→12:00)
[2017-09-14] MEDS: TRIZIVIR PO SCH (08:56)
[2017-09-14] MEDS: MAGNESIUM CHLORIDE 64MG DELAYED REL TAB PO SCH (08:57)
[2017-09-14] MEDS: FLUOXETINE HCL 20 MG CAP PO SCH (08:57)
[2017-09-14] MEDS: CARVEDILOL 6.25 MG TAB PO SCH (08:58)
[2017-09-14] MEDS: MULTIVITAMIN TAB PO SCH (08:58)
[2017-09-14] MEDS: HEPARIN SOD 5000 UNIT/0.5 ML CARP SQ SCH (09:00)
[2017-09-14] MEDS ORDERED: AMLODIPINE BESYLATE 5 MG TAB PO SCH ×2 (09:00)
[2017-09-14 09:04] VITALS: BP 135/62; PULSE 60
[2017-09-14] MEDS ORDERED: CIPROFLOXACIN 500 MG TAB PO ONE (11:00)
--- NOTE | 2017-09-14 11:30 | Progress Note ---
Medicine Progress Note Date & Time of Visit: Sep 14, 2017 at 11:20. Subjective seen resting in bed, comfortable states he feels fine overall denies any pain no chest pain, dyspnea, palpitations, dizziness no other symptoms he is agreeable for discharge to Rehab today updated patient's sister with patient's permission- discussed with her at length regarding medical condition, plan of care she also agrees that patient needs to transition to Rehab all questions answered she is agreeable and comfortable with plan of care Objective Last 8 Hrs Date Time Temp Pulse Resp B/P (MAP) Pulse Ox O2 Delivery O2 Flow Rate FiO2 09/14/17 09:04 60 135/62 (86) 09/14/17 07:40 Room Air 09/14/17 07:18 37.1 60 16 193/87 (122) 100 Room Air Physical Exam: General- oriented x 3, not in distress, speaks in sentences with no effort Eyes- anicteric Neck- no JVD Lungs- clear breath sounds, no wheezing/rales bilaterally Heart- regular rhythm; no murmur, normal rate Abdomen- normal bowel sounds, soft, nontender Extremities- Right foot with heavy dressing in place no calf tenderness/edema Left leg essentially normal Neuro- alert, oriented x 3; no gross focal deficits Skin- warm & dry Laboratory Results: Last 24 Hours Test 09/13/17 12:14 09/13/17 17:24 09/13/17 20:45 09/14/17 07:28 Bedside Glucose 116 mg/dl 146 mg/dl 111 mg/dl White Blood Count 5.32 K/uL Red Blood Count 2.73 M/uL Hemoglobin 9.3 g/dL Hematocrit 27.3 % Mean Corpuscular Volume 100.0 fL Mean Corpuscular Hemoglobin 34.1 pg Mean Corpuscular Hemoglobin Concent 34.1 g/dl Platelet Count 239 K/uL Mean Platelet Volume 8.5 fL Neutrophils (%) (Auto) 64.8 % Lymphocytes (%) (Auto) 20.1 % Monocytes (%) (Auto) 11.7 % Eosinophils (%) (Auto) 3.0 % Basophils (%) (Auto) 0.2 % Neutrophils # (Auto) 3.45 K/uL Lymphocytes # (Auto) 1.07 K/uL Monocytes # (Auto) 0.62 K/uL Eosinophils # (Auto) 0.16 K/uL Basophils # (Auto) 0.01 K/uL RDW Standard Deviation 60.2 fL RDW Coefficient of Variation 16.6 % Immature Granulocyte % (Auto) 0.2 % Immature Granulocyte # (Auto) 0.01 K/uL Test 09/14/17 08:05 Bedside Glucose 134 mg/dl Assessment & Plan SUSPECTED OSTEOMYELITIS, RIGHT FOOT Revision right transmetatarsal amputation performed 09/09/17. Per Ortho: Continue OOB heel down to balance only Daily dressing changes Infectious Disease Service consulted Blood cultures negative given IV Vancomycin and piperacillin / tazobactam since 09/03/17 upon discharge, plan to transition to Ciprofloxacin BID x 4 weeks per ID follow up with [facility] in 1 week follow up with Ortho at [facility] -Dr. 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 1. Stent within the right superficial femoral artery which is patent. 2. Moderate to moderate a significant small vessel arterial occlusive change bilaterally. 3. Small focal area of stenosis and occlusion Mid distal left superficial femoral artery with moderate reconstitution. Angiography RLE 09/07/17: iliac and common femoral artery- moderate disease superficial femoral artery- patent stent with moderate stenosis distally popliteal artery- patent until takeoff of the anterior tibial anterior tibial- occluded with reconstitution at the interosseous membrane peroneal artery- occluded with reconstitution in the upper third of the calf posterior tibial-occluded No interventions performed. already on Plavix follow up with Vascular Surgery as outpatient ANEMIA, IRON DEFICIENCY, POSSIBLY FROM ACUTE BLOOD LOSS Hgb 13.3 --> 10.5 preop --> 7.7 postop. No overt GI bleeding. Hemodynamically stable. 2 units pRBC ordered FOBT negative -- Hg improved to 9.3 no obvious bleeding -- repeat CBC in 3 days monitor Hg specially while on Heparin SC for DVT prophylaxis Iron 35 FeSO4 ordered monitor HYPERTENSION not at goal Amlodipine added continue Carvedilol improved monitor BP daily HIV Patient does not know results of recent viral load or CD4. Old records requested. Continue Trizivir. follow up as outpatient DM TYPE 2 Hgb A1C = 6.2. Hold metformin during hospital stay. FBS today = 138. Insulin coverage as necessary. resume Metformin VTE PROPHYLAXIS resume Heparin q12h re-evaluated duration of heparin DISPOSITION patient agreeable to transition to Rehab follow up with [facility] in 1 week follow up with Ortho at [facility] -Dr. Osei in 1 week Primary Care follow-up with [facility]. Will need follow-up with ID for HIV. explained to patient at length regarding his medical conditions and plan of care all questions answered he is comfortable and agreeable with plan of care Current Inpatient Medications: Current Inpatient Medications Medications (Trade) Dose Ordered Sig/Sea Route Start Time Stop Time Status Last Admin Dose Admin Acetaminophen (Tylenol Tab) 650 mg Q4H PRN PO 09/02/17 23:15 10/02/17 23:14 09/05/17 00:13 650 MG Polyethylene (Miralax Powder Packet) 17 gm DAILY PRN PO 09/02/17 23:15 10/02/17 23:14 Ondansetron HCl (Zofran Inj) 4 mg Q6H PRN IV 09/02/17 23:15 10/02/17 23:14 Carvedilol (Coreg Tab) 6.25 mg Q12 PO 09/03/17 09:00 10/03/17 08:59 09/14/17 08:58 6.25 MG Fluoxetine HCl (Prozac Cap) 20 mg DAILY PO 09/03/17 09:00 10/03/17 08:59 09/14/17 08:57 20 MG Multivitamins (Multivitamin Tab) 1 tab DAILY PO 09/03/17 09:00 10/03/17 08:59 09/14/17 08:58 1 TAB Miscellaneous Information (Order Awaiting Action) 1 ea QS N/A 09/03/17 08:00 10/03/17 07:59 Magnesium Chloride (Slow-Mag Tab) 64 mg BID PO 09/04/17 21:00 10/04/17 20:59 09/14/17 08:57 64 MG Non-Formulary Medication (Non-Formulary Patient'S Own Med) 1 ea Q12 PO 09/05/17 09:00 10/05/17 08:59 09/14/17 08:56 1 EA Oxycodone HCl (Roxicodone Immediate Rel Tab) 5 mg Q4H PRN PO 09/09/17 14:15 09/23/17 14:14 09/11/17 21:38 5 MG Oxycodone HCl (Roxicodone Immediate Rel Tab) 10 mg Q4H PRN PO 09/09/17 14:15 09/23/17 14:14 09/13/17 17:59 10 MG Hydromorphone HCl (Dilaudid Inj) 1 mg Q4H PRN IV 09/10/17 09:45 09/24/17 09:44 09/11/17 11:18 1 MG Ketorolac Tromethamine (Toradol Inj) 30 mg Q6H PRN IV 09/10/17 12:00 09/15/17 11:59 09/12/17 22:52 30 MG Insulin Aspart (novoLOG ASPART) SLIDING SCALE G... ACHS SC 09/11/17 08:00 10/11/17 07:59 09/13/17 18:07 3 UNITS Glucose (Glucose 40% Gel) 15-30 GRAMS 15 GRAMS... UD PRN PO 09/10/17 22:15 10/10/17 22:14 Glucose (Glucose Chew Tab) 4-8 Tablets 4 Tabl... UD PRN PO 09/10/17 22:15 10/10/17 22:14 Dextrose (Dextrose 50% 50ML Syringe) 25-50ML 25ML FOR ... UD PRN IV 09/10/17 22:15 10/10/17 22:14 Glucagon (Glucagon Inj) 1 mg UD PRN IM 09/10/17 22:15 10/10/17 22:14 Carbohydrates (Carbohydrates For Hypoglycemia) 15-30 GRAMS 15 grams if BSG 54-69... UD PRN PO 09/10/17 22:15 10/10/17 22:14 Ferrous Sulfate (Feosol Tab) 325 mg DAILY@1200 PO 09/12/17 12:00 10/12/17 11:59 09/13/17 12:59 325 MG Heparin Sodium (Porcine) (Heparin Sq 5000 Unit/0.5ml) 5,000 unit Q12 SQ 09/13/17 21:00 10/13/17 20:59 09/13/17 21:21 5,000 UNIT Amlodipine Besylate (Norvasc Tab) 2.5 mg Q12H PRN PO 09/13/17 20:45 10/13/17 20:44 Amlodipine Besylate (Norvasc Tab) 5 mg QAM PO 09/14/17 09:00 10/14/17 08:59 09/14/17 08:58 5 MG Ciprofloxacin (Cipro Tab) 500 mg BID PO 09/14/17 21:00 10/26/17 20:59
[2017-09-14] MEDS ORDERED: FRRS300 PO (11:36)
[2017-09-14] MEDS ORDERED: NRV5 PO (11:36)
[2017-09-14] MEDS ORDERED: HPRIS5M SQ (11:36)
[2017-09-14] MEDS ORDERED: CIPR-255 PO (11:36)
[2017-09-14] MEDS ORDERED: RXC5 PO (11:36)
--- NOTE | 2017-09-14 11:46 | Discharge Instructions ---
Discharge Instructions Date of Service Sep 14, 2017. Admission Reason for Admission: Osteomyelitis Discharge Discharge Diagnosis / Problem: Right foot osteomyelitis Discharge Goals Goal(s): Diagnostic testing, Therapeutic intervention Activity Recommendations Activity Level: Assistance Required Therapies: Physical Therapy, Occupational Therapy Lifting Limitations: until after follow-up appointment Exercise/Sports Limitations: until after follow-up appointment Right heel weight bearing only if able to tolerate. Additional Information Patient informed of condition: Yes Advance Directives: No (Unknown) DNR: No (patient is a full code) Level of Care: Acute Rehab Communicable Disease: No Prognosis: Improving Instructions / Follow-Up Instructions / Follow-Up Continue OOB heel down to balance only Daily dressing changes transition to Ciprofloxacin BID x 4 weeks per ID follow up with [facility] in 1 week follow up with Ortho at [facility] -Dr. Elliott in 1 week Monitor blood pressure daily Please refer to accompanying hospital discharge summary for further details. Fall precautions. Aspiration precautions. Current Hospital Diet Patient's current hospital diet: Diabetes Type 2 Diet Discharge Diet Recommended Diet: AHA Diet (Heart Healthy), Diabetes Type 2 Diet Procedures Procedures Performed: Right Foot Transmetatarsal Amputation Revision Including First through Fifth metatarsals Pending Studies Studies pending at discharge: no Physician Orders On Transfer Special Precautions: Continue OOB heel down to balance only Daily dressing changes transition to Ciprofloxacin BID x 4 weeks per ID follow up with [facility] in 1 week follow up with Ortho at [facility] -Dr. Elliott in 1 week Monitor blood pressure daily Please refer to accompanying hospital discharge summary for further details. Fall precautions. Aspiration precautions. Laboratory Results Hemoglobin A1c Test 09/06/17 06:19 Range/Units Estimated Average Glucose 131 mg/dl Hemoglobin A1c 6.2 H 4.5-5.6 % Medical Emergencies . Who to Call and When: Medical Emergencies: If at any time you feel your situation is an emergency, please call 911 immediately. . Non-Emergent Contact Non-Emergency issues call your: Primary Care Provider, Surgeon (Dr. Elliott) Call Non-Emergent contact if: you have a fever, your pain is not controlled, your pain is worsening, your pain is unusual for you, your pain is concerning you, wound has increased drainage, wound has increased redness . Past History Medical & Surgical History: (1) Osteomyelitis of right foot (2) Failure of outpatient treatment (3) Diabetic foot ulcer (4) Amputated toe (5) Diabetes (6) Skin wound from surgical incision (7) HIV (human immunodeficiency virus infection) . "Provider Documentation" section prepared by William Johnson. . Gold Charmer Recommendations Gold Charmer Recommendations: ACTIVITY RECOMMENDATIONS: Limitations: Heel weight bearing only if able to tolerate. SPECIAL CARE INSTRUCTIONS: * Some drainage onto the dressing is normal and is no cause for alarm. * Some swelling is natural especially after walking. * When resting, keep your foot elevated above the level of your heart. * Call [facility] if you notice: -Increased drainage -Fever over 101 degrees F -Severe constant pain BANDAGE: * Daily dry dressing changes. May change dressing every other day if unable to change daily. * Keep bandage/cast dry at all times. PIN CARE: * Leave pins alone. * If pins come loose or fall out, notify physician. FOLLOW UP VISIT WITH DR. ELLIOTT If appointment is not already scheduled: Please call [facility] after you get home today to schedule a follow-up appointment for 10-[address] Elliott at . Core Measure Problem Core Measures: None [place] Drug Monitoring Program Search Results: patient reviewed within database
--- NOTE | 2017-09-14 11:54 | Discharge Summary ---
Discharge Summary Date of Service Sep 14, 2017. Discharge Summary Admission Date: Sep 02, 2017 at 23:08 Discharge Date: Sep 14, 2017 Discharge Disposition: Rehab Principal Diagnosis: OSTEOMYELITIS, RIGHT FOOT Secondary Diagnoses/Problems: Please refer to hospital course below. Procedures: Revision right transmetatarsal amputation performed 09/09/[address] Osei; status post transfusion of 2 units packed RBCs; R FOOT MIN 3 VIEWS ROUTINE CLINICAL HISTORY: Evaluate for osteomyelitis. COMPARISON: CT of the right foot August 08, 2017. FINDINGS: Postoperative findings consistent with transmetatarsal amputation of the right first through fifth digits is noted. Open wound involving the first metatarsal is noted. There is subtle lucency at the resection site. There is subtle irregularity of the distal aspect of the third metatarsal as well. Alignment of the tarsometatarsal joints is anatomic. IMPRESSION: 1. Status post transmetatarsal amputation of the right first through fifth digits. Open wound involves the distal aspect of the remaining first metatarsal with subtle osteolysis within the first metatarsal which raises the possibility of osteomyelitis. 2. Equivocal osteomyelitis of the distal remaining third metatarsal. Consultations: Ortho Dr. Osei, Infectious Disease Dr. Chaudhari, Vascular Surgery Dr. Rodriguez Pending Studies/Follow-Up: Continue OOB heel down to balance only Daily dressing changes transition to Ciprofloxacin BID x 4 weeks per ID follow up with [facility] in 1 week follow up with Ortho at [facility] -Dr. Osei in 1 week Monitor blood pressure daily Please refer to hospital course below for further details. Fall precautions. Aspiration precautions. Medication Reconciliation New Medications: Amlodipine Besylate (Amlodipine Besylate) 5 Mg Tab 5 MG PO QAM for 30 Days Ferrous Sulfate (Ferrous Sulfate) 325 Mg Tab 325 MG PO DAILY@1200 for 30 Days Heparin Sod (Porcine) (Heparin Sodium) 5,000 Unit/0.5 Ml Inj 5000 UNIT SQ Q12 for 14 Days Oxycodone HCl (Oxycodone HCl) 5 Mg Tab 5 MG PO Q4H PRN for Moderate Pain(pain rating 4-6) for 7 Days, #10 TAB Continued Medications: Abacavir Lkknuto-Dvqjjgjfyz-Av (Trizivir) 1 Tab Tab 1 TAB PO UD Carvedilol (Coreg) 6.25 Mg Tab 6.25 MG PO Q12, TAB Ciprofloxacin Hcl (Cipro) 500 Mg Tab 500 MG PO BID for 28 Days, #56 TAB 0 Refills (This prescription has been renewed ) Clopidogrel (Plavix) 75 Mg Tab 75 MG PO DAILY, TAB Efavirenz (Sustiva) 600 Mg Tab 600 MG PO HS, TAB Fluoxetine (Prozac) 20 Mg Cap 20 MG PO DAILY, CAP Metformin Hcl (Glucophage) 500 Mg Tab 500 MG PO BID, TAB Multivitamin (Multivitamin) Tab 1 TAB PO DAILY, TAB Discontinued Medications: Acetaminophen/Codeine (Tylenol W/Codeine #3) 300 Mg/30 Mg Tab 2 TAB PO Q6H PRN for Pain, TAB Admission Information HPI (per Admitting provider): DATE OF ADMISSION: 09/02/2017 CHIEF COMPLAINT: Right foot infection. HISTORY OF PRESENT ILLNESS: A 62-year-old male with past medical history significant for hypertension, diabetes, HIV positive, on antivirals. Presents with right foot infection. The patient recently moved to [place] to live with his son. In [facility] in [place],in JUNE he had right toe 1 to 5 amputation. The patient says after that he moved to [place] and [facility]. He is on antibiotics, Cipro, but today home care nurse saw him and said that he needed to come to the hospital. His bone is exposed on the right foot but no foul smelling and drainage seen. No obvious erythema seen. Denies any fever, chills. Currently resting comfortably and hemodynamically stable. No blurred vision, no chest pain. Denies any headaches. No earaches. No chest pain, no shortness of breath, no nausea, no vomiting, no abdominal pain. Says he is doing okay and everything else is fine and does not want to answer the review questions. Physical Exam (per Admitting): GENERAL: Patient is of moderate build, not in distress. VITAL SIGNS: Temperature 36.7, pulse 100, respiratory rate 18, blood pressure 142/90, oxygen 100% room air. HEENT: No pallor, no icterus. NECK: No neck masses. CARDIOVASCULAR: S1, S2 heard, regular rate and rhythm, no murmur, no gallop. RESPIRATORY SYSTEM: Normal AP diameter. No accessory muscle use. No wheezing, no crackles. ABDOMEN: Soft, bowel sounds present, nontender, no distention. CENTRAL NERVOUS SYSTEM: Nonfocal. EXTREMITIES: No edema seen. Right foot from first to fifth toe s/p amputation amputation site is exposed with visible bone, but no drainage and no foul swelling or erythema seen. Hospital Course OSTEOMYELITIS, RIGHT FOOT Revision right transmetatarsal amputation performed 09/09/[address] Osei Per Ortho: Continue OOB heel down to balance only Daily dressing changes Infectious Disease Service consulted Blood cultures negative given IV Vancomycin and piperacillin / tazobactam since 09/03/17 upon discharge, plan to transition to Ciprofloxacin BID x 4 weeks per ID follow up with [facility] in 1 week follow up with Ortho at [facility] -Dr. 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 1. Stent within the right superficial femoral artery which is patent. 2. Moderate to moderate a significant small vessel arterial occlusive change bilaterally. 3. Small focal area of stenosis and occlusion Mid distal left superficial femoral artery with moderate reconstitution. Angiography RLE 09/07/17: iliac and common femoral artery- moderate disease superficial femoral artery- patent stent with moderate stenosis distally popliteal artery- patent until takeoff of the anterior tibial anterior tibial- occluded with reconstitution at the interosseous membrane peroneal artery- occluded with reconstitution in the upper third of the calf posterior tibial-occluded No interventions performed. already on Plavix follow up with Vascular Surgery as outpatient ANEMIA, IRON DEFICIENCY, POSSIBLY FROM ACUTE BLOOD LOSS Hgb 13.3 --> 10.5 preop --> 7.7 postop. No overt GI bleeding. Hemodynamically stable. 2 units pRBC ordered FOBT negative -- Hg improved to 9.3 no obvious bleeding -- repeat CBC in 3 days monitor Hg specially while on Heparin SC for DVT prophylaxis Iron 35 FeSO4 ordered -- monitor HYPERTENSION not at goal Amlodipine added continue Carvedilol improved -- monitor BP daily HIV Patient does not know results of recent viral load or CD4. Old records requested. Continue Trizivir. follow up as outpatient DM TYPE 2 Hgb A1C = 6.2. Hold metformin during hospital stay. FBS today = 138. Insulin coverage as necessary. resume Metformin VTE PROPHYLAXIS resume Heparin q12h re-evaluate duration of heparin DISPOSITION patient agreeable to transition to Rehab follow up with [facility] in 1 week follow up with Ortho at [facility] in 1 week Primary Care follow-up with [facility]. Will need follow-up with ID for HIV. explained to patient at length regarding his medical conditions and plan of care all questions answered he is comfortable and agreeable with plan of care Total time spent on discharge = 55 This includes examination of the patient, discharge planning, medication reconciliation, and communication with other providers. Discharge Instructions Discharge Instructions Date of Service Sep 14, 2017. Admission Reason for Admission: Osteomyelitis Discharge Discharge Diagnosis / Problem: Right foot osteomyelitis Discharge Goals Goal(s): Diagnostic testing, Therapeutic intervention Activity Recommendations Activity Level: Assistance Required Therapies: Physical Therapy, Occupational Therapy Lifting Limitations: until after follow-up appointment Exercise/Sports Limitations: until after follow-up appointment Right heel weight bearing only if able to tolerate. Additional Information Patient informed of condition: Yes Advance Directives: No (Unknown) DNR: No (patient is a full code) Level of Care: Acute Rehab Communicable Disease: No Prognosis: Improving Instructions / Follow-Up Instructions / Follow-Up Continue OOB heel down to balance only Daily dressing changes transition to Ciprofloxacin BID x 4 weeks per ID follow up with [facility] in 1 week follow up with Ortho at [facility] -Dr. Osei in 1 week Monitor blood pressure daily Please refer to accompanying hospital discharge summary for further details. Fall precautions. Aspiration precautions. Current Hospital Diet Patient's current hospital diet: Diabetes Type 2 Diet Discharge Diet Recommended Diet: AHA Diet (Heart Healthy), Diabetes Type 2 Diet Procedures Procedures Performed: Right Foot Transmetatarsal Amputation Revision Including First through Fifth metatarsals Pending Studies Studies pending at discharge: no Physician Orders On Transfer Special Precautions: Continue OOB heel down to balance only Daily dressing changes transition to Ciprofloxacin BID x 4 weeks per ID follow up with [facility] in 1 week follow up with Ortho at [facility] in 1 week Monitor blood pressure daily Please refer to accompanying hospital discharge summary for further details. Fall precautions. Aspiration precautions. Laboratory Results Hemoglobin A1c Test 09/06/17 06:19 Range/Units Estimated Average Glucose 131 mg/dl Hemoglobin A1c 6.2 H 4.5-5.6 % Medical Emergencies . Who to Call and When: Medical Emergencies: If at any time you feel your situation is an emergency, please call 911 immediately. . Non-Emergent Contact Non-Emergency issues call your: Primary Care Provider, Surgeon (Dr. Osei) Call Non-Emergent contact if: you have a fever, your pain is not controlled, your pain is worsening, your pain is unusual for you, your pain is concerning you, wound has increased drainage, wound has increased redness . Past History Medical & Surgical History: (1) Osteomyelitis of right foot (2) Failure of outpatient treatment (3) Diabetic foot ulcer (4) Amputated toe (5) Diabetes (6) Skin wound from surgical incision (7) HIV (human immunodeficiency virus infection) . "Provider Documentation" section prepared by William Johnson. . Artillery Meteorological Man Recommendations Artillery Meteorological Man Recommendations: ACTIVITY RECOMMENDATIONS: Limitations: Heel weight bearing only if able to tolerate. SPECIAL CARE INSTRUCTIONS: * Some drainage onto the dressing is normal and is no cause for alarm. * Some swelling is natural especially after walking. * When resting, keep your foot elevated above the level of your heart. * Call [facility] if you notice: -Increased drainage -Fever over 101 degrees F -Severe constant pain BANDAGE: * Daily dry dressing changes. May change dressing every other day if unable to change daily. * Keep bandage/cast dry at all times. PIN CARE: * Leave pins alone. * If pins come loose or fall out, notify physician. FOLLOW UP VISIT WITH DR. OSEI If appointment is not already scheduled: Please call [facility] after you get home today to schedule a follow-up appointment for 10-[address] Osei at . Core Measure Problem Core Measures: None [place] Drug Monitoring [place] Search Results: patient reviewed within database
[2017-09-14] MEDS: FERROUS SULFATE 325 MG TAB PO SCH (12:25)
[2017-09-14 15:31] LABS: LSP % CELLS ANALYZED CD4 44 % (30-61); LSP ABSOLUTE CT CD4 483 cells/uL (490-1740)
[2017-09-14] MEDS ORDERED: CIPROFLOXACIN 500 MG TAB PO SCH (21:00)
[2017-09-21] MEDS ORDERED: ABACTAB11 PO (13:05)
== END 2017-09-14 14:41 | DRG 617 ==
LOC: C.EDC 20:44 → EDBD 20:44 → C.MSN 23:08 → ENRESERV 23:20
PROVIDERS: ADMIT Internal Medicine; ATTEND Internal Medicine
PROC: B41DYZZ Fluoroscopy of Aorta and Bilateral Lower Extremity Arteries using Other Contrast (ICD-10-PCS; 2017-09-07)
PROC: 0Y6M0ZB Detachment at Right Foot, Partial 2nd Ray, Open Approach (ICD-10-PCS; principal; 2017-09-09 11:45)
PROC: 0Y6M0ZD Detachment at Right Foot, Partial 4th Ray, Open Approach (ICD-10-PCS; principal; 2017-09-09 11:45)
PROC: 0Y6M0ZF Detachment at Right Foot, Partial 5th Ray, Open Approach (ICD-10-PCS; principal; 2017-09-09 11:45)
PROC: 0Y6M0Z9 Detachment at Right Foot, Partial 1st Ray, Open Approach (ICD-10-PCS; principal; 2017-09-09 11:45)
PROC: 0Y6M0ZC Detachment at Right Foot, Partial 3rd Ray, Open Approach (ICD-10-PCS; principal; 2017-09-09 11:45)
DX: E11.69 Type 2 diabetes mellitus with other specified complication (principal); T81.31XA Disruption of external operation (surgical) wound, not elsewhere classified, initial encounter; M86.8X7 Other osteomyelitis, ankle and foot; E11.51 Type 2 diabetes mellitus with diabetic peripheral angiopathy without gangrene; Z21 Asymptomatic human immunodeficiency virus [HIV] infection status; Z83.3 Family history of diabetes mellitus; Z87.891 Personal history of nicotine dependence; I10 Essential (primary) hypertension; Z79.899 Other long term (current) drug therapy; Z89.421 Acquired absence of other right toe(s); Z79.84 Long term (current) use of oral hypoglycemic drugs; I73.9 Peripheral vascular disease, unspecified; Y83.8 Other surgical procedures as the cause of abnormal reaction of the patient, or of later complication, without mention of misadventure at the time of the procedure; Y92.019 Unspecified place in single-family (private) house as the place of occurrence of the external cause